=== PATIENT | male | born 1960 | race Caucasian/White ===

== ENCOUNTER 2025-06-26 11:08 | Inpatient (IN) | payer OTHER ==
--- OUTSIDE RECORDS SUMMARY | 2025-06-26 11:13 | XMS REPORT | Continuity of Care Document ---
Author Name Unknown Address [address] [facility]. [address] [place] [address] [facility] [address] [facility] [address] [place] [address] Care Team Providers Care Teacher'S Assistant Name Role Phone NO PHYSICIAN, . Primary Care Physician Unavailab STEVIE Butcher Attending Clinician Unavailable ART HALL Attending Clinician Unavailalireza QUEZADA Attending Clinician Unavailable ULISES STEWART Attending Clinician Unavailable TJ AZUL I. Attending Clinician UnavailLAZARA Chinchilla Attending Clinician Unavailable PILAR Admitting Clinician Unavailable Problems Condition Name Condition Details Condition Category Status Onset Date Resolution Date Last Treatment Date Treating Clinician Comments Source Dehydratio n Problem [facility] Dental abscess Problem [facility] Low back pain Problem [facility] Pneumonia Problem [facility] Vir[facility] infection Problem [facility] Cocaine abuse Problem [facility] Hypertensi on Problem [facility] Social History Social Habit Start Date Stop Date Quantity Comments Source History of tobacco use [facility] Smoking Status Start Date Stop Date Source Current some day smoker 2023-03-20 10:44:00 [facility] Medications Ordered Medication Name Filled Medication Name Start Date Stop Date Current Medication? Ordering Clinician Indication Dosage Frequency Signature (SIG) Comments Components Source Amlodipine Besylate (Norvasc *) 10 Mg TAB Amlodipine Besylate (Norvasc *) 10 Mg TAB 06-11 12:59: 00 Yes 1{tbl} [facility] Albuterol (Ventolin Hfa *) 90 Mcg/Act INH Albuterol (Ventolin Hfa *) 90 Mcg/Act INH 03-20 13:55: 00 Yes 2 [facility] Azithromyci n (Zithromax Z-Tan *) 250 Mg TAB Azithromyci n (Zithromax Z-Tan *) 250 Mg TAB 03-20 13:55: 00 Yes 1{tbl} [facility] Benzonatate (Tessalon *) 100 Mg CAP Benzonatate (Tessalon *) 100 Mg CAP 03-20 13:55: 00 Yes 1 [facility] Prednisone (Prednisone *) 20 Mg TAB Prednisone (Prednisone *) 20 Mg TAB 03-20 13:55: 00 Yes 2{tbl} [facility] Acetaminoph en W/ Codeine #3 * (Tylenol Codeine #3 300MG/30MG *) 1 Tab TAB Acetaminoph en W/ Codeine #3 * (Tylenol Codeine #3 300MG/30MG *) 1 Tab TAB 03-01 10:02: 30 Yes 1{tbl} [facility] Sertraline Hcl (Zoloft *) 50 Mg TAB Sertraline Hcl (Zoloft *) 50 Mg TAB 03-01 10:02: 30 Yes 50mg [facility] Trazodone Hcl (Desyrel 100 Mg*) 100 Mg TAB Trazodone Hcl (Desyrel 100 Mg*) 100 Mg TAB 03-01 10:02: 30 Yes 100mg [facility] Vital Signs Vital Name Observation Time Observation Value Comments S ource Height 2025-06-11 08:54:00 165.945193 cm [facility] Weight 2025-06-11 08:54:00 70.823016 kg [facility] BMI (Body Mass Index) 2025-06-11 08:54:00 25.8 kg/m2 [facility] Height 2025-06-10 19:00:00 167.096493 cm [facility] Weight 2025-06-10 19:00:00 70.329151 kg [facility] BMI (Body Mass Index) 2025-06-10 19:00:00 25.0 kg/m2 [facility] Encounters Start Date/Time End Date/Time Encounter Type Admission Type Attending [facility] Care Department Encounter ID Source 2025-06-11 08:43:00 2025-06-11 13:45:00 Emergency ER STEVIE GAMA [facility] [id number] [facility] 2025-06-11 08:43:00 2025-06-11 13:45:00 Departed Emergency Room [facility] [id number] [facility] 2025-06-10 19:01:00 2025-06-10 22:30:00 Emergency ER STEVIE GAMA [facility] [id number] [facility] 2025-06-10 19:01:00 2025-06-10 22:30:00 Departed Emergency Room [facility] [id number] [facility] 2023-03-20 10:34:00 2023-03-20 15:10:00 Emergency ER ART HALL [facility] [id number] [facility] 2019-08-02 15:47:00 2019-08-02 16:33:00 Emergency ER ULISES STEWART [facility] [id number] [facility] 2016-08-28 12:21:00 2016-08-28 12:21:00 Outpatient TJ CHUN [facility] [id number] [facility] 2016-07-31 12:06:00 2016-07-31 12:06:00 Outpatient TJ CHUN [facility] [id number] [facility] 2016-03-01 09:33:00 2016-03-01 09:33:00 Outpatient LAZARA GOVEA [facility] [id number] [facility] 2015-12-01 10:57:00 2015-12-01 10:57:00 Outpatient TJ CHUN [facility] [id number] [facility] Results Test Description Test Time Test Comments Results Result Co mments Source [facility] ZykLolmimtto9689-36-90 10:28:00* Test Item Value Reference Range Interpretation Comme nts Methadone Level (test code = VTX2070) NEGATIVE [facility] CtrBenzodiazepines screen [id number] 10:28:00* Test Item Value Reference Range Interpretation Comme [facility] Urine Benzodiazepines Screen (test code = 551881641) NEGATIVE [facility] CtrCannabinoids (6-tzlfgbz-IKN) juchcnxirdl6660-34-16 10:28:00* Test Item Value Reference Range Interpretation Comme [facility] Urine Cannabinoids (test cod e = 451650649) NEGATIVE [facility] CtrCocaine metabolite digtuu8332-00-34 10:28:00* Test Item Value Reference Range Interpretation Comme [facility] Urine Cocaine Metabolite (te st code = 626341613) POSITIVE [facility] CtrOpiates tufoj1423-03-68 10:28:00* Test Item Value Reference Range Interpretation Comme [facility] Urine Opiates Screen (test c ode = 643880312) NEGATIVE [facility] CtrUrine hydrocodone measurement (mass/volume) 2025-06-11 10:28:00* Test Item Value Reference Range Interpretation Comme nts Hydrocodone Level (test code = 3681-4) NEGATIVE [facility] CtrUrine fentanyl measurement (mass/volume)2025-06-11 10:28:00* Test Item Value Reference Range Interpretation Comme [facility] Urine Fentanyl Screen (test code = 3637-6) NEGATIVE [facility] CtrPhencyclidine (PCP) [id number] 10:28:00* Test Item Value Reference Range Interpretation Comme nts Urine Phencyclidine (PCP) Le fuad (test code = 872700856) NEGATIVE [facility] CtrPropoxyphene [Mass/volume] in Yxrrz1585-98-49 10:28:00* Test Item Value Reference Range Interpretation Comme nts Propoxyphene Level (test cod e = 3545-1) NEGATIVE [facility] CtroxyCODONE [Mass/volume] in Ckcwm1151-82-03 10:28:00* Test Item Value Reference Range Interpretation Comme nts Oxycodone Level (test code = 48936-0) NEGATIVE [facility] CtrSpecific gravity of Urine by Automated test strip 2025-06-11 10:26:00* Test Item Value Reference Range Interpretation Comme nts Urine Specific [place] (test code = 23758-3) 1.038 [facility] LqhZnohas7395-55-51 10:23:00* Test Item Value Reference Range Interpretation Comme nts Lipase (test code = 167126701) 22 [facility] CtrRBC count ur hciy0303-82-99 10:19:00* Test Item Value Reference Range Interpretation Comme nts Urine RBC (test code = 798-9) 21-50 [facility] CtrUrine examination for white blood cells (WBC) 2025-06-11 10:19:00* Test Item Value Reference Range Interpretation Comme nts Urine WBC (test code = 853832290) 3-5 [facility] CtrAutomated epithelial cells count in urine sediment (number/area)2025-06-11 10:19:00* Test Item Value Reference Range Interpretation Comme nts Urine Epithelial Cells (test code = 08413-2) 3-5 [facility] CtrBacteria detection in urine sediment by light kmhlmszddx0790-75-65 10:19:00* Test Item Value Reference Range Interpretation Comme nts Urine Bacteria (test code = 04918-8) None Seen [facility] CtrUrine casts detection by automated method 2025-06-11 10:19:00* Test Item Value Reference Range Interpretation Comme nts Urine Casts (test code = 53926-6) 11-20 [facility] CtrColor of Urine by Qntr2001-70-82 10:17:00* Test Item Value Reference Range Interpretation Comme nts Urine Color (test code = 75905-8) Yellow [facility] CtrAppearance of Lrxfw6967-27-20 10:17:00* Test Item Value Reference Range Interpretation Comme nts Urine Appearance (test code = 5767-9) Clear [facility] CtrUrine glucose wlndyspfu9822-91-90 10:17:00* Test Item Value Reference Range Interpretation Comme nts Urine Glucose (UA) (test code = 2349-9) Trace [facility] CtrBilirubin se7976-46-20 10:17:00* Test Item Value Reference Range Interpretation Comme nts Urine Bilirubin (test code = 792480299) Negative [facility] CtrKetones va4333-92-86 10:17:00* Test Item Value Reference Range Interpretation Comme [facility] Urine Ketones (test code = 57639579) Negative [facility] CtrUrine blood hpruancez9454-41-73 10:17:00* Test Item Value Reference Range Interpretation Comme nts Urine Blood (test code = 467488-3) 1+ (SMALL) [facility] CtrpH wu3123-55-43 10:17:00* Test Item Value Reference Range Interpretation Comme nts Urine pH (test code = 2756-5) 6.500 [facility] CtrProtein hr1183-98-18 10:17:00* Test Item Value Reference Range Interpretation Comme nts Urine Protein (test code = 96988570) 4+ [facility] CtrUrobilinogen, urine, mc3974-78-35 10:17:00* Test Item Value Reference Range Interpretation Comme [facility] Urine Urobilinogen (test cod e = 924933369) 0.2 [facility] nitrate rijrmxbhy6888-44-86 10:17:00* Test Item Value Reference Range Interpretation Comme nts Urine Nitrate (test code = 98771-1) Negative [facility] leukocyte esterase podnediwh4102-97-42 10:17:00* Test Item Value Reference Range Interpretation Comme nts Urine Leukocyte Esterase (te st code = 965115-9) Negative [facility] CtrAlcohol level, dohkk3004-62-39 09:58:00* Test Item Value Reference Range Interpretation Comme nts Ethyl Alcohol Level (test co de = 627497285) < 10.0 [facility] CtrBlood hemoglobin A1C measurement (mass/volume) 2025-06-11 09:52:00* Test Item Value Reference Range Interpretation Comme [facility] Hemoglobin A1c (test code = 10860-0) 5.7 [facility] CtrNT-proBNP ebusugsbxkp8640-84-06 09:45:00* Test Item Value Reference Range Interpretation Comme [facility] BN-Nru-S-Type Natriuretic Pe ptide (test code = 919695318) 325 [facility] CtrSerum or plasma cardiac troponin I panel by high sensitivity bfjcha2109-21-94 09:44:00* Test Item Value Reference Range Interpretation Comme [facility] Troponin T High Sensitivity (test code = 88268-7) 14.3 [facility] CtrBilirubin vbats6280-50-49 09:42:00* Test Item Value Reference Range Interpretation Comme [facility] Total Bilirubin (test code = ZBK9806) 0.2 [facility] CtrSerum or plasma urea nitrogen measurement (mass/volume)2025-06-11 09:42:00* Test Item Value Reference Range Interpretation Comme [facility] Blood Urea Nitrogen (test co de = 3094-0) 15 [facility] ZtnQBJ1618-58-86 09:42:00* Test Item Value Reference Range Interpretation Comme nts Aspartate Amino Transf (AST/ SGOT) (test code = IQP7982) 10 [facility] CtrCreatinine sgbel3950-40-52 09:42:00* Test Item Value Reference Range Interpretation Comme nts Creatinine (test code = 119803238) 0.80 [facility] CtrEstimated glomerular filtration rate (GFR) glqtdxnmeyzem0648-29-51 09:42:00* Test Item Value Reference Range Interpretation Comme [facility] Glomerular Filtration Rate C alc (test code = 349352255) > 60.00 [facility] CtrBUN/creatinine zzijx7637-37-65 09:42:00* Test Item Value Reference Range Interpretation Comme nts BUN/Creatinine Ratio (test c ode = 77550874) 18.8 [facility] CtrBody fluid potassium twrmnuhvglf7286-63-99 09:42:00* Test Item Value Reference Range Interpretation Comme nts Potassium Level (test code = 2821-7) 4.0 [facility] JvqWC37940-92-79 09:42:00* Test Item Value Reference Range Interpretation Comme nts Carbon Dioxide Level (test c ode = 65934477) 26 [facility] CtrAnion gap aiuhoqghtyo6549-62-88 09:42:00* Test Item Value Reference Range Interpretation Comme nts Anion Gap (test code = 27148457) 12.0 [facility] CtrCalcium qpnth1353-27-43 09:42:00* Test Item Value Reference Range Interpretation Comme nts Calcium Level (test code = 41769760) 8.2 [facility] MobGdgdbnxbg4384-79-55 09:42:00* Test Item Value Reference Range Interpretation Comme nts Magnesium Level (test code = 51750233) 2.1 [facility] CtrGlobulin hhc1635-45-72 09:42:00* Test Item Value Reference Range Interpretation Comme nts Globulin (test code = 189843616) 3.1 [facility] CtrALT (SGPT) ser/dafo9396-77-64 09:42:00* Test Item Value Reference Range Interpretation Comme nts Alanine Aminotransferase (AL T/SGPT) (test code = 1742-6) 6 [facility] CtrAmylase wfxdr9783-92-32 09:42:00* Test Item Value Reference Range Interpretation Comme nts Amylase Level (test code = 1798-8) 43 [facility] CtrALP ser/ovip7128-37-93 09:42:00* Test Item Value Reference Range Interpretation Comme nts Total Alkaline Phosphatase ( test code = 6768-6) 117 [facility] RxqUwnjszh0324-22-06 09:38:00* Test Item Value Reference Range Interpretation Comme nts Ammonia (test code = HRY3395) 16.1 [facility] CtrAbsolute eosinophil ehijo0857-06-41 09:21:00* Test Item Value Reference Range Interpretation Comme nts Eosinophils # (Auto) (test c ode = OTA9674) 0.21 [facility] CtrRBC qdnqn3804-24-58 09:21:00* Test Item Value Reference Range Interpretation Comme [facility] Red Blood Count (test code = 32101053) 4.64 [facility] NsyUyrkvwygiy1505-68-55 09:21:00* Test Item Value Reference Range Interpretation Comme [facility] Hematocrit (test code = 30342784) 44.6 [facility] CtrMCV (mean corpuscular volume) determination 2025-06-11 09:21:00* Test Item Value Reference Range Interpretation Comme [facility] Mean Corpuscular Volume (rowan t code = 46369-0) 96.1 [facility] CtrMean corpuscular hemoglobin (MCH) determination 2025-06-11 09:21:00* Test Item Value Reference Range Interpretation Comme [facility] Mean Corpuscular Hemoglobin (test code = 56913504) 31.0 [facility]Mean corpuscular hemoglobin concentration (MCHC) ukgwgzlcnbcyy3746-58-29 09:21:00* Test Item Value Reference Range Interpretation Comme [facility] Mean Corpuscular Hemoglobin Concent (test code = 95570504) 32.3 [facility] CtrRBC distribution width coefficient of variation 2025-06-11 09:21:00* Test Item Value Reference Range Interpretation Comme [facility] Red Cell Distribution Width (test code = 56575702) 11.9 [facility] CtrPlatelet kzyaa7424-31-09 09:21:00* Test Item Value Reference Range Interpretation Comme [facility] Platelet Count (test code = 25863306) 342 [facility] CtrMean platelet zjwfyo2776-32-83 09:21:00* Test Item Value Reference Range Interpretation Comme [facility] Mean Platelet Volume (test c ode = 68347108) 8.9 [facility] CtrNeutrophils seg % wft4188-82-11 09:21:00* Test Item Value Reference Range Interpretation Comme [facility] Neutrophils (%) (Auto) (test code = 91017-4) 61.2 [facility] CtrAbsolute immature granulocyte zxiil5397-77-89 09:21:00* Test Item Value Reference Range Interpretation Comme nts Absolute Immature Granulocyt e (auto (test code = 16210-1) 0.01 [facility] CtrBasophil % kcnhgt5093-15-52 09:21:00* Test Item Value Reference Range Interpretation Comme nts Basophils (%) (Auto) (test c ode = 31173-7) 0.5 [facility] CtrBlood band neutrophils count (number/volume) 2025-06-11 09:21:00* Test Item Value Reference Range Interpretation Comme nts Neutrophils # (Auto) (test c ode = 61715-1) 3.95 [facility] CtrAbsolute lymphocyte ttpju0104-56-05 09:21:00* Test Item Value Reference Range Interpretation Comme nts Lymphocytes # (Auto) (test c ode = 53201-8) 1.83 [facility] CtrAbsolute basophil tbtvh7956-90-09 09:21:00* Test Item Value Reference Range Interpretation Comme nts Basophils # (Auto) (test cod e = 66096323) 0.03 [facility] CtrAbsolute NRBC hener3476-04-72 09:21:00* Test Item Value Reference Range Interpretation Comme nts Nucleated Red Blood Cells # (test code = 410099103) 0 [facility] CtrAdenovirus Ab [Presence] in Pqndihwo3266-24-54 20:19:00* Test Item Value Reference Range Interpretation Comme [facility] Nasopharyngeal Adenovirus PC R (test code = 71706-5) Not detected [facility] coronavirus antigen detection by kfbmtidxkluxbcuxgw1050-66-88 20:19:00* Test Item Value Reference Range Interpretation Comme nts Nasopharyngeal Coronavirus 2 29E PCR (test code = 76027-8) Not detected [facility] CtrCoronavirus HKU1 RNA assay by [id number] 20:19:00* Test Item Value Reference Range Interpretation Comme nts Nasopharyngeal Coronavirus H KU1 PCR (test code = 76445-6) Not detected [facility] CtrCoronavirus NL63 RNA assay by YPU7595-44-57 20:19:00* Test Item Value Reference Range Interpretation Comme nts Nasopharyngeal Coronavirus N L63 PCR (test code = 52574-3) Not detected [facility] coronavirus OC43 antigen detection by jmcjkjouiiiuzwmsgh4872-17-10 20:19:00* Test Item Value Reference Range Interpretation Comme nts Nasopharyngeal Coronavirus O C43 PCR (test code = 27537-8) Not detected [facility] Resources[facility] coronavirus RNA [Presence] in Specimen by URIEL with probe bdutdsedo9318-28-06 20:19:00* Test Item Value Reference Range Interpretation Comme nts Nasopharyngeal SARS-CoV-2 PC R (test code = 94208-8) Not detected [facility] ResourcesHurange metapneumovirus detection by EYL2603-44-35 20:19:00* Test Item Value Reference Range Interpretation Comme nts Nasophryn Human Metapneumovi amelia PCR (test code = 43170-5) Not detected [facility] CtrRespiratory specimen human rhinovirus 1 and 2 RNA detection by probe and target amplification cgxcxb7071-08-48 20:19:00* Test Item Value Reference Range Interpretation Comme nts Nasopharyn Human Rhino/Enterovirus (test code = 179076-1) Not detected [facility] CtrInfluenza virus A Ag [Presence] in Specimen 2025-06-10 20:19:00* Test Item Value Reference Range Interpretation Comme [facility] Nasopharyngeal Influenza Typ e A PCR (test code = 45365-0) Not detected [facility] CtrInfluenza virus B Ab [Units/volume] in Specimen 2025-06-10 20:19:00* Test Item Value Reference Range Interpretation Comme [facility] Nasopharyngeal Influenza B ( PCR) (test code = 19115-5) Not detected [facility] CtrNasopharyngeal specimen parainfluenza virus type 1 RNA detection by probe and target amplification vnfnii3530-10-16 20:19:00* Test Item Value Reference Range Interpretation Comme nts Nasopharyngeal Parainfluenza 1 PCR (test code = 59070-5) Not detected [facility] CtrParainfluenza virus 2 RNA [Presence] in Specimen by URIEL with probe ppnfvwwug3037-02-79 20:19:00* Test Item Value Reference Range Interpretation Comme nts Nasopharyngeal Parainfluenza 2 PCR (test code = 90698-7) Not detected [facility] CtrParainfluenza virus 3 RNA [Presence] in Specimen by URIEL with probe uffilhgxl9363-38-26 20:19:00* Test Item Value Reference Range Interpretation Comme nts Nasopharyngeal Parainfluenza 3 PCR (test code = 59000-6) Not detected [facility] CtrParainfluenza voqso8984-08-20 20:19:00* Test Item Value Reference Range Interpretation Comme nts Nasopharyngeal Parainfluenza 4 PCR (test code = 10336-6) Not detected [facility] [facility] CtrRapid respiratory syncytial virus (RSV) antigen [id number] 20:19:00* Test Item Value Reference Range Interpretation Comme nts Nasophr Respiratory Syncytia l Virus (test code = 87891-5) Not detected [facility] CtrBordetella parapertussis [id number] 20:19:00* Test Item Value Reference Range Interpretation Comme nts Nasopharyn Bordetella parapertussis (test code = 20797-1) Not detected [facility] CtrBordetella pertussis Ab [Presence] in Specimen 2025-06-10 20:19:00* Test Item Value Reference Range Interpretation Comme nts Nasopharyngeal Bordetella pertussis (test code = 81012-2) Not detected [facility] CtrChlamydia pneumoniae [id number] 20:19:00* Test Item Value Reference Range Interpretation Comme nts Nasopharyngeal Chlamydia pneumoniae (test code = 99156-5) Not detected [facility] CtrSerum Mycoplasma pneumoniae antibody assay on first specimen (units/volume)2025-06-10 20:19:00* Test Item Value Reference Range Interpretation Comme nts Nasopharyngal Mycoplasma pneumoniae (test code = 47265-3) Not detected [facility] CtrAdenovirus Ab [Presence] in [id number] 20:19:00* Test Item Value Reference Range Interpretation Comme nts Nasopharyngeal Adenovirus PC R (test code = 06711-2) Not detected [facility] CtrHuman coronavirus antigen detection by [id number]-48 20:19:00* Test Item Value Reference Range Interpretation Comme nts Nasopharyngeal Coronavirus 2 29E PCR (test code = 49251-9) Not detected [facility] CtrCoronavirus HKU1 RNA assay by [id number] 20:19:00* Test Item Value Reference Range Interpretation Comme nts Nasopharyngeal Coronavirus H KU1 PCR (test code = 96514-0) Not detected [facility] NL63 RNA assay by [id number] 20:19:00* Test Item Value Reference Range Interpretation Comme nts Nasopharyngeal Coronavirus N L63 PCR (test code = 54224-7) Not detected [facility] coronavirus OC43 antigen detection by xrgsqmswcbwydvdjcg6987-22-13 20:19:00* Test Item Value Reference Range Interpretation Comme nts Nasopharyngeal Coronavirus O C43 PCR (test code = 46963-1) Not detected [facility] Resources[facility] coronavirus RNA [Presence] in Specimen by URIEL with probe [id number] 20:19:00* Test Item Value Reference Range Interpretation Comme nts Nasopharyngeal SARS-CoV-2 PC R (test code = 63618-7) Not detected [facility] Resources[facility] metapneumovirus detection by [id number] 20:19:00* Test Item Value Reference Range Interpretation Comme nts Nasophryn Human Metapneumovi amelia PCR (test code = 28676-6) Not detected [facility] CtrRespiratory specimen human rhinovirus 1 and 2 RNA detection by probe and target amplification [id number] 20:19:00* Test Item Value Reference Range Interpretation Comme nts Nasopharyn Human Rhino/Enterovirus (test code = 181936-1) Not detected [facility] CtrInfluenza virus A Ag [Presence] in Specimen 2025-06-10 20:19:00* Test Item Value Reference Range Interpretation Comme nts Nasopharyngeal Influenza Typ e A PCR (test code = 16785-9) Not detected [facility] CtrInfluenza virus B Ab [Units/volume] in Specimen 2025-06-10 20:19:00* Test Item Value Reference Range Interpretation Comme nts Nasopharyngeal Influenza B ( PCR) (test code = 48268-5) Not detected [facility] CtrNasopharyngeal specimen parainfluenza virus type 1 RNA detection by probe and target amplification [id number] 20:19:00* Test Item Value Reference Range Interpretation Comme nts Nasopharyngeal Parainfluenza 1 PCR (test code = 36205-1) Not detected [facility] CtrParainfluenza virus 2 RNA [Presence] in Specimen by URIEL with probe [id number] 20:19:00* Test Item Value Reference Range Interpretation Comme nts Nasopharyngeal Parainfluenza 2 PCR (test code = 17612-5) Not detected [facility] CtrParainfluenza virus 3 RNA [Presence] in Specimen by URIEL with probe [id number] 20:19:00* Test Item Value Reference Range Interpretation Comme nts Nasopharyngeal Parainfluenza 3 PCR (test code = 06639-5) Not detected [facility] CtrParainfluenza [id number] 20:19:00* Test Item Value Reference Range Interpretation Comme nts Nasopharyngeal Parainfluenza 4 PCR (test code = 32137-2) Not detected [facility] CtrRapid respiratory syncytial virus (RSV) antigen [id number] 20:19:00* Test Item Value Reference Range Interpretation Comme nts Nasophr Respiratory Syncytia l Virus (test code = 40847-4) Not detected [facility] CtrBordetella parapertussis [id number] 20:19:00* Test Item Value Reference Range Interpretation Comme nts Nasopharyn Bordetella parapertussis (test code = 74234-4) Not detected [facility] CtrBordetella pertussis Ab [Presence] in Specimen 2025-06-10 20:19:00* Test Item Value Reference Range Interpretation Comme nts Nasopharyngeal Bordetella pertussis (test code = 99584-3) Not detected [facility] CtrChlamydia pneumoniae [id number] 20:19:00* Test Item Value Reference Range Interpretation Comme nts Nasopharyngeal Chlamydia pneumoniae (test code = 92595-5) Not detected [facility] CtrSerum Mycoplasma pneumoniae antibody assay on first specimen (units/volume)2025-06-10 20:19:00* Test Item Value Reference Range Interpretation Comme nts Nasopharyngal Mycoplasma pneumoniae (test code = 80998-9) Not detected [facility] CtrNT-proBNP jxskebmqyce4399-31-35 19:52:00* Test Item Value Reference Range Interpretation Comme nts GD-Ptd-M-Type Natriuretic Pe ptide (test code = 671679312) 281 [facility] CtrSerum or plasma cardiac troponin I panel by high sensitivity fzcebv4383-68-25 19:51:00* Test Item Value Reference Range Interpretation Comme nts Troponin T High Sensitivity (test code = 53178-1) 16.4 [facility] VqbPhqtfcn8218-06-94 19:50:00* Test Item Value Reference Range Interpretation Comme nts Ammonia (test code = LNO8245) 39.2 [facility] CtrAlcohol level, [id number] 19:50:00* Test Item Value Reference Range Interpretation Comme nts Ethyl Alcohol Level (test co de = 297800937) < 10.0 [facility] CtrBilirubin iimjw6988-22-85 19:46:00* Test Item Value Reference Range Interpretation Comme nts Total Bilirubin (test code = HBO3085) < 0.2 [facility] CtrSerum or plasma urea nitrogen measurement (mass/volume)2025-06-10 19:46:00* Test Item Value Reference Range Interpretation Comme nts Blood Urea Nitrogen (test co de = 3094-0) 16 [facility] [id number] 19:46:00* Test Item Value Reference Range Interpretation Comme nts Aspartate Amino Transf (AST/ SGOT) (test code = VCR8430) 10 [facility] CtrCreatinine [id number] 19:46:00* Test Item Value Reference Range Interpretation Comme nts Creatinine (test code = 714553224) 0.93 [facility] CtrEstimated glomerular filtration rate (GFR) jzmarlxhqpuxo6382-72-55 19:46:00* Test Item Value Reference Range Interpretation Comme nts Glomerular Filtration Rate C alc (test code = 013339850) > 60.00 [facility] CtrBUN/creatinine lkqxv5501-52-28 19:46:00* Test Item Value Reference Range Interpretation Comme nts BUN/Creatinine Ratio (test c ode = 35248649) 17.2 [facility] CtrBody fluid potassium xujyihbslqi3586-11-89 19:46:00* Test Item Value Reference Range Interpretation Comme nts Potassium Level (test code = 2821-7) 3.6 [facility] IyfPP84477-85-13 19:46:00* Test Item Value Reference Range Interpretation Comme nts Carbon Dioxide Level (test c ode = 21974520) 25 [facility] CtrAnion gap jjdryweyirg9603-59-62 19:46:00* Test Item Value Reference Range Interpretation Comme nts Anion Gap (test code = 32768986) 13.6 [facility] CtrCalcium sqjyx0661-07-11 19:46:00* Test Item Value Reference Range Interpretation Comme nts Calcium Level (test code = 81212539) 8.1 [facility] LjvOvlxkhggu6532-69-19 19:46:00* Test Item Value Reference Range Interpretation Comme nts Magnesium Level (test code = 33625480) 2.0 [facility] CtrGlobulin drt4103-04-30 19:46:00* Test Item Value Reference Range Interpretation Comme nts Globulin (test code = 870180172) 2.8 [facility] CtrALT (SGPT) ser/kgcr3620-54-75 19:46:00* Test Item Value Reference Range Interpretation Comme nts Alanine Aminotransferase (AL T/SGPT) (test code = 1742-6) 7 [facility] CtrAmylase [id number] 19:46:00* Test Item Value Reference Range Interpretation Comme nts Amylase Level (test code = 1798-8) 46 [facility] XfdBzqrdu4633-26-93 19:46:00* Test Item Value Reference Range Interpretation Comme nts Lipase (test code = 492122887) 29 [facility] CtrALP ser/fdqd7924-30-95 19:46:00* Test Item Value Reference Range Interpretation Comme nts Total Alkaline Phosphatase ( test code = 6768-6) 115 [facility] ResourcesMean corpuscular hemoglobin concentration (MCHC) nrfcvhdxexqds7895-44-23 19:20:00* Test Item Value Reference Range Interpretation Comme [facility] Mean Corpuscular Hemoglobin Concent (test code = 89692352) 33.0 [facility] CtrRBC distribution width coefficient of variation 2025-06-10 19:20:00* Test Item Value Reference Range Interpretation Comme [facility] Red Cell Distribution Width (test code = 73548231) 12.0 [facility] CtrPlatelet [id number] 19:20:00* Test Item Value Reference Range Interpretation Comme [facility] Platelet Count (test code = 89095466) 366 [facility] CtrMean platelet [id number] 19:20:00* Test Item Value Reference Range Interpretation Comme nts Mean Platelet Volume (test c ode = 08374617) 8.9 [facility] CtrNeutrophils seg % [id number] 19:20:00* Test Item Value Reference Range Interpretation Comme nts Neutrophils (%) (Auto) (test code = 51841-4) 67.8 [facility] CtrAbsolute immature granulocyte [id number] 19:20:00* Test Item Value Reference Range Interpretation Comme nts Absolute Immature Granulocyt e (auto (test code = 50460-8) 0.01 [facility] CtrBasophil % [id number] 19:20:00* Test Item Value Reference Range Interpretation Comme nts Basophils (%) (Auto) (test c ode = 31013-5) 0.5 [facility] CtrBlood band neutrophils count (number/volume) 2025-06-10 19:20:00* Test Item Value Reference Range Interpretation Comme nts Neutrophils # (Auto) (test c ode = 15472-0) 4.01 [facility] CtrAbsolute lymphocyte [id number] 19:20:00* Test Item Value Reference Range Interpretation Comme nts Lymphocytes # (Auto) (test c ode = 33957-8) 1.28 [facility] CtrAbsolute basophil [id number] 19:20:00* Test Item Value Reference Range Interpretation Comme nts Basophils # (Auto) (test cod e = 29618011) 0.03 [facility] CtrAbsolute NRBC [id number] 19:20:00* Test Item Value Reference Range Interpretation Comme nts Nucleated Red Blood Cells # (test code = 711290837) 0 [facility] CtrAbsolute eosinophil [id number] 19:20:00* Test Item Value Reference Range Interpretation Comme nts Eosinophils # (Auto) (test c ode = JKE8553) 0.15 [facility] CtrRBC [id number] 19:20:00* Test Item Value Reference Range Interpretation Comme nts Red Blood Count (test code = 47821503) 4.30 [facility] OtyWuujveuopx4354-76-75 19:20:00* Test Item Value Reference Range Interpretation Comme nts Hematocrit (test code = 25703802) 40.3 [facility] CtrMCV (mean corpuscular volume) determination 2025-06-10 19:20:00* Test Item Value Reference Range Interpretation Comme nts Mean Corpuscular Volume (rowan t code = 45996-4) 93.7 [facility] CtrMean corpuscular hemoglobin (MCH) determination 2025-06-10 19:20:00* Test Item Value Reference Range Interpretation Comme nts Mean Corpuscular Hemoglobin (test code = 89999152) 30.9 [facility] Ctr Notes <thead> Date/Time Note Provider Source [facility] [id number] 13:48:24 Future Tests Future scheduled test information is unavailable Pending Tests <thead> Test Name Ordered Date Scheduled Date Urine Color June 10, 2025 7:04pm Urine Appearance June 10, 2025 7:04pm Urine Glucose (UA) June 10, 2025 7:04pm Urine Bilirubin June 10, 2025 7:04pm Urine Ketones June 10, 2025 7:04pm Urine Specific [place] June 10, 2025 7:04p m Urine Blood June 10, 2025 7:04pm Urine pH June 10, 2025 7:04pm Urine Protein June 10, 2025 7:04pm Urine Urobilinogen June 10, 2025 7:04pm Urine Nitrate June 10, 2025 7:04pm Urine Leukocyte Esterase June 10, 2025 7:0 4pm Urine RBC June 10, 2025 7:04pm Urine WBC June 10, 2025 7:04pm Urine Bacteria June 10, 2025 7:04pm Urine Culture Reflexed June 10, 2025 7:04p m Urine Amphetamines Screen June 10, 2025 7: 04pm Urine Barbiturates, Quantitative June 10, 2025 7:04pm Urine Benzodiazepines Screen June 10, 2025 7:04pm Urine Cannabinoids June 10, 2025 7:04pm Urine Cocaine Metabolite June 10, 2025 7:0 4pm Urine Opiates Screen June 10, 2025 7:04pm Hydrocodone Level June 10, 2025 7:04pm Urine Fentanyl Screen June 10, 2025 7:04pm Urine Phencyclidine (PCP) Level June 10, 7:04pm Methadone Level June 10, 2025 7:04pm Propoxyphene Level June 10, 2025 7:04pm Oxycodone Level June 10, 2025 7:04pm Urine Drug Screen Note June 10, 2025 7:04p m Future Visits Future appointment information is unavailable Referrals to Other Providers <thead> Reason for Referral Referral Start Date Provider Provider Contact Information Provider Address [place] Work Phone: [place] [phone] NO PHYSICIAN NO PHYSICIAN NO PHYSICIAN Future Procedures <thead> Procedure Name Ordered Date Scheduled Date URINALYSIS June 10, 2025 7:06pm Septe mber 2024 7:04pm URINE DRUG SCREEN June 10, 2025 7:06pm Sep tember 2024 7:04pm Insert Peripheral IV Access June 11, 2025 9:32am June 11, 2025 Cardiac, BP, Pulse Ox Monitor June 11 9:32am June 11, 2025 Future Medications Future medication information is unavailable Patient Instructions <tbody> Dental Abscess, Fccu-ou-Zlwu Community-Acquired Pneumonia , Adult, Pjnr-tf-Psik Dehydration, Adult, Easy-to- Read Viral Illness, Adult Cocaine Use Disorder Hypertension, Adult, Easy-to -Read [facility] [id number] 22:47:33 Patient Care Team <thead> Team Status: Active Member Role Status Dates . NO PHYSICIAN primary care physician Active STEVIE GAMA MD Emergency Provider Active JAILYN HILTON Next of Kin Active JAILYN CORNELIUSIAN Emergency Contact Active [facility] [id number] 22:47:33 Future Tests Future scheduled test information is unavailable Pending Tests <thead> Test Name Ordered Date Scheduled Date Urine Color June 10, 2025 7:04pm Urine Appearance June 10, 2025 7:04pm Urine Glucose (UA) June 10, 2025 7:04pm Urine Bilirubin June 10, 2025 7:04pm Urine Ketones June 10, 2025 7:04pm Urine Specific [place] June 10, 2025 7:04p m Urine Blood June 10, 2025 7:04pm Urine pH June 10, 2025 7:04pm Urine Protein June 10, 2025 7:04pm Urine Urobilinogen June 10, 2025 7:04pm Urine Nitrate June 10, 2025 7:04pm Urine Leukocyte Esterase June 10, 2025 7:0 4pm Urine RBC June 10, 2025 7:04pm Urine WBC June 10, 2025 7:04pm Urine Bacteria June 10, 2025 7:04pm Urine Culture Reflexed June 10, 2025 7:04p m Urine Amphetamines Screen June 10, 2025 7: 04pm Urine Barbiturates, Quantitative June 10, 2025 7:04pm Urine Benzodiazepines Screen June 10, 2025 7:04pm Urine Cannabinoids June 10, 2025 7:04pm Urine Cocaine Metabolite June 10, 2025 7:0 4pm Urine Opiates Screen June 10, 2025 7:04pm Hydrocodone Level June 10, 2025 7:04pm Urine Fentanyl Screen June 10, 2025 7:04pm Urine Phencyclidine (PCP) Level June 10, 025 7:04pm Methadone Level June 10, 2025 7:04pm Propoxyphene Level June 10, 2025 7:04pm Oxycodone Level June 10, 2025 7:04pm Urine Drug Screen Note June 10, 2025 7:04p m Future Visits Future appointment information is unavailable Referrals to Other Providers <thead> Reason for Referral Referral Start Date Provider Provider Contact Information Provider Address [place] Work Phone: [address] [phone] NO PHYSICIAN NO PHYSICIAN Future Procedures <thead> Procedure Name Ordered Date Scheduled Date URINALYSIS June 10, 2025 7:06pm Junie roque 2024 7:04pm URINE DRUG SCREEN June 10, 2025 7:06pm Sep tember 2024 7:04pm Future Medications Future medication information is unavailable Patient Instructions <tbody> Dental Abscess, Qqrz-oh-Tvia Community-Acquired Pneumonia , Adult, Itdw-ok-Flnx Dehydration, Adult, Easy-to- Read Viral Illness, Adult [facility]
[2025-06-26 12:41] LABS: Absolute Lymphocytes (CBC) 1.4 K/uL (0.7-4.9); Hematocrit 36.3 % (39.6-49.0); Hemoglobin 12.3 g/dL (13.6-17.9); MCH 31.0 pg (27.0-35.0); MCHC 34.0 g/dL (32.0-36.0); MCV 91.3 fL (80-100); MPV 6.9 fL (7.6-11.3); Nucleated RBC Absolute Count 0.0 (0-0); Nucleated Red Blood Cells % 0.0 % (0-0); RBC Red Blood Cell Count 3.98 M/uL (4.33-5.43); White Blood Count 6.50 thou/uL (4.3-10.9)
--- NOTE | 2025-06-26 13:04 | RAD REPORT ---
EXAMINATION: ONE VIEW CHEST XR CLINICAL INDICATION: SWELLING TECHNIQUE: Frontal chest projection is submitted. Examination is limited by patient positioning and t echnique. COMPARISON: 06/21/2025 FINDINGS: Moderate ill-defined opacities seen in the left base likely developing pneumonia. The heart is upper limit of normal in size. No displaced fractures identified. IMPRESSION: Moderate developing pneumonia left base.
[2025-06-26 13:21] LABS: Alkaline Phosphatase 96 U/L (45-117); Anion Gap 6.5 mEq/L (5.0-15.0); BUN Blood Urea Nitrogen 14 mg/dL (7-18); Glucose Level 96 mg/dL (74-106); NT PRO-BNP 800 pg/mL (<125); Thyroid Stimulating Hormone 3.730 uIU/mL (0.358-3.740); Troponin High Sensitivity 8.5 pg/mL (<58.9)
[2025-06-26 13:25] LABS: ALT/SGPT < 14 U/L (16-61); AST/SGOT 18 U/L (15-37); Albumin < 0.9 g/dL (3.4-5.0); Albumin/Globulin Ratio ND (1.1-1.8); Bilirubin Indirect, Calculated 0.0 mg/dL (0.2-0.8); Globulin 3.8 g/dL (2.3-3.5); Potassium 4.5 mEq/L (3.5-5.1)
--- NOTE | 2025-06-26 13:43 | EDPHYS ---
Physician Documentation [facility] Name: Yohanens Velazquez Age: 64 yrs Sex: Male : 1960 Arrival Date: 06/26/2025 Time: 11:08 Bed 6 Private MD: ED Physician Tristan Mohan HPI: 06/26 11:39 This 64 yrs old Male presents to ER via EMS with complaints of Edema. rn 11:39 Patient reports diffuse swelling, reports swelling in legs, arms, torso and face. Has rn been going on for a week or 2. Denies alcohol or drug use. No trauma. Seen here and discharged without clear etiology. Reports still urinating normally. No known liver problems or heart problems.. Historical: - Allergies: 11:15 No Known Allergies; iw - Home Meds: 11:15 None [Active]; iw - PSHx: 11:15 Appendectomy; Cholecystectomy; laminectomy; iw - Immunization history:: Adult Immunizations not up to date. - Infectious Disease History:: Denies. - Family history:: not pertinent. - Hospitalizations: : No recent hospitalization is reported. - Social history:: Smoking status: Patient reports the use of cigarette tobacco products, cigars. ROS: 11:39 Constitutional: Negative for fever, chills, and weight loss, Eyes: Negative for injury, rn pain, redness, and discharge, Neck: Negative for injury, pain, and swelling, Cardiovascular: Negative for chest pain, palpitations, positive for edema Respiratory: Negative for shortness of breath, cough, wheezing, and pleuritic chest pain, Abdomen/GI: Negative for abdominal pain, nausea, vomiting, diarrhea, and constipation, MS/Extremity: Negative for injury and deformity, Skin: Negative for injury, rash, and discoloration, Neuro: Negative for headache, weakness, numbness, tingling, and seizure, Exam: 11:39 Constitutional: This is a well developed, well nourished patient who is awake, alert, rn and in no acute distress. Head/Face: Edematous face ENT: No intraoral swelling. No stridor Cardiovascular: Regular rate and rhythm. No pulse deficits. Respiratory: No increased work of breathing, no retractions or nasal flaring. Abdomen/GI: Soft, non-tender MS/ Extremity: Pulses equal, no cyanosis. Neurovascular intact. Full, normal range of motion. Equal circumference. 3+ pitting edema lower extremities and upper extremities. Neuro: Awake and alert, GCS 15, oriented to person, place, time, and situation. Cranial nerves II-XII grossly intact. Motor strength 5/5 in all extremities. Sensory grossly intact. Cerebellar exam normal. Normal gait. 11:47 ECG was reviewed by the Attending Physician. rn Vital Signs: 11:13 BP 185 / 100; Pulse 68; Resp 20; Pulse Ox 97% on R/A; iw 12:50 BP 186 / 98; Pulse 64; Resp 19; Pulse Ox 98% on R/A; iw 13:49 BP 162 / 96; Pulse 69; Resp 19; Temp 97.8(O); Pulse Ox 98% on R/A; iw 15:25 BP 173 / 95; Pulse 68; Resp 19; Pulse Ox 98% on R/A; iw MDM: 11:11 Medical Screening Exam initiated rn 13:40 Differential Diagnosis Anasarca, CHF, pneumonia. Data reviewed: vital signs, nurses rn notes, lab test result(s), EKG, radiologic studies, plain films, and as a result, I will admit patient. Consideration of Admission/Observation Patient was admitted/placed on observation. Escalation of care including admission/observation considered. Independent interpretation of the following test(s) in the Emergency Department EKG: See my EKG interpretation above X-Ray: My interpretation is Chest x-ray images show possible pneumonia but negative for pneumothorax per my interpretation. 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 Care significantly affected by the following chronic conditions: Hypertension. Counseling: I had a detailed discussion with the patient and/or guardian regarding the historical points, exam findings, and any diagnostic results supporting the discharge/admit diagnosis, the presence of at least one elevated blood pressure reading (>120/80) during this emergency department visit, lab results, radiology results, the need for further work-up and treatment in the hospital. Response to treatment: There is no appreciated change of the patient's symptoms at this time. ED course: Patient with anasarca, worsening symptoms since last visit 5 days ago. Chest x-ray also shows possible pneumonia. Will admit to hospitalist service for further care and IV antibiotics.. 06/26 11:12 Order name: Basic Metabolic Panel; Complete Time: 13:34 rn 06/26 11:12 Order name: CBC with Diff; Complete Time: 12:55 rn 06/26 11:12 Order name: LFT's; Complete Time: 13:34 rn 06/26 11:12 Order name: NT PRO-BNP; Complete Time: 13:34 rn 06/26 11:12 Order name: Troponin HS; Complete Time: 13:34 rn 06/26 11:12 Order name: TSH; Complete Time: 13:34 rn 06/26 11:12 Order name: T4 Free; Complete Time: 13:34 rn 06/26 11:18 Order name: UA Rfx Lonny Cult if indicated rn 06/26 13:08 Order name: Blood Culture Adult (2) rn 06/26 13:08 Order name: Lactate w/ 2H reflex if indic.; Complete Time: 14:45 rn 06/26 14:30 Order name: CBC with Automated Diff [facility] 06/26 14:31 Order name: CBC with Automated Diff [facility] 06/26 14:31 Order name: Comprehensive Metabolic Panel [facility] 06/26 14:31 Order name: Comprehensive Metabolic Panel [facility] 06/26 14:31 Order name: Lactate w/ 2H reflex if indic. [facility] 06/26 14:31 Order name: Lactate w/ 2H reflex if indic. [facility] 06/26 14:31 Order name: Lipid Profile [facility] 06/26 14:31 Order name: Lipid Profile [facility] 06/26 14:31 Order name: NT PRO-BNP [facility] 06/26 14:31 Order name: NT PRO-BNP [facility] 06/26 14:31 Order name: Troponin High Sensitivity [facility] 06/26 14:31 Order name: Troponin High Sensitivity [facility] 06/26 11:12 Order name: XRAY Chest (1 view); Complete Time: 13:07 rn 06/26 11:12 Order name: Cardiac monitoring; Complete Time: 11:35 rn 06/26 11:12 Order name: EKG - Nurse/Tech; Complete Time: 11:52 rn 06/26 11:12 Order name: IV Saline Lock; Complete Time: 12:35 rn 06/26 11:12 Order name: Labs collected and sent; Complete Time: 11:52 rn 06/26 11:12 Order name: O2 Per Protocol; Complete Time: 11:35 rn 06/26 11:12 Order name: O2 Sat Monitoring; Complete Time: 11:36 rn 06/26 12:03 Order name: Misc. Order: light green and purple top for recollect; Complete Time: 12:35 sp EC:47 Rate is 66 beats/min. Rhythm is regular. QRS Topmost is Normal. OR interval is normal. QRS rn interval is normal. QT interval is normal. No Q waves. T waves are Normal. No ST changes noted. Clinical impression: NSR w/ Non-specific ST/T Changes. Interpreted by me. Reviewed by me. Administered Medications: 14:00 Drug: Rocephin IV 1 grams IV at calculated rate once; Given slow IV push per pharmacy iw instructions {Note: right shoulder.} Route: IV; Rate: calculated rate; Site: Other; 14:05 Follow up: IV Status: Completed infusion iw 14:06 Drug: Zithromax IVPB 500 mg IVPB once over 1 hrs; mix in 250 mL NS {Note: right iw shoulder.} Route: IVPB; Infused Over: 1 hrs; Site: Other; 15:06 Follow up: IV Status: Completed infusion iw Disposition Summary: 06/26/25 13:42 Hospitalization Ordered Notes: Hospitalization Status: Inpatient Admission rn Provider: Robel Meng rn [facility] rn Condition: Stable rn Problem: an ongoing problem rn Symptoms: are unchanged rn Bed/Room Type: Standard rn Room Assignment: 430(06/26/25 14:32) sp Diagnosis - Pneumonia, unspecified organism rn - Joao rn Forms: - Medication Reconciliation Form rn - SBAR form rn - Leadership Thank You Letter rn Signatures: Dispatcher [employer] EDMS Mita Eason Irene, RN RN iw Tristan Mohan MD MD 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 EDMS EDMS 11:13 11:13 CBC+H.LAB.BRZ ordered. EDMS EDMS 11:13 11:13 HEPATIC FUNCTION+C.LAB.BRZ ordered. EDMS EDMS 11:13 11:13 PROBNP+C.LAB.BRZ ordered. EDMS EDMS 11:13 11:13 Troponin High Sensitivity+C.LAB.BRZ ordered. EDMS EDMS 11: 11:13 THYROID STIMULAT HORMONE+C.LAB.BRZ ordered. EDMS EDMS : 11:13 T4 FREE+C.LAB.BRZ ordered. EDMS EDMS : 11:13 Chest Single View+RAD.RAD.BRZ ordered. EDMS EDMS 14:32 13:42 rn sp
--- NOTE | 2025-06-26 13:43 | ER ---
Nurse's Notes [facility] Name: Yohannes Velazquez Age: 64 yrs Sex: Male : 1960 Arrival Date: 06/26/2025 Time: 11:08 Bed 6 Private MD: Diagnosis: Pneumonia, unspecified organism;Anasarca Presentation: 06/26 11:13 Chief complaint: Patient states: was seen here earlier this week for swelling all over, iw it came back, swelling to all four extremities and face. Coronavirus screen: At this time, the client does not indicate any symptoms associated with coronavirus-19. Ebola Screen: No symptoms or risks identified at this time. Initial Sepsis Screen: Does the patient meet any 2 criteria? No. Patient's initial sepsis screen is negative. Does the patient have a suspected source of infection? No. Patient's initial sepsis screen is negative. Risk Assessment: Do you want to hurt yourself or someone else? Patient reports no desire to harm self or others. 11:13 Method Of Arrival: EMS: [facility] iw 11:13 Acuity: BREA 3 iw Triage Assessment: 11:15 General: Appears in no apparent distress. Behavior is calm, cooperative. Pain: Denies iw pain. Historical: - Allergies: 11:15 No Known Allergies; iw - Home Meds: 11:15 None [Active]; iw - PSHx: 11:15 Appendectomy; Cholecystectomy; laminectomy; iw - Immunization history:: Adult Immunizations not up to date. - Infectious Disease History:: Denies. - Family history:: not pertinent. - Hospitalizations: : No recent hospitalization is reported. - Social history:: Smoking status: Patient reports the use of cigarette tobacco products, cigars. Screenin:20 [facility] ED Fall Risk Assessment (Adult) History of falling in the last 3 months, iw including since admission No falls in past 3 months (0 pts) Confusion or Disorientation No (0 pts) Intoxicated or Sedated No (0 pts) Impaired Gait No (0 pts) Mobility Assist Device Used No (0 pt) Altered Elimination Yes (1 pt) Score/Fall Risk Level 0 - 2 = Low Risk Oriented to surroundings, Maintained a safe environment. Abuse screen: Denies threats or abuse. Nutritional screening: No deficits noted. Tuberculosis screening: No symptoms or risk factors identified. Assessment: 11:18 General: Appears in no apparent distress. Behavior is calm, appropriate for age. Pain: iw Denies pain. Neuro: Level of Consciousness is awake, alert, obeys commands, Oriented to person, place, time, situation, Moves all extremities. Cardiovascular: Denies chest pain, shortness of breath, Capillary refill < 3 seconds Edema is 4+ to right hand and left wrist pitting to right forearm, right wrist, right hand, left forearm, left wrist and left hand Rhythm is sinus rhythm. Cardiovascular: Edema to face. Respiratory: Respiratory effort is even, unlabored, Respiratory pattern is regular, symmetrical. GI: Abdomen is non-distended, Derm: Skin is intact. 11:29 Reassessment: pt refuses to allow another IV stick at this time. iw 12:50 Reassessment: Patient appears in no apparent distress at this time. Patient and/or iw family updated on plan of care and expected duration. Pain level reassessed. Patient is alert, oriented x 3, equal unlabored respirations, skin warm/dry/pink. pt sitting up eating a sandwich. Vital Signs: 11:13 BP 185 / 100; Pulse 68; Resp 20; Pulse Ox 97% on R/A; iw 12:50 BP 186 / 98; Pulse 64; Resp 19; Pulse Ox 98% on R/A; iw 13:49 BP 162 / 96; Pulse 69; Resp 19; Temp 97.8(O); Pulse Ox 98% on R/A; iw 15:25 BP 173 / 95; Pulse 68; Resp 19; Pulse Ox 98% on R/A; iw ED Course: 11:11 Patient arrived in ED. jl7 11:11 Tristan Mohan MD is Attending Physician. rn 11:13 Estella Ponce, RN is Primary Nurse. iw 11:15 Triage completed. iw 11:16 Arm band placed on. iw 11:20 No provider procedures requiring assistance completed. iw 11:29 Missed attempt(s): 20 gauge in right in left antecubital area. Bleeding controlled, nh2 band aid applied, catheter tip intact. 11:50 Initial lab(s) drawn, by me, sent to lab. aa5 11:50 Missed attempt(s): 22 gauge in left antecubital area. Bleeding controlled, band aid aa5 applied, catheter tip intact. 12:35 Lab(s) recollected, by laboratory inspector, sent to lab. Inserted saline lock: 22 gauge in right ts3 upper arm, using aseptic technique. Blood collected. Flushed with 10 mL NS. 13:02 XRAY Chest (1 view) In Process Unspecified. EDMS 13:42 Robel Meng MD is Hospitalizing Provider. rn 13:54 Patient has correct armband on for positive identification. Client placed on continuous iw cardiac and pulse oximetry monitoring. NIBP monitoring applied. case monitor on. 15:26 Patient admitted, IV remains in place. iw Administered Medications: 14:00 Drug: Rocephin IV 1 grams IV at calculated rate once; Given slow IV push per pharmacy iw instructions {Note: right shoulder.} Route: IV; Rate: calculated rate; Site: Other; 14:05 Follow up: IV Status: Completed infusion iw 14:06 Drug: Zithromax IVPB 500 mg IVPB once over 1 hrs; mix in 250 mL NS {Note: right iw shoulder.} Route: IVPB; Infused Over: 1 hrs; Site: Other; 15:06 Follow up: IV Status: Completed infusion iw Medication: 11:20 VIS not applicable for this client. iw Outcome: 13:42 Decision to Hospitalize by Provider. rn 15:26 Admitted to Med/surg via wheelchair, room 430, with chart, iw 15:26 Condition: good 15:26 Discharge instructions given to patient, Instructed on the need for admit, Demonstrated understanding of instructions, 15:27 Patient left the ED. iw Signatures: Dispatcher [employer] EDMS Estella Ponce RN RN Tristan Mohan MD MD rn Calderon, Audri RN RN aa5 Genaro Jaramillo RN RN jl7 Jhonathan Trinh Jr, RN RN nh2 Anastasiya Tran ts3 Corrections: (The following items were deleted from the chart) 12:36 12:35 Inserted saline lock: 22 gauge 24 gauge upper arm, using aseptic technique. Blood ts3 collected. Flushed with 10 mL NS ts3 12:36 12:35 Initial lab(s) drawn, by laboratory inspector, sent to lab. ts3 ts3 13:53 13:49 BP 162 / 96; Pulse 69bpm; Resp 19bpm; Pulse Ox 98% RA; iw iw
[2025-06-26] MEDS ORDERED: AZITHROMYCIN 500 MG INJ IVPB ONE (13:56)
[2025-06-26] MEDS ORDERED: CEFTRIAXONE 1000 MG/VIAL ONE (13:56)
[2025-06-26] MEDS ORDERED: NA CHLORIDE 0.9% 250 ML ONE (13:57)
[2025-06-26] MEDS ORDERED: ONDANSETRON 4 MG/2 ML VIAL IV PRN (14:25)
--- NOTE | 2025-06-26 14:30 | P.HP ---
Certification for Inpatient Patient admitted to: Observation With expected LOS: <2 Midnights Patient will require the following post-hospital care: None Practitioner: I am a practitioner with admitting privileges, knowledge of patient current condition, hospital course, and medical plan of care. Services: Services provided to patient in accordance with Admission requirements found in Title 42 Section 412.3 of the Code of Federal Regulations Patient History Date of Service: 06/26/25 Reason for admission: Shortness of breath History of Present Illness: patient is a 64-year-old gentleman here to the hospital with shortness of breath. Patient is homeless and has been not take care of himself properly. Patient has been coughing and congested and patient came into the emergency room for further evaluation. In the ER patient had a chest x-ray which showed a questionable pneumonia. Patient's white count was within normal limits and lactic acid were within normal limits. Patient's clinically looks to be weak and disheveled so will admitted to the hospital for further workup. Continue on IV fluids and IV antibiotics and monitor respiratory status closely. Allergies No Known Allergies Allergy (Unverified 06/26/25 15:42) Home Medications: NK [No Home Meds] 06/26/25 - Past Medical/Surgical History Past Medical History: Patient denies medical history Past Surgical History: Patient denies surgical history - Family History Father Family History: Reviewed- Non-Contributory - Social History Smoking Status: Former smoker Alcohol use: No CD- Drugs: No Review of Systems 10-point ROS is otherwise unremarkable Physical Examination - Vital Signs Temperature: 99.9 F Blood Pressure: 120/70 Pulse: 80 Respirations: 18 Pulse Ox (%): 95 - Physical Exam General: Alert, In no apparent distress, Oriented x3 HEENT: Atraumatic, PERRLA, Mucous membr. moist/pink, EOMI, Sclerae nonicteric Neck: Supple, 2+ carotid pulse no bruit, No LAD, Without JVD or thyroid abnormality Respiratory: Expiratory wheezes Cardiovascular: Regular rate/rhythm, Normal S1 S2, No murmurs Gastrointestinal: Normal bowel sounds, Soft and benign, Non-distended, No tenderness Musculoskeletal: No clubbing, No swelling, No tenderness Neurological: Normal gait, Normal speech, Normal strength at 5/5 x4 extr, Normal tone, Sensation intact, Cranial nerves 3-12 intact, Normal affect Lymphatics: No axilla or inguinal lymphadenopathy - Studies Laboratory Data (last 24 hrs) 06/26/25 06/26/25 12:33 12:33 WBC 6.50 Hgb 12.3 L Hct 36.3 L Plt Count 415 H Sodium 140 Potassium 4.5 BUN 14 Creatinine 0.72 Glucose 96 Total Bilirubin 0.2 AST 18 ALT < 14 L Alkaline Phosphatase 96 Assessment & Plan - Problems (Diagnosis) (1) Community acquired pneumonia Current Visit: Yes Status: Acute - Plan 1. Continue with IV antibiotics 2. Awaiting sputum and blood culture 3. Repeat chest x-ray 4. Will proceed with CT scan of the chest if pneumonia is not improved to evaluate for postobstructive pneumonia 5. Respiratory isolation is not needed 6. Continue with nebs as needed 7. O2 per protocol 8. Continue with gentle hydration 9. Repeat labs including CBC and renal function in a.m. 10. GI and DVT prophylaxis Discharge Plan: Home Plan to discharge in: 48 Hours - Advance Directives Does patient have a Living Will: No Does patient have a Durable POA for Healthcare: No - Code Status/Comfort Care Code Status Assessed: Yes Code Status: Full Code Critical Care: No Time Spent Managing PTS Care (In Minutes): 45
--- NOTE | 2025-06-26 14:31 | P.HP ---
Certification for Inpatient Patient admitted to: Inpatient With expected LOS: >2 Midnights Practitioner: I am a practitioner with admitting privileges, knowledge of patient current condition, hospital course, and medical plan of care. Services: Services provided to patient in accordance with Admission requirements found in Title 42 Section 412.3 of the Code of Federal Regulations Patient History Date of Service: 06/26/25 Reason for admission: Left-sided pneumonia History of Present Illness: Yohannes Velazquez is a 64-year-old male with no significant past medical history who presents to the ED with chief complaint of edema. Patient reports diffuse swelling in legs arms torso and face that has been going on for 2 weeks. - Past Medical/Surgical History Past Medical History: Patient denies medical history -: Appendectomy -: Cholecystectomy -: Laminectomy - Social History Smoking Status: Never smoker Alcohol use: No CD- Drugs: No Physical Examination - Studies Laboratory Data (last 24 hrs) 06/26/25 06/26/25 12:33 12:33 WBC 6.50 Hgb 12.3 L Hct 36.3 L Plt Count 415 H Sodium 140 Potassium 4.5 BUN 14 Creatinine 0.72 Glucose 96 Total Bilirubin 0.2 AST 18 ALT < 14 L Alkaline Phosphatase 96 Assessment and Plan - Advance Directives Does patient have a Living Will: No Does patient have a Durable POA for Healthcare: No
[2025-06-26] MEDS: METHYLPREDNISOLONE 40 MG INJ IV SCH (16:08)
[2025-06-26] MEDS: Levofloxacin 750mg IV 750 MG/150 ML BAG IV SCH (16:08)
[2025-06-26] MEDS: IPRATROPIUM BROM 0.5MG/2.5ML NEB PRN (16:25)
[2025-06-26] MEDS: ALBUTEROL 2.5 MG/3 ML NEB SOL NEB PRN (16:25)
[2025-06-26] MEDS: AMLODIPINE 5 MG TAB PO ONE (20:12)
[2025-06-27] MEDS: ENOXAPARIN 40 MG/0.4 ML SQ SCH (07:19)
--- NOTE | 2025-06-28 03:52 | P.PN ---
Date of Service: 06/27/25 Subjective Patient states his breathing is a little bit better. Clinical symptoms are improved. Vital signs are stable. Despite discharge in the morning. Physical Examination - Vital Signs Reviewed - Physical Exam General: Alert, In no apparent distress, Oriented x3 Respiratory: Expiratory wheezes Cardiovascular: Regular rate/rhythm, Normal S1 S2, No murmurs Gastrointestinal: Normal bowel sounds, Soft and benign, Non-distended, No tenderness Musculoskeletal: No clubbing, No swelling, No tenderness Neurological: No focal deficits Assessment & Plan - Problems (Diagnosis) (1) Community acquired pneumonia Current Visit: Yes Status: Acute - Plan 1. Continue with IV antibiotics 2. Awaiting sputum and blood culture 3. Repeat chest x-ray 4. Will proceed with CT scan of the chest if pneumonia is not improved to evaluate for postobstructive pneumonia 5. Respiratory isolation is not needed 6. Continue with nebs as needed 7. O2 per protocol 8. Continue with gentle hydration 9. Repeat labs including CBC and renal function in a.m. 10. GI and DVT prophylaxis Discharge Plan: Home Plan to discharge in: 48 Hours - Advance Directives Does patient have a Living Will: No Does patient have a Durable POA for Healthcare: No - Code Status/Comfort Care Code Status Assessed: Yes Code Status: Full Code Critical Care: No Time Spent Managing PTS Care (In Minutes): 30
[2025-06-28 05:13] LABS: Absolute Lymphocytes (CBC) 0.5 K/uL (0.7-4.9); Hematocrit 37.2 % (39.6-49.0); Hemoglobin 12.8 g/dL (13.6-17.9); MCH 31.4 pg (27.0-35.0); MCHC 34.4 g/dL (32.0-36.0); MCV 91.4 fL (80-100); MPV 7.6 fL (7.6-11.3); Nucleated RBC Absolute Count 0.0 (0-0); Nucleated Red Blood Cells % 0.0 % (0-0); RBC Red Blood Cell Count 4.08 M/uL (4.33-5.43); White Blood Count 15.10 thou/uL (4.3-10.9)
[2025-06-28 05:44] LABS: AST/SGOT 15 U/L (15-37); Albumin 0.9 g/dL (3.4-5.0); Albumin/Globulin Ratio ND (1.1-1.8); Alkaline Phosphatase 105 U/L (45-117); Anion Gap 8.6 mEq/L (5.0-15.0); BUN Blood Urea Nitrogen 32 mg/dL (7-18); Globulin 3.6 g/dL (2.3-3.5); Glucose Level 167 mg/dL (74-106); HDL Cholesterol 82 mg/dL (40-60); LDL Cholesterol, Calculated 202 mg/dL (<130); LDL Cholesterol,Calc NonReport 202; NT PRO-BNP 429 pg/mL (<125); Potassium 4.6 mEq/L (3.5-5.1); Troponin High Sensitivity 9.2 pg/mL (<58.9)
[2025-06-28 05:51] LABS: ALT/SGPT < 14 U/L (16-61)
[2025-06-28 08:49] LABS: Blood Morphology Comment NOT SEEN (NOT SEEN); Differential Total Cells Count 100; Segmented Neutrophils 95 % (40-80)
--- NOTE | 2025-06-28 12:14 | P.PN ---
Date of Service: 06/28/25 Subjective: States he does not feel continues to endorse difficulty breathing. Furthermore he states he is homeless. We discussed ambulating and taking in enough nutrition. He is voiding and having regular bowel movements. Physical Examination - Vital Signs Reviewed - Physical Exam General: Alert, In no apparent distress, Oriented x3 Respiratory: Expiratory wheezes Cardiovascular: Regular rate/rhythm, Normal S1 S2, No murmurs Gastrointestinal: Normal bowel sounds, Soft and benign, Non-distended, No tenderness Musculoskeletal: No clubbing, No swelling, No tenderness Neurological: No focal deficits Assessment & Plan - Problems (Diagnosis) (1) Community acquired pneumonia Current Visit: Yes Status: Acute - Plan 06/28 - Continue Levaquin -CT chest pending - Repeat labs in the a.m. - Trend lactic acid - Start Lipitor for elevated cholesterol 1. Continue with IV antibiotics 2. Awaiting sputum and blood culture 3. Repeat chest x-ray 4. Will proceed with CT scan of the chest if pneumonia is not improved to evaluate for postobstructive pneumonia 5. Respiratory isolation is not needed 6. Continue with nebs as needed 7. O2 per protocol 8. Continue with gentle hydration 9. Repeat labs including CBC and renal function in a.m. 10. GI and DVT prophylaxis Discharge Plan: Home Plan to discharge in: 48 Hours - Advance Directives Does patient have a Living Will: No Does patient have a Durable POA for Healthcare: No - Code Status/Comfort Care Code Status Assessed: Yes Code Status: Full Code Critical Care: No Total encounter time was 35 minutes of which more than 50% was spent in counseling and coordinating care. Time spent included chart review, [id number], evaluation and documentation
[2025-06-28] MEDS: NA CHLORIDE 0.9% 500 ML IV ONE (12:15)
--- NOTE | 2025-06-28 12:51 | RAD REPORT ---
Thorax W/ Con CLINICAL INDICATION: Male, 64 years old. rule out post obstructive pneumonia TECHNIQUE: Routine CT scan of the chest with intravenous contrast. One or more of the following dose reduction techniques were used: Automated exposure control, adjustment of the mA and/or kV according to patient size, and/or iterative reconstruction. Unless otherwise specified, incidental fi ndings do not require dedicated imaging follow-up. [id number]. COMPARISON: Chest radiograph 06/26/2025 FINDINGS: LOWER NECK: Visualized thyroid gland and soft tissues are normal. MEDIASTINUM AND LYMPH NODES: Prominent mediastinal and hilar lymph nodes which are likely reactive. M ild distal esophageal thickening. THORACIC AORTA: No thoracic aortic aneurysm. Dilated aortic root as well as the sinuses Valsalva saqib uring 4.1 cm. PULMONARY ARTERIES: Caliber is within normal limits. Unable to evaluate for pulmonary emboli due to e ither protocol or lack of contrast. HEART: Normal heart size. No coronary calcifications.No significant pericardial effusion. LUNGS AND AIRWAYS: Motion limited. No edema or consolidation. Small noncalcified pulmonary nodule in the right lower lobe measuring 10 x 4 mm has a benign morphology. Calcified right lower lobe nodule.. Motion artifact limits evaluation for pulmonary nodule detection. PLEURA: No pleural effusions. No pneumothorax. OSSEOUS STRUCTURES AND CHEST WALL: Chest wall subcutaneous edema. Skin thickening at the left chest w all. No fracture. UPPER ABDOMEN: Upper abdominal ascites. Cholecystectomy. IMPRESSION: Small left pleural effusion, upper abdominal ascites, and chest wall edema consistent with anasarca. There is likely some associated atelectasis as a result of the left pleural effusion but no evidence of overt pulmonary edema or pneumonia.
[2025-06-28] MEDS: HYDRALAZINE HCL 20 MG/ML VIAL IV PRN (12:55)
[2025-06-28 17:44] VITALS: BMI 31.4
[2025-06-29] MEDS: FUROSEMIDE 40 MG/4 ML VIAL IV ONE (10:03)
[2025-06-29 10:35] LABS: Absolute Lymphocytes (CBC) 0.6 K/uL (0.7-4.9); Hematocrit 39.1 % (39.6-49.0); Hemoglobin 13.1 g/dL (13.6-17.9); MCH 30.8 pg (27.0-35.0); MCHC 33.3 g/dL (32.0-36.0); MCV 92.4 fL (80-100); MPV 6.9 fL (7.6-11.3); Nucleated RBC Absolute Count 0.0 (0-0); Nucleated Red Blood Cells % 0.1 % (0-0); RBC Red Blood Cell Count 4.24 M/uL (4.33-5.43); White Blood Count 15.30 thou/uL (4.3-10.9)
[2025-06-29 10:56] LABS: ALT/SGPT 15 U/L (16-61); AST/SGOT 16 U/L (15-37); Albumin 1.0 g/dL (3.4-5.0); Albumin/Globulin Ratio 0.3 (1.1-1.8); Alkaline Phosphatase 90 U/L (45-117); Anion Gap 8.3 mEq/L (5.0-15.0); BUN Blood Urea Nitrogen 32 mg/dL (7-18); Globulin 3.7 g/dL (2.3-3.5); Glucose Level 174 mg/dL (74-106); Potassium 4.3 mEq/L (3.5-5.1)
--- NOTE | 2025-06-29 13:25 | P.PN ---
Date of Service: 06/29/25 Subjective: States he does not feel continues to endorse difficulty breathing. Furthermore he states he is homeless. We discussed ambulating and taking in enough nutrition. He is voiding and having regular bowel movements. Physical Examination - Vital Signs Reviewed - Physical Exam General: Alert, In no apparent distress, Oriented x3 Respiratory: Expiratory wheezes Cardiovascular: Regular rate/rhythm, Normal S1 S2, No murmurs Gastrointestinal: Normal bowel sounds, Soft and benign, Non-distended, No tenderness Musculoskeletal: No clubbing, No swelling, No tenderness Neurological: No focal deficits Assessment & Plan Community-acquired pneumonia 06/29 -CT with small left pleural effusion, upper abdominal ascites, chest wall edema - Start Lasix daily - Leukocytosis likely secondary to steroids - Home in the a.m. - Lactic acidosis resolved 06/28 - Continue Levaquin -CT chest pending - Repeat labs in the a.m. - Trend lactic acid - Start Lipitor for elevated cholesterol 1. Continue with IV antibiotics 2. Awaiting sputum and blood culture 3. Repeat chest x-ray 4. Will proceed with CT scan of the chest if pneumonia is not improved to evaluate for postobstructive pneumonia 5. Respiratory isolation is not needed 6. Continue with nebs as needed 7. O2 per protocol 8. Continue with gentle hydration 9. Repeat labs including CBC and renal function in a.m. DVT prophylaxis with Lovenox Discharge Plan: Home Plan to discharge in: Tomorrow morning - Advance Directives Does patient have a Living Will: No Does patient have a Durable POA for Healthcare: No - Code Status/Comfort Care Code Status Assessed: Yes Code Status: Full Code Critical Care: No Total encounter time was 45 minutes of which more than 50% was spent in counseling and coordinating care. Time spent included chart review, [id number], evaluation and documentation
[2025-06-30] MEDS: FUROSEMIDE 40 MG/4 ML VIAL IV SCH (08:30)
[2025-06-30 09:24] VITALS: O2SAT 95
[2025-06-30 10:27] LABS: Absolute Lymphocytes (CBC) 0.7 K/uL (0.7-4.9); Hematocrit 41.1 % (39.6-49.0); Hemoglobin 13.9 g/dL (13.6-17.9); MCH 31.1 pg (27.0-35.0); MCHC 33.8 g/dL (32.0-36.0); MCV 91.9 fL (80-100); MPV 7.0 fL (7.6-11.3); Nucleated RBC Absolute Count 0.0 (0-0); Nucleated Red Blood Cells % 0.0 % (0-0); RBC Red Blood Cell Count 4.47 M/uL (4.33-5.43); White Blood Count 15.10 thou/uL (4.3-10.9)
[2025-06-30 10:47] LABS: ALT/SGPT 24 U/L (16-61); AST/SGOT 32 U/L (15-37); Albumin 1.1 g/dL (3.4-5.0); Albumin/Globulin Ratio 0.3 (1.1-1.8); Alkaline Phosphatase 92 U/L (45-117); Anion Gap 8.2 mEq/L (5.0-15.0); BUN Blood Urea Nitrogen 32 mg/dL (7-18); Globulin 3.7 g/dL (2.3-3.5); Glucose Level 163 mg/dL (74-106); Potassium 4.2 mEq/L (3.5-5.1)
[2025-06-30] MEDS: ACETAMINOPHEN 500 MG TAB PO PRN (11:15)
[2025-06-30 12:13] VITALS: BP 155/89; TEMP 98
--- NOTE | 2025-06-30 14:56 | P.DS ---
Admission Date: 06/26/25 Discharge Date: 06/30/25 Disposition: ROUTINE DISCHARGE Discharge Condition: GOOD Reason for Admission: Shortness of breath Brief History of Present Illness: a 64-year-old gentleman here to the hospital with shortness of breath. Patient is homeless and has been not take care of himself properly. Patient has been coughing and congested and patient came into the emergency room for further evaluation. In the ER patient had a chest x-ray which showed a questionable pneumonia. Patient's white count was within normal limits and lactic acid were within normal limits. Patient's clinically looks to be weak and disheveled so will admitted to the hospital for further workup. Continue on IV fluids and IV antibiotics and monitor respiratory status closely. Upon admission he was started on IV antibiotics and steroids. Follow-up CT scan of the chest revealed global anasarca. Lasix was added on to his medication list. His clinical condition improved over the course of his stay. Remainder of his medical problems are chronic and stable. He is medically optimized for discharge. Hospital Course: Physical Examination - Vital Signs Reviewed - Physical Exam General: Alert, In no apparent distress, Oriented x3 Respiratory: Expiratory wheezes Cardiovascular: Regular rate/rhythm, Normal S1 S2, No murmurs Gastrointestinal: Normal bowel sounds, Soft and benign, Non-distended, No tenderness Musculoskeletal: No clubbing, No swelling, No tenderness Neurological: No focal deficits Assessment & Plan Community-acquired pneumonia 06/29 -CT with small left pleural effusion, upper abdominal ascites, chest wall edema - Start Lasix daily - Leukocytosis likely secondary to steroids - Home in the a.m. - Lactic acidosis resolved 06/28 - Continue Levaquin -CT chest pending - Repeat labs in the a.m. - Trend lactic acid - Start Lipitor for elevated cholesterol 1. Continue with IV antibiotics 2. Awaiting sputum and blood culture 3. Repeat chest x-ray 4. Will proceed with CT scan of the chest if pneumonia is not improved to evaluate for postobstructive pneumonia 5. Respiratory isolation is not needed 6. Continue with nebs as needed 7. O2 per protocol 8. Continue with gentle hydration 9. Repeat labs including CBC and renal function in a.m. DVT prophylaxis with Lovenox Discharge Plan: Home Plan to discharge in: Tomorrow morning - Advance Directives Does patient have a Living Will: No Does patient have a Durable POA for Healthcare: No - Code Status/Comfort Care Code Status Assessed: Yes Code Status: Full Code Critical Care: No Total encounter time was 45 minutes of which more than 50% was spent in counseling and coordinating care. Time spent included chart review, [id number], evaluation and documentation Vital Signs/Physical Exam: Temp Pulse Resp BP Pulse Ox 98.0 F 101 H 18 155/89 H 94 06/30/25 12:00 06/30/25 12:00 06/30/25 12:00 06/30/25 12:00 06/30/25 12:00 Laboratory Data at Discharge: WBC 15.10 thou/uL (4.3-10.9) H 06/30/25 10:08 Hgb 13.9 g/dL (13.6-17.9) 06/30/25 10:08 Hct 41.1 % (39.6-49.0) 06/30/25 10:08 Plt Count 660 thou/uL (152-406) H 06/30/25 10:08 Sodium 141 mEq/L (136-145) 06/30/25 10:08 Potassium 4.2 mEq/L (3.5-5.1) 06/30/25 10:08 BUN 32 mg/dL (7-18) H 06/30/25 10:08 Creatinine 1.09 mg/dL (0.70-1.30) 06/30/25 10:08 Glucose 163 mg/dL (74-106) H 06/30/25 10:08 Total Bilirubin < 0.2 mg/dL (0.2-1.0) L 06/30/25 10:08 AST 32 U/L (15-37) 06/30/25 10:08 ALT 24 U/L (16-61) 06/30/25 10:08 Alkaline Phosphatase 92 U/L (45-117) 06/30/25 10:08 Triglycerides 147 mg/dL (<150) 06/28/25 04:27 Cholesterol 313 mg/dL (<200) H 06/28/25 04:27 HDL Cholesterol 82 mg/dL (40-60) H 06/28/25 04:27 Cholesterol/HDL Ratio 3.82 06/28/25 04:27 Home Medications: Albuterol Inhaler [Ventolin Inhaler*] 2 puff IH Q6H PRN #1 inh 06/28/25 levoFLOXacin [Levaquin] 500 mg PO DAILY #7 tab 06/28/25 predniSONE [Deltasone] 20 mg PO BID #10 tab 06/28/25 New Medications: levoFLOXacin [Levaquin] 500 mg PO DAILY #7 tab predniSONE [Deltasone] 20 mg PO BID #10 tab Albuterol Inhaler [Ventolin Inhaler*] 2 puff IH Q6H PRN #1 inh PRN Reason: Shortness Of Breath Physician Discharge Instructions: OK TO DC IV AND DC HOME FOLLOW-UP WITH PRIMARY CARE PROVIDER IN 1-2 WEEKS FOLLOW-UP WITH Job Rec[employer]iter IN 1-2 WEEKS RETURN TO THE ER IF symptoms worsen CALL DR. FAGAN AT [phone] IF ANY QUESTIONS REGARDING HOSPITAL STAY. PLEASE CALL THE FLOOR AT [phone] IF ANY MEDICATION OR NURSING QUESTIONS. Diet: AHA Activity: Fall precautions Followup: Jonathan Napier MD [ACTIVE - CAN ADMIT] - NONE,NONE [Primary Care Provider] -
== END 2025-06-30 13:07 | disposition home or self-care (01) | DRG 871 ==
LOC: ER 11:08 → ERHOLD 14:25 → 4TH 14:51
PROVIDERS: ADMIT Hospitalist; ATTEND Family Medicine
DX: A41.9 Sepsis, unspecified organism (principal); J18.9 Pneumonia, unspecified organism; Z59.00 Homelessness unspecified; R18.8 Other ascites; F17.210 Nicotine dependence, cigarettes, uncomplicated; Z90.49 Acquired absence of other specified parts of digestive tract
CPT/HCPCS: 36415; 71045; 71260; 80048; 80053; 80061; 80076; 82947; 83605; 83880; 84145; 84439; 84443; 84484; 85025; 87040; 93005; 94010; 94640; 94668; 94760; 96365; 96375; 99285; G0238; J0360; J0456; J0696; J1650; J1938; J2919; J7040; J7050; J7613; J7644; Q9967

== ENCOUNTER 2025-07-02 08:40 | Emergency (ER) | payer OTHER ==
--- OUTSIDE RECORDS SUMMARY | 2025-07-02 08:46 | XMS REPORT | Continuity of Care Document ---
Author Name Unknown Address [address] [facility] [place] [address] [facility] Address [address] [facility] [address] [place] [address] Care Team Providers Care Integrated Marketing Intern Name Role Phone NO PHYSICIAN, . Primary [...] Treating Clinician Comments Source [facility] Dental [facility] Low back pain [facility]neumonia [facility] Viral infection [facility] Cocaine abuse [facility] Hypertensi on Problem [facility] Social History Social Habit Start Date Stop Date Quantity Comments Source History of tobacco use [facility] Smoking Status Start Date Stop Date Source Current some day smoker 2023-03-20 10:44:00 [facility] Medications Ordered Medication Name Filled Medication Name Start Date Stop Date Current Medication? Ordering Clinician Indication Dosage Frequency Signature (SIG) Comments Components Source Amlodipine Besylate (Norvasc *) 10 Mg TAB Amlodipine Besylate (Norvasc *) 10 Mg TAB 06-11 12:59: 00 Yes 1{tbl} [facility] Albuterol (Ventolin Hfa *) 90 Mcg/Act INH Albuterol (Ventolin Hfa *) 90 Mcg/Act INH 03-20 13:55: 00 Yes 2 [facility] Azithromyci n (Zithromax Z-Tan *) 250 Mg TAB Azithromyci n (Zithromax Z-Tan *) 250 Mg TAB 03-20 13:55: 00 Yes 1{tbl} [facility] Benzonatate (Tessalon *) 100 Mg CAP Benzonatate (Tessalon *) 100 Mg CAP 03-20 13:55: 00 Yes 1 [facility] Prednisone (Prednisone *) 20 Mg TAB Prednisone (Prednisone *) 20 Mg TAB 03-20 13:55: 00 Yes 2{tbl} [facility] Acetaminoph en W/ Codeine #3 * (Tylenol Codeine #3 300MG/30MG *) 1 Tab TAB Acetaminoph en W/ Codeine #3 * (Tylenol Codeine #3 300MG/30MG *) 1 Tab TAB 03-01 10:02: 30 Yes 1{tbl} [facility] Sertraline Hcl (Zoloft *) 50 Mg TAB Sertraline Hcl (Zoloft *) 50 Mg TAB 03-01 10:02: 30 Yes 50mg [facility] Trazodone Hcl (Desyrel 100 Mg*) 100 Mg TAB Trazodone Hcl (Desyrel 100 Mg*) 100 Mg TAB 03-01 10:02: 30 Yes 100mg [facility] Vital Signs Vital Name Observation Time Observation Value Comments S ource Height 2025-06-11 08:54:00 165.741736 cm [facility] Weight 2025-06-11 08:54:00 70.452576 kg [facility] BMI (Body Mass Index) 2025-06-11 08:54:00 25.8 kg/m2 [facility] Height 2025-06-10 19:00:00 167.726921 cm [facility] Weight 2025-06-10 19:00:00 70.995274 kg [facility] BMI (Body Mass Index) 2025-06-10 19:00:00 25.0 kg/m2 [facility] Encounters Start Date/Time End Date/Time Encounter Type Admission Type Attending [facility] Care Department Encounter ID Source 2025-06-11 08:43:00 2025-06-11 13:45:00 Emergency ER STEVIE GAMA [facility] [id number] [facility] 2025-06-11 08:43:00 2025-06-11 13:45:00 Departed Emergency Room [facility] [id number] [facility] 2025-06-10 19:01:00 2025-06-10 22:30:00 Emergency ER STEVIE GAMA [facility] [id number] [facility] 2025-06-10 19:01:00 2025-06-10 22:30:00 Departed Emergency Room [facility] [id number] [facility] 2023-03-20 10:34:00 2023-03-20 15:10:00 Emergency ER ART HALL [facility] [id number] [facility] 2019-08-02 15:47:00 2019-08-02 16:33:00 Emergency ER ULISES STEWART [facility] [id number] [facility] 2016-08-28 12:21:00 2016-08-28 12:21:00 Outpatient TJ CHUN [facility] [id number] [facility] 2016-07-31 12:06:00 2016-07-31 12:06:00 Outpatient TJ CHUN [facility] [id number] [facility] 2016-03-01 09:33:00 2016-03-01 09:33:00 Outpatient LAZARA GOVEA [facility] [id number] [facility] 2015-12-01 10:57:00 2015-12-01 10:57:00 Outpatient TJ CHUN [facility] [id number] [facility] Results Test Description Test Time Test Comments Results Result Co mments Source [facility] EdpIeccjwdwl2804-39-64 10:28:00* Test Item Value Reference Range Interpretation Comme nts Methadone Level (test code = KOY6953) NEGATIVE [facility] CtrBenzodiazepines screen uv0623-07-61 10:28:00* Test Item Value Reference Range Interpretation Comme [facility] Urine Benzodiazepines Screen (test code = 704500209) NEGATIVE [facility] CtrCannabinoids (8-vuhmltk-XFZ) yyqnzarrkrq0304-70-34 10:28:00* Test Item Value Reference Range Interpretation Comme [facility] Urine Cannabinoids (test cod e = 484458300) NEGATIVE [facility] CtrCocaine metabolite chlofv2926-75-83 10:28:00* Test Item Value Reference Range Interpretation Comme [facility] Urine Cocaine Metabolite (te st code = 884279607) POSITIVE [facility] CtrOpiates razlz3525-74-36 10:28:00* Test Item Value Reference Range Interpretation Comme [facility] Urine Opiates Screen (test c ode = 561074680) NEGATIVE [facility] CtrUrine hydrocodone measurement (mass/volume) 2025-06-11 10:28:00* Test Item Value Reference Range Interpretation Comme nts Hydrocodone Level (test code = 3681-4) NEGATIVE [facility] CtrUrine fentanyl measurement (mass/volume)2025-06-11 10:28:00* Test Item Value Reference Range Interpretation Comme [facility] Urine Fentanyl Screen (test code = 3637-6) NEGATIVE [facility] CtrPhencyclidine (PCP) xm8028-11-18 10:28:00* Test Item Value Reference Range Interpretation Comme nts Urine Phencyclidine (PCP) Le fuad (test code = 232969915) NEGATIVE [facility] CtrPropoxyphene [Mass/volume] in Fcyny9752-31-33 10:28:00* Test Item Value Reference Range Interpretation Comme nts Propoxyphene Level (test cod e = 3545-1) NEGATIVE [facility] CtroxyCODONE [Mass/volume] in Lyqhj4438-67-88 10:28:00* Test Item Value Reference Range Interpretation Comme nts Oxycodone Level (test code = 01504-7) NEGATIVE [facility] CtrSpecific gravity of Urine by Automated test strip 2025-06-11 10:26:00* Test Item Value Reference Range Interpretation Comme nts Urine Specific [place] (test code = 29386-9) 1.038 [facility] BhqEoyquv1173-69-64 10:23:00* Test Item Value Reference Range Interpretation Comme nts Lipase (test code = 879440944) 22 [facility] CtrRBC count ur fmzk1954-34-32 10:19:00* Test Item Value Reference Range Interpretation Comme nts Urine RBC (test code = 798-9) 21-50 [facility] CtrUrine examination for white blood cells (WBC) 2025-06-11 10:19:00* Test Item Value Reference Range Interpretation Comme nts Urine WBC (test code = 197407083) 3-5 [facility] CtrAutomated epithelial cells count in urine sediment (number/area)2025-06-11 10:19:00* Test Item Value Reference Range Interpretation Comme nts Urine Epithelial Cells (test code = 28816-0) 3-5 [facility] CtrBacteria detection in urine sediment by light gnelnsbaag5754-23-35 10:19:00* Test Item Value Reference Range Interpretation Comme nts Urine Bacteria (test code = 66347-9) None Seen [facility] CtrUrine casts detection by automated method 2025-06-11 10:19:00* Test Item Value Reference Range Interpretation Comme nts Urine Casts (test code = 23429-7) 11-20 [facility] CtrColor of Urine by Ioww7513-35-25 10:17:00* Test Item Value Reference Range Interpretation Comme nts Urine Color (test code = 87340-8) Yellow [facility] CtrAppearance of Ueiql6705-30-67 10:17:00* Test Item Value Reference Range Interpretation Comme nts Urine Appearance (test code = 5767-9) Clear [facility] CtrUrine glucose zhimcupdn8015-87-94 10:17:00* Test Item Value Reference Range Interpretation Comme nts Urine Glucose (UA) (test code = 2349-9) Trace [facility] CtrBilirubin qj3531-08-28 10:17:00* Test Item Value Reference Range Interpretation Comme nts Urine Bilirubin (test code = 038036825) Negative [facility] CtrKetones tp2002-30-05 10:17:00* Test Item Value Reference Range Interpretation Comme [facility] Urine Ketones (test code = 73497482) Negative [facility] CtrUrine blood irritzigy1701-80-04 10:17:00* Test Item Value Reference Range Interpretation Comme nts Urine Blood (test code = 999213-5) 1+ (SMALL) [facility] CtrpH px9259-16-69 10:17:00* Test Item Value Reference Range Interpretation Comme nts Urine pH (test code = 2756-5) 6.500 [facility] CtrProtein zj8523-54-66 10:17:00* Test Item Value Reference Range Interpretation Comme nts Urine Protein (test code = 48472701) 4+ [facility] CtrUrobilinogen, urine, er0841-23-24 10:17:00* Test Item Value Reference Range Interpretation Comme [facility] Urine Urobilinogen (test cod e = 403273009) 0.2 [facility] nitrate cdxxknvvs0045-36-77 10:17:00* Test Item Value Reference Range Interpretation Comme nts Urine Nitrate (test code = 91638-7) Negative [facility] Center[facility] leukocyte esterase tuyvuwczg3980-33-98 10:17:00* Test Item Value Reference Range Interpretation Comme nts Urine Leukocyte Esterase (te st code = 113580-2) Negative [facility] CtrAlcohol level, dkbsh1264-19-69 09:58:00* Test Item Value Reference Range Interpretation Comme nts Ethyl Alcohol Level (test co de = 452343439) < 10.0 [facility] CtrBlood hemoglobin A1C measurement (mass/volume) 2025-06-11 09:52:00* Test Item Value Reference Range Interpretation Comme [facility] Hemoglobin A1c (test code = 06582-7) 5.7 [facility] CtrNT-proBNP uufkdusoxoi3233-09-96 09:45:00* Test Item Value Reference Range Interpretation Comme [facility] XH-Shz-B-Type Natriuretic Pe ptide (test code = 533628101) 325 [facility] CtrSerum or plasma cardiac troponin I panel by high sensitivity gmkija1855-15-60 09:44:00* Test Item Value Reference Range Interpretation Comme [facility] Troponin T High Sensitivity (test code = 50867-6) 14.3 [facility] CtrBilirubin befqr5679-39-35 09:42:00* Test Item Value Reference Range Interpretation Comme [facility] Total Bilirubin (test code = ZMU3463) 0.2 [facility] CtrSerum or plasma urea nitrogen measurement (mass/volume)2025-06-11 09:42:00* Test Item Value Reference Range Interpretation Comme [facility] Blood Urea Nitrogen (test co de = 3094-0) 15 [facility] UsgIEA3090-64-71 09:42:00* Test Item Value Reference Range Interpretation Comme nts Aspartate Amino Transf (AST/ SGOT) (test code = DBF1360) 10 [facility] CtrCreatinine vsuoo0462-10-63 09:42:00* Test Item Value Reference Range Interpretation Comme nts Creatinine (test code = 849444588) 0.80 [facility] CtrEstimated glomerular filtration rate (GFR) vyebbgvdduylj1690-42-39 09:42:00* Test Item Value Reference Range Interpretation Comme [facility] Glomerular Filtration Rate C alc (test code = 220528268) > 60.00 [facility] CtrBUN/creatinine qgsyw6069-99-16 09:42:00* Test Item Value Reference Range Interpretation Comme nts BUN/Creatinine Ratio (test c ode = 90490604) 18.8 [facility] CtrBody fluid potassium vhtbfmzhsoa8687-47-91 09:42:00* Test Item Value Reference Range Interpretation Comme nts Potassium Level (test code = 2821-7) 4.0 [facility] CihFC96275-64-31 09:42:00* Test Item Value Reference Range Interpretation Comme nts Carbon Dioxide Level (test c ode = 35562845) 26 [facility] CtrAnion gap hfmgaehfifr3108-03-63 09:42:00* Test Item Value Reference Range Interpretation Comme nts Anion Gap (test code = 84350189) 12.0 [facility] CtrCalcium ofqtq8106-47-09 09:42:00* Test Item Value Reference Range Interpretation Comme nts Calcium Level (test code = 41736533) 8.2 [facility] RiaJfsfrgfzr4462-30-21 09:42:00* Test Item Value Reference Range Interpretation Comme nts Magnesium Level (test code = 80923176) 2.1 [facility] CtrGlobulin tzq9080-65-23 09:42:00* Test Item Value Reference Range Interpretation Comme nts Globulin (test code = 597424925) 3.1 [facility] CtrALT (SGPT) ser/gjfs2894-73-47 09:42:00* Test Item Value Reference Range Interpretation Comme nts Alanine Aminotransferase (AL T/SGPT) (test code = 1742-6) 6 [facility] CtrAmylase pfvto8346-39-71 09:42:00* Test Item Value Reference Range Interpretation Comme nts Amylase Level (test code = 1798-8) 43 [facility] CtrALP ser/qzyz7456-15-29 09:42:00* Test Item Value Reference Range Interpretation Comme nts Total Alkaline Phosphatase ( test code = 6768-6) 117 [facility] BdbRopnwnj5135-99-11 09:38:00* Test Item Value Reference Range Interpretation Comme nts Ammonia (test code = SVP4668) 16.1 [facility] CtrAbsolute eosinophil qrllq1234-93-61 09:21:00* Test Item Value Reference Range Interpretation Comme nts Eosinophils # (Auto) (test c ode = SML5505) 0.21 [facility] CtrRBC dtiwe6318-50-53 09:21:00* Test Item Value Reference Range Interpretation Comme [facility] Red Blood Count (test code = 29424014) 4.64 [facility] QepHxzokrjcue9164-88-15 09:21:00* Test Item Value Reference Range Interpretation Comme [facility] Hematocrit (test code = 25182072) 44.6 [facility] CtrMCV (mean corpuscular volume) determination 2025-06-11 09:21:00* Test Item Value Reference Range Interpretation Comme [facility] Mean Corpuscular Volume (rowan t code = 14953-9) 96.1 [facility] CtrMean corpuscular hemoglobin (MCH) determination 2025-06-11 09:21:00* Test Item Value Reference Range Interpretation Comme [facility] Mean Corpuscular Hemoglobin (test code = 78132554) 31.0 [facility] CenterMean corpuscular hemoglobin concentration (MCHC) xilmojxhdvcku8626-67-56 09:21:00* Test Item Value Reference Range Interpretation Comme [facility] Mean Corpuscular Hemoglobin Concent (test code = 42232356) 32.3 [facility] CtrRBC distribution width coefficient of variation 2025-06-11 09:21:00* Test Item Value Reference Range Interpretation Comme [facility] Red Cell Distribution Width (test code = 09033652) 11.9 [facility] CtrPlatelet oqmah3828-57-78 09:21:00* Test Item Value Reference Range Interpretation Comme [facility] Platelet Count (test code = 33421580) 342 [facility] CtrMean platelet qlfavy2604-42-07 09:21:00* Test Item Value Reference Range Interpretation Comme [facility] Mean Platelet Volume (test c ode = 08303133) 8.9 [facility] CtrNeutrophils seg % ypg9702-50-75 09:21:00* Test Item Value Reference Range Interpretation Comme [facility] Neutrophils (%) (Auto) (test code = 01746-5) 61.2 [facility] CtrAbsolute immature granulocyte gwxev4858-32-84 09:21:00* Test Item Value Reference Range Interpretation Comme nts Absolute Immature Granulocyt e (auto (test code = 38591-1) 0.01 [facility] CtrBasophil % lfosdt8257-21-18 09:21:00* Test Item Value Reference Range Interpretation Comme nts Basophils (%) (Auto) (test c ode = 94194-6) 0.5 [facility] CtrBlood band neutrophils count (number/volume) 2025-06-11 09:21:00* Test Item Value Reference Range Interpretation Comme nts Neutrophils # (Auto) (test c ode = 05990-6) 3.95 [facility] CtrAbsolute lymphocyte cyzfs7183-22-50 09:21:00* Test Item Value Reference Range Interpretation Comme nts Lymphocytes # (Auto) (test c ode = 57468-4) 1.83 [facility] CtrAbsolute basophil dvrjt3269-93-01 09:21:00* Test Item Value Reference Range Interpretation Comme nts Basophils # (Auto) (test cod e = 47148276) 0.03 [facility] CtrAbsolute NRBC fxryg8111-43-03 09:21:00* Test Item Value Reference Range Interpretation Comme nts Nucleated Red Blood Cells # (test code = 530870465) 0 [facility] CtrAdenovirus Ab [Presence] in Uusjsdtu4941-25-09 20:19:00* Test Item Value Reference Range Interpretation Comme [facility] Nasopharyngeal Adenovirus PC R (test code = 02861-7) Not detected [facility] Center[facility] coronavirus antigen detection by pqwwhiibmufvkdparw8014-71-30 20:19:00* Test Item Value Reference Range Interpretation Comme nts Nasopharyngeal Coronavirus 2 29E PCR (test code = 26904-6) Not detected [facility] CtrCoronavirus HKU1 RNA assay by EIR2558-75-15 20:19:00* Test Item Value Reference Range Interpretation Comme nts Nasopharyngeal Coronavirus H KU1 PCR (test code = 22302-8) Not detected [facility] CtrCoronavirus NL63 RNA assay by RJM4119-58-66 20:19:00* Test Item Value Reference Range Interpretation Comme nts Nasopharyngeal Coronavirus N L63 PCR (test code = 69043-9) Not detected [facility] coronavirus OC43 antigen detection by wfwiefbouhkmxbcstz2571-52-06 20:19:00* Test Item Value Reference Range Interpretation Comme nts Nasopharyngeal Coronavirus O C43 PCR (test code = 16592-1) Not detected [facility] CenterSARS coronavirus RNA [Presence] in Specimen by URIEL with probe qxuuiafxb0376-76-44 20:19:00* Test Item Value Reference Range Interpretation Comme nts Nasopharyngeal SARS-CoV-2 PC R (test code = 78079-2) Not detected [facility] CenterHuhouston metapneumovirus detection by OXD4184-11-63 20:19:00* Test Item Value Reference Range Interpretation Comme nts Nasophryn Human Metapneumovi amelia PCR (test code = 19939-7) Not detected [facility] CtrRespiratory specimen human rhinovirus 1 and 2 RNA detection by probe and target amplification llrtaf8489-57-45 20:19:00* Test Item Value Reference Range Interpretation Comme nts Nasopharyn Human Rhino/Enterovirus (test code = 787871-8) Not detected [facility] CtrInfluenza virus A Ag [Presence] in Specimen 2025-06-10 20:19:00* Test Item Value Reference Range Interpretation Comme [facility] Nasopharyngeal Influenza Typ e A PCR (test code = 33028-3) Not detected [facility] CtrInfluenza virus B Ab [Units/volume] in Specimen 2025-06-10 20:19:00* Test Item Value Reference Range Interpretation Comme [facility] Nasopharyngeal Influenza B ( PCR) (test code = 92498-4) Not detected [facility] CtrNasopharyngeal specimen parainfluenza virus type 1 RNA detection by probe and target amplification izjoas6294-18-82 20:19:00* Test Item Value Reference Range Interpretation Comme nts Nasopharyngeal Parainfluenza 1 PCR (test code = 64899-9) Not detected [facility] CtrParainfluenza virus 2 RNA [Presence] in Specimen by URIEL with probe yjoulnxhe7283-25-80 20:19:00* Test Item Value Reference Range Interpretation Comme nts Nasopharyngeal Parainfluenza 2 PCR (test code = 19188-4) Not detected [facility] CtrParainfluenza virus 3 RNA [Presence] in Specimen by URIEL with probe cetgamxbi8228-20-05 20:19:00* Test Item Value Reference Range Interpretation Comme nts Nasopharyngeal Parainfluenza 3 PCR (test code = 99723-6) Not detected [facility] CtrParainfluenza nruhj6072-25-04 20:19:00* Test Item Value Reference Range Interpretation Comme nts Nasopharyngeal Parainfluenza 4 PCR (test code = 33096-3) Not detected [facility] CtrRapid respiratory syncytial virus (RSV) antigen frznkhxnc2954-59-73 20:19:00* Test Item Value Reference Range Interpretation Comme nts Nasophr Respiratory Syncytia l Virus (test code = 62204-9) Not detected [facility] CtrBordetella parapertussis wr9690-26-89 20:19:00* Test Item Value Reference Range Interpretation Comme nts Nasopharyn Bordetella parapertussis (test code = 39307-8) Not detected [facility] CtrBordetella pertussis Ab [Presence] in Specimen 2025-06-10 20:19:00* Test Item Value Reference Range Interpretation Comme nts Nasopharyngeal Bordetella pertussis (test code = 65261-2) Not detected [facility] CtrChlamydia pneumoniae sratxly3460-55-26 20:19:00* Test Item Value Reference Range Interpretation Comme nts Nasopharyngeal Chlamydia pneumoniae (test code = 48899-2) Not detected [facility] CtrSerum Mycoplasma pneumoniae antibody assay on first specimen (units/volume)2025-06-10 20:19:00* Test Item Value Reference Range Interpretation Comme nts Nasopharyngal Mycoplasma pneumoniae (test code = 84381-8) Not detected [facility] CtrAdenovirus Ab [Presence] in Cmrnxfve6120-65-64 20:19:00* Test Item Value Reference Range Interpretation Comme nts Nasopharyngeal Adenovirus PC R (test code = 50795-4) Not detected [facility] CtrHuman coronavirus antigen detection by icufrmsyqsezovqpkv3857-31-66 20:19:00* Test Item Value Reference Range Interpretation Comme nts Nasopharyngeal Coronavirus 2 29E PCR (test code = 40008-1) Not detected [facility] CtrCoronavirus HKU1 RNA assay by VTO6722-46-97 20:19:00* Test Item Value Reference Range Interpretation Comme nts Nasopharyngeal Coronavirus H KU1 PCR (test code = 31220-7) Not detected [facility] CenterCoronavirus NL63 RNA assay by NNF7447-79-83 20:19:00* Test Item Value Reference Range Interpretation Comme nts Nasopharyngeal Coronavirus N L63 PCR (test code = 20534-2) Not detected [facility] coronavirus OC43 antigen detection by tqpzrhlxotnsnoxzap2628-65-52 20:19:00* Test Item Value Reference Range Interpretation Comme nts Nasopharyngeal Coronavirus O C43 PCR (test code = 26753-5) Not detected [facility] CenterSARS coronavirus RNA [Presence] in Specimen by URIEL with probe ufappgrhi6431-43-93 20:19:00* Test Item Value Reference Range Interpretation Comme nts Nasopharyngeal SARS-CoV-2 PC R (test code = 94487-3) Not detected [facility] CenterHuman metapneumovirus detection by SZO1908-27-23 20:19:00* Test Item Value Reference Range Interpretation Comme nts Nasophryn Human Metapneumovi amelia PCR (test code = 19389-0) Not detected [facility] CtrRespiratory specimen human rhinovirus 1 and 2 RNA detection by probe and target amplification wifvdl4376-12-75 20:19:00* Test Item Value Reference Range Interpretation Comme nts Nasopharyn Human Rhino/Enterovirus (test code = 774660-7) Not detected [facility] CtrInfluenza virus A Ag [Presence] in Specimen 2025-06-10 20:19:00* Test Item Value Reference Range Interpretation Comme nts Nasopharyngeal Influenza Typ e A PCR (test code = 06076-6) Not detected [facility] CtrInfluenza virus B Ab [Units/volume] in Specimen 2025-06-10 20:19:00* Test Item Value Reference Range Interpretation Comme nts Nasopharyngeal Influenza B ( PCR) (test code = 89905-9) Not detected [facility] CtrNasopharyngeal specimen parainfluenza virus type 1 RNA detection by probe and target amplification [id number] 20:19:00* Test Item Value Reference Range Interpretation Comme nts Nasopharyngeal Parainfluenza 1 PCR (test code = 54045-9) Not detected [facility] CtrParainfluenza virus 2 RNA [Presence] in Specimen by URIEL with probe [id number] 20:19:00* Test Item Value Reference Range Interpretation Comme nts Nasopharyngeal Parainfluenza 2 PCR (test code = 52662-7) Not detected [facility] CtrParainfluenza virus 3 RNA [Presence] in Specimen by URIEL with probe [id number] 20:19:00* Test Item Value Reference Range Interpretation Comme nts Nasopharyngeal Parainfluenza 3 PCR (test code = 06566-8) Not detected [facility] CtrParainfluenza [id number] 20:19:00* Test Item Value Reference Range Interpretation Comme nts Nasopharyngeal Parainfluenza 4 PCR (test code = 33295-5) Not detected [facility] CtrRapid respiratory syncytial virus (RSV) antigen [id number] 20:19:00* Test Item Value Reference Range Interpretation Comme nts Nasophr Respiratory Syncytia l Virus (test code = 32490-0) Not detected [facility] CtrBordetella parapertussis [id number] 20:19:00* Test Item Value Reference Range Interpretation Comme nts Nasopharyn Bordetella parapertussis (test code = 81588-7) Not detected [facility] CtrBordetella pertussis Ab [Presence] in Specimen 2025-06-10 20:19:00* Test Item Value Reference Range Interpretation Comme nts Nasopharyngeal Bordetella pertussis (test code = 96352-2) Not detected [facility] CtrChlamydia pneumoniae [id number] 20:19:00* Test Item Value Reference Range Interpretation Comme nts Nasopharyngeal Chlamydia pneumoniae (test code = 69989-3) Not detected [facility] CtrSerum Mycoplasma pneumoniae antibody assay on first specimen (units/volume)2025-06-10 20:19:00* Test Item Value Reference Range Interpretation Comme nts Nasopharyngal Mycoplasma pneumoniae (test code = 19834-2) Not detected [facility] CtrNT-proBNP nznbtjvwmdv2794-72-36 19:52:00* Test Item Value Reference Range Interpretation Comme nts PH-Hpb-Y-Type Natriuretic Pe ptide (test code = 785599301) 281 [facility] CtrSerum or plasma cardiac troponin I panel by high sensitivity vyvcjz7300-64-27 19:51:00* Test Item Value Reference Range Interpretation Comme nts Troponin T High Sensitivity (test code = 01199-2) 16.4 [facility] VuoKxblzhc1817-69-14 19:50:00* Test Item Value Reference Range Interpretation Comme nts Ammonia (test code = QIZ5580) 39.2 [facility] CtrAlcohol level, othsn9148-95-08 19:50:00* Test Item Value Reference Range Interpretation Comme nts Ethyl Alcohol Level (test co de = 331409160) < 10.0 [facility] CtrBilirubin [id number] 19:46:00* Test Item Value Reference Range Interpretation Comme nts Total Bilirubin (test code = SFP8847) < 0.2 [facility] CtrSerum or plasma urea nitrogen measurement (mass/volume)2025-06-10 19:46:00* Test Item Value Reference Range Interpretation Comme nts Blood Urea Nitrogen (test co de = 3094-0) 16 [facility] [id number] 19:46:00* Test Item Value Reference Range Interpretation Comme nts Aspartate Amino Transf (AST/ SGOT) (test code = PUL5684) 10 [facility] CtrCreatinine [id number] 19:46:00* Test Item Value Reference Range Interpretation Comme nts Creatinine (test code = 355386828) 0.93 [facility] CtrEstimated glomerular filtration rate (GFR) naytqjadgifpl1984-52-47 19:46:00* Test Item Value Reference Range Interpretation Comme nts Glomerular Filtration Rate C alc (test code = 632038670) > 60.00 [facility] CtrBUN/creatinine tblkq1143-71-07 19:46:00* Test Item Value Reference Range Interpretation Comme nts BUN/Creatinine Ratio (test c ode = 92970449) 17.2 [facility] CtrBody fluid potassium qbifxbpzbxf3749-37-97 19:46:00* Test Item Value Reference Range Interpretation Comme nts Potassium Level (test code = 2821-7) 3.6 [facility] SvsKR59324-91-39 19:46:00* Test Item Value Reference Range Interpretation Comme nts Carbon Dioxide Level (test c ode = 48059466) 25 [facility] CtrAnion gap vihwsqxlcbb1654-51-52 19:46:00* Test Item Value Reference Range Interpretation Comme nts Anion Gap (test code = 46648647) 13.6 [facility] CtrCalcium vtdiw2644-50-43 19:46:00* Test Item Value Reference Range Interpretation Comme nts Calcium Level (test code = 11225452) 8.1 [facility] IwsTcgvdchxu0182-84-22 19:46:00* Test Item Value Reference Range Interpretation Comme nts Magnesium Level (test code = 81574225) 2.0 [facility] CtrGlobulin dyf3888-59-11 19:46:00* Test Item Value Reference Range Interpretation Comme nts Globulin (test code = 414416577) 2.8 [facility] CtrALT (SGPT) ser/gswo1056-16-47 19:46:00* Test Item Value Reference Range Interpretation Comme nts Alanine Aminotransferase (AL T/SGPT) (test code = 1742-6) 7 [facility] CtrAmylase daqok4380-14-40 19:46:00* Test Item Value Reference Range Interpretation Comme nts Amylase Level (test code = 1798-8) 46 [facility] NpxIwpogt3770-71-52 19:46:00* Test Item Value Reference Range Interpretation Comme nts Lipase (test code = 389520228) 29 [facility] CtrALP ser/wsbf4177-14-91 19:46:00* Test Item Value Reference Range Interpretation Comme nts Total Alkaline Phosphatase ( test code = 6768-6) 115 [facility] Center[facility] corpus[facility] hemoglobin concentration (MCHC) cbghzoqxztdbr0449-98-23 19:20:00* Test Item Value Reference Range Interpretation Comme [facility] Mean Corpuscular Hemoglobin Concent (test code = 57479356) 33.0 [facility] CtrRBC distribution width coefficient of variation 2025-06-10 19:20:00* Test Item Value Reference Range Interpretation Comme [facility] Red Cell Distribution Width (test code = 38242124) 12.0 [facility] CtrPlatelet ibuip9956-23-93 19:20:00* Test Item Value Reference Range Interpretation Comme [facility] Platelet Count (test code = 22950831) 366 [facility] CtrMean platelet csmuxz9539-41-89 19:20:00* Test Item Value Reference Range Interpretation Comme nts Mean Platelet Volume (test c ode = 94666868) 8.9 [facility] CtrNeutrophils seg % rin3396-06-03 19:20:00* Test Item Value Reference Range Interpretation Comme nts Neutrophils (%) (Auto) (test code = 11733-6) 67.8 [facility] CtrAbsolute immature granulocyte rscwh1147-85-16 19:20:00* Test Item Value Reference Range Interpretation Comme nts Absolute Immature Granulocyt e (auto (test code = 01401-8) 0.01 [facility] CtrBasophil % tkadin0249-42-18 19:20:00* Test Item Value Reference Range Interpretation Comme nts Basophils (%) (Auto) (test c ode = 86249-2) 0.5 [facility] CtrBlood band neutrophils count (number/volume) 2025-06-10 19:20:00* Test Item Value Reference Range Interpretation Comme nts Neutrophils # (Auto) (test c ode = 15564-4) 4.01 [facility] CtrAbsolute lymphocyte epyia9948-50-82 19:20:00* Test Item Value Reference Range Interpretation Comme nts Lymphocytes # (Auto) (test c ode = 15845-1) 1.28 [facility] CtrAbsolute basophil sopge7188-66-81 19:20:00* Test Item Value Reference Range Interpretation Comme nts Basophils # (Auto) (test cod e = 92006851) 0.03 [facility] CtrAbsolute NRBC [id number] 19:20:00* Test Item Value Reference Range Interpretation Comme nts Nucleated Red Blood Cells # (test code = 296610401) 0 [facility] CtrAbsolute eosinophil pwozi8881-65-71 19:20:00* Test Item Value Reference Range Interpretation Comme nts Eosinophils # (Auto) (test c ode = QCH6999) 0.15 [facility] CtrRBC mdtha0902-28-63 19:20:00* Test Item Value Reference Range Interpretation Comme nts Red Blood Count (test code = 35887855) 4.30 [facility] PelEdmgvrikdv9621-75-76 19:20:00* Test Item Value Reference Range Interpretation Comme nts Hematocrit (test code = 17937246) 40.3 [facility] CtrMCV (mean corpuscular volume) determination 2025-06-10 19:20:00* Test Item Value Reference Range Interpretation Comme nts Mean Corpuscular Volume (rowan t code = 76888-9) 93.7 [facility] CtrMean corpuscular hemoglobin (MCH) determination 2025-06-10 19:20:00* Test Item Value Reference Range Interpretation Comme nts Mean Corpuscular Hemoglobin (test code = 10876151) 30.9 [facility] Ctr Notes <thead> Date/Time Note Provider Source [facility] Yev2793-78-45 13:48:24 Future Tests Future scheduled test information is unavailable Pending Tests <thead> Test Name Ordered Date Scheduled Date Urine Color June 10, 2025 7:04pm Urine Appearance June 10, 2025 7:04pm Urine Glucose (UA) June 10, 2025 7:04pm Urine Bilirubin June 10, 2025 7:04pm Urine Ketones June 10, 2025 7:04pm Urine Specific [place] June 10, 2025 7:04p m Urine Blood [...] Information Provider Address [place] Work Phone: [place] [phone] NO PHYSICIAN NO PHYSICIAN NO PHYSICIAN Future [...] is unavailable Patient Instructions <tbody> Dental Abscess, Nlsj-nb-Esom Community-Acquired Pneumonia , Adult, Hbtw-xw-Omeu Dehydration, Adult, Easy-to- Read Viral Illness, Adult Cocaine Use Disorder Hypertension, Adult, Easy-to -Read [facility] [id number] 22:47:33 Patient Care Team <thead> Team Status: Active Member Role Status Dates . NO PHYSICIAN primary care physician Active STEVIE GAMA MD Emergency Provider Active JAILYN HILTON Next of Kin Active JAILYN CORNELIUSIAN Emergency Contact Active [facility] [id number] 22:47:33 Future Tests Future scheduled test information is unavailable Pending Tests <thead> Test Name Ordered Date Scheduled Date Urine Color June 10, 2025 7:04pm Urine Appearance June 10, 2025 7:04pm Urine Glucose (UA) June 10, 2025 7:04pm Urine Bilirubin June 10, 2025 7:04pm Urine Ketones June 10, 2025 7:04pm Urine Specific [place] June 10, 2025 7:04p m Urine Blood [...] Information Provider Address [place] Work Phone: [address] [phone] NO PHYSICIAN NO PHYSICIAN Future Procedures <thead> Procedure Name Ordered Date Scheduled Date URINALYSIS June 10, 2025 7:06pm Junie roque 2024 7:04pm URINE DRUG SCREEN June 10, 2025 7:06pm Sep tember 2024 7:04pm Future Medications Future medication information is unavailable Patient Instructions <tbody> Dental Abscess, Anfg-jp-Darp Community-Acquired Pneumonia , Adult, Cmys-sm-Thqp Dehydration, Adult, Easy-to- Read Viral Illness, Adult [facility]
[2025-07-02 09:11] LABS: Absolute Lymphocytes (CBC) 1.5 K/uL (0.7-4.9); Hematocrit 41.1 % (39.6-49.0); Hemoglobin 13.8 g/dL (13.6-17.9); MCH 31.1 pg (27.0-35.0); MCHC 33.5 g/dL (32.0-36.0); MCV 93.0 fL (80-100); MPV 6.9 fL (7.6-11.3); Nucleated RBC Absolute Count 0.0 (0-0); Nucleated Red Blood Cells % 0.0 % (0-0); RBC Red Blood Cell Count 4.42 M/uL (4.33-5.43); White Blood Count 10.90 thou/uL (4.3-10.9)
[2025-07-02 09:17] LABS: PT Prothrombin Time 10.9 SECONDS (10-13.0); Protime INR 0.96
[2025-07-02 09:37] LABS: ALT/SGPT 31 U/L (16-61); AST/SGOT 20 U/L (15-37); Albumin 1.1 g/dL (3.4-5.0); Albumin/Globulin Ratio 0.4 (1.1-1.8); Alkaline Phosphatase 92 U/L (45-117); Anion Gap 7.5 mEq/L (5.0-15.0); BUN Blood Urea Nitrogen 33 mg/dL (7-18); Globulin 3.1 g/dL (2.3-3.5); Glucose Level 145 mg/dL (74-106); Magnesium 2.2 mg/dL (1.6-2.4); NT PRO-BNP 589 pg/mL (<125); Potassium 3.5 mEq/L (3.5-5.1); Troponin High Sensitivity 11.1 pg/mL (<58.9)
[2025-07-02 09:42] LABS: Bilirubin Indirect, Calculated 0.0 mg/dL (0.2-0.8)
--- NOTE | 2025-07-02 09:45 | RAD REPORT ---
EXAMINATION: US BILATERAL LOWER EXTREMITY VENOUS DOPPLER CLINICAL INDICATION: Pain;Swelling TECHNIQUE: Complete bilateral duplex sonography of the BILATERAL lower extremity veins was performed. The examination included compression for vein patency, color Doppler imaging and flow augmentation in response to distal compression of the distal external iliac, common femoral, femoral, popliteal, t ibial, and great and small saphenous veins. COMPARISON: No prior exam. FINDINGS: Duplex sonography testing of the veins of the BILATERAL lower extremity was performed. Color flow jorge ging shows all veins to be compressible with qlbw-ib-nrvb color filling. Pulsatile and phasic flow is present within all lower extremity deep and superficial veins examined. IMPRESSION: There is no deep vein or superficial vein thrombosis.
--- NOTE | 2025-07-02 09:45 | RAD REPORT ---
EXAMINATION: US BILATERAL UPPER EXTREMITY VENOUS DOPPLER CLINICAL INDICATION: PAIN TECHNIQUE: Complete bilateral duplex sonography of the BILATERAL upper extremity veins was performed. The examination included compression for vein patency, color Doppler imaging and flow augmentation in response to distal compression of the internal jugular, brachiocephalic, subclavian, axillary, bra chial, radial, ulnar, cephalic and basilic veins. COMPARISON: No prior exam. FINDINGS: Duplex sonography testing of the veins of the BILATERAL upper extremity was performed. Color flow jorge ging shows all veins to be compressible with sddz-ym-gron color filling. Pulsatile and phasic flow is present within all upper extremity deep and superficial veins examined. IMPRESSION: There is no deep vein or superficial vein thrombosis.
--- NOTE | 2025-07-02 09:57 | RAD REPORT ---
EXAM: CT CHEST, ABDOMEN AND PELVIS WITHOUT CONTRAST CLINICAL INDICATION: PAIN TECHNIQUE: CT chest, abdomen and pelvis was performed without contrast, as per department protocol. A xial, sagittal and coronal reconstructions were obtained. One or more of the following dose reduction techniques were used: Automated exposure control, adjustment of the mA and/or kV according to patient size, and/or iterative reconstruction. Unless otherwise specified, incidental findings do not require dedicated imaging follow-up. Examination is limited by the lack of intravenous contrast material. COMPARISON: 06/28/2025 FINDINGS: LUNGS: Mild opacity in the left base noted probably atelectasis, early infiltrate not excluded. The l ungs are otherwise clear. PLEURA: Small left pleural effusion. MEDIASTINUM AND LYMPH NODES: No mediastinal mass or fluid collection. Normal size mediastinal, hilar, and axillary lymph nodes. OSSEOUS STRUCTURES AND CHEST WALL: Intact. Moderate subcutaneous edema seen along the anterior chest as well as the left axilla and flank. LIVER: Normal in size and contour. No focal lesion or biliary dilatation. Cholecystectomy clips. PANCREAS: No mass, ductal dilation, or memo-pancreatic fluid. SPLEEN: Normal size. No focal lesion. ADRENALS: Normal; no mass. KIDNEYS: Normal size and contour. No hydronephrosis. URINARY BLADDER: Normal contour. GASTROINTESTINAL TRACT: Mild ascites. No bowel obstruction or free air. Moderate stool retained throu ghout the colon. APPENDIX: Appendix not visualized, but no inflammatory changes in region of appendix. LYMPH NODES: No lymphadenopathy. MUSCULOSKELETAL: Chronic bilateral spondylolysis with mild anterolisthesis L5 on S1. Mild lumbar spon dylosis. OTHER: Small fat-containing hernias bilaterally. IMPRESSION: There is a mild fluid retention pattern present as described with a small left pleural effusion, mild ascites and anasarca. Small left basilar opacity may represent mild infiltrate or atelectasis.
--- NOTE | 2025-07-02 10:10 | RAD REPORT ---
EXAMINATION: ONE VIEW CHEST XR CLINICAL INDICATION: COUGH TECHNIQUE: Frontal chest projection is submitted. Examination is limited by patient positioning and t echnique. COMPARISON: 07/02/2025 FINDINGS: Mild linear opacity left base with small left pleural effusion. This may represent atelectasis or mil d infiltrate. The heart is upper limit of normal in size. No displaced fractures identified.
--- NOTE | 2025-07-02 10:31 | ER ---
Nurse's Notes [facility] Name: Yohannes Velazquez Age: 64 yrs Sex: Male : 1960 Arrival Date: 07/02/2025 Time: 08:40 Bed 5 Private MD: Diagnosis: Edema, unspecified;Pleural effusion in other conditions classified elsewhere;Other ascites-mild;Shortness of breath Presentation: 07/02 08:35 Chief complaint: EMS states: BILATERAL HAND SWELLING WITH SOB. DENIES MEDICAL PROBLEMS. db COMING FROM [facility] [place]. Coronavirus screen: Client denies travel out of the [place] in the last 14 days. At this time, the client does not indicate any symptoms associated with coronavirus-19. Ebola Screen: Patient negative for fever greater than or equal to 101.5 degrees Fahrenheit, and additional compatible Ebola Virus Disease symptoms Patient denies exposure to infectious person. Patient denies travel to an Ebola-affected area in the 21 days before illness onset. No symptoms or risks identified at this time. Initial Sepsis Screen: Does the patient meet any 2 criteria? No. Patient's initial sepsis screen is negative. Does the patient have a suspected source of infection? No. Patient's initial sepsis screen is negative. Risk Assessment: Do you want to hurt yourself or someone else? Patient reports no desire to harm self or others. Onset of symptoms was July 02, 2025. 08:35 Method Of Arrival: EMS: [facility] db 08:35 Acuity: BREA 2 db Triage Assessment: 08:52 General: Appears in no apparent distress. comfortable, Behavior is calm, cooperative. db Pain: Complains of pain in right hand and left hand. Neuro: Level of Consciousness is awake, alert, obeys commands, Oriented to person, place, time, situation. Cardiovascular: Capillary refill < 3 seconds Patient's skin is warm and dry. Respiratory: Reports shortness of breath Onset: The symptoms/episode began/occurred gradually, the patient has mild shortness of breath. Historical: - Allergies: 08:52 No Known Allergies; db - PMHx: 08:52 Pneumonia; db - PSHx: 08:52 Appendectomy; Cholecystectomy; laminectomy; db - Immunization history:: Adult Immunizations unknown. - Infectious Disease History:: Denies. - Social history:: Smoking status: Patient reports the use of cigarette tobacco products, smokes one-half pack cigarettes per day. Screenin:56 [facility] ED Fall Risk Assessment (Adult) History of falling in the last 3 months, db including since admission No falls in past 3 months (0 pts) Confusion or Disorientation No (0 pts) Intoxicated or Sedated No (0 pts) Impaired Gait No (0 pts) Mobility Assist Device Used No (0 pt) Altered Elimination No (0 pt) Score/Fall Risk Level 0 - 2 = Low Risk Oriented to surroundings, Maintained a safe environment. Abuse screen: Denies threats or abuse. Denies injuries from another. Nutritional screening: No deficits noted. Tuberculosis screening: No symptoms or risk factors identified. Assessment: 08:55 Reassessment: SEE TRIAGE FOR INITIAL ASSESSMENT. Respiratory: Airway is patent db Respiratory effort is even, unlabored, Respiratory pattern is regular, symmetrical. 10:00 Cardiovascular: Rhythm is regular. Respiratory: Breath sounds are clear bilaterally. mn1 Vital Signs: 08:35 BP 145 / 85; Pulse 92; Resp 16; Temp 98.1(O); Pulse Ox 98% ; Weight 76.66 kg; Height 5 db ft. 5 in. ; 09:30 BP 150 / 85; Pulse 72; Resp 16; Pulse Ox 98% ; me1 10:30 BP 159 / 88; Pulse 69; Resp 15; Pulse Ox 100% ; me1 11:19 BP 156 / 79; Pulse 65; Resp 15; Temp 98.2; Pulse Ox 99% ; me1 08:35 Body Mass Index 28.12 (76.66 kg, 165.1 cm) ED Course: 08:48 Initial lab(s) drawn, by mn, sent to lab. EKG done. Inserted saline lock: 20 gauge in db right antecubital area, using aseptic technique. Blood collected. Flushed with 10 mL NS. 08:49 Patient arrived in ED. db 08:52 Triage completed. db 08:52 Arm band placed on Patient placed in an exam room. db 08:53 Mart Rodriguez MD is Attending Physician. alina 08:56 Patient has correct armband on for positive identification. Bed in low position. Call db light in reach. Side rails up X 1. Client placed on continuous cardiac and pulse oximetry monitoring. NIBP monitoring applied. gold leaf laborer on. Pulse ox on. NIBP on. Pillow given. 08:58 Croft, Eve, RN is Primary Nurse. db 09:37 UPPER EXTREMITY VENOUS BILAT In Process Unspecified. EDMS 09:37 US Extremity Venous W Compression Jose Maria: lower In Process Unspecified. EDMS 09:47 CT Chest Abdomen Pelvis W/O Contrast In Process Unspecified. EDMS 10:05 XRAY Chest (1 view) In Process Unspecified. EDMS 10:30 Can Arevalo MD is Referral Physician. alina 10:37 Basic Metabolic Panel Sent. me1 10:37 CBC with Diff Sent. me1 10:37 Troponin HS Sent. me1 11:19 No provider procedures requiring assistance completed. me1 11:20 Provided Education on: POC. Verbalized understanding.. me1 11:30 IV discontinued, intact, bleeding controlled, No redness/swelling at site. Pressure me1 dressing applied. Administered Medications: 11:06 Drug: Furosemide IVP 20 mg IVP once; give over 2 minutes Route: IVP; Site: right me1 antecubital; 11:19 Follow up: Response: No adverse reaction me1 11:06 Drug: Aspirin PO Chewable Tablet 81 mg PO once Route: PO; me1 11:19 Follow up: Response: No adverse reaction me1 11:06 Drug: Famotidine IVP 20 mg IVP once; dilute with 10 mL 0.9% NaCl; give over 2 minutes me1 Route: IVP; Site: right antecubital; 11:19 Follow up: Response: No adverse reaction me1 Medication: 08:56 VIS not applicable for this client. db Outcome: 10:31 Discharge ordered by . [facility] 11:30 Discharged to home ambulatory, me1 11:30 Condition: stable 11:30 Discharge instructions given to patient, Instructed on discharge instructions, follow up and referral plans. medication usage, Demonstrated understanding of instructions, follow-up care, medications, Prescriptions given X 3, 11:31 Patient left the ED. me1 Signatures: Dispatcher [employer] Mart Bella MD MD cha Benton, Danielle, RN RN Bessy Barton, RAFAL RN me1 Corrections: (The following items were deleted from the chart) 08:53 08:52 PMHx: None; db db
--- NOTE | 2025-07-02 10:31 | EDPHYS ---
Physician Documentation [facility] Name: Yohannes Velazquez Age: 64 yrs Sex: Male : 1960 Arrival Date: 07/02/2025 Time: 08:40 Bed 5 Private MD: ED Physician Mart Rodriguez HPI: 07/02 10:16 This 64 yrs old Male presents to ER via EMS with complaints of Swelling of alina Lower Extremity, Hand Swelling, Shortness Of Breath. 10:16 The patient presents with swelling. The complaints affect the right arm, left arm, alina right leg and left leg. Context: The problem was sustained at an unknown site. Modifying factors: The symptoms are alleviated by nothing. the symptoms are aggravated by nothing. Associated signs and symptoms: The patient has no apparent associated signs or symptoms. Treatment prior to arrival includes: no previous treatment. Severity of symptoms: At their worst the symptoms were mild, moderate, in the emergency department the symptoms are unchanged. The patient has experienced similar episodes in the past, several times. Historical: - Allergies: 08:52 No Known Allergies; db - PMHx: 08:52 Pneumonia; db - PSHx: 08:52 Appendectomy; Cholecystectomy; laminectomy; db - Immunization history:: Adult Immunizations unknown. - Infectious Disease History:: Denies. - Social history:: Smoking status: Patient reports the use of cigarette tobacco products, smokes one-half pack cigarettes per day. ROS: 10:17 Constitutional: Negative for fever, chills, and weight loss, Eyes: Negative for injury, alina pain, redness, and discharge, ENT: Negative for injury, pain, and discharge, Neck: Negative for injury, pain, and swelling, Cardiovascular: Negative for chest pain, palpitations, and edema, Abdomen/GI: Negative for abdominal pain, nausea, vomiting, diarrhea, and constipation, Back: Negative for injury and pain, : Negative for injury, bleeding, discharge, and swelling, Skin: Negative for injury, rash, and discoloration, Neuro: Negative for headache, weakness, numbness, tingling, and seizure, Psych: Negative for depression, anxiety, suicide ideation, homicidal ideation, and hallucinations, Allergy/Immunology: Negative for hives, rash, and allergies, Endocrine: Negative for neck swelling, polydipsia, polyuria, polyphagia, and marked weight changes, Hematologic/Lymphatic: Negative for swollen nodes, abnormal bleeding, and unusual bruising, 10:17 Cardiovascular: Positive for edema, 10:17 MS/extremity: Positive for swelling, tenderness, of the right arm, left arm, right leg and left leg, Exam: 10:19 Constitutional: This is a well developed, well nourished patient who is awake, alert, alina and in no acute distress. Head/Face: Normocephalic, atraumatic. Eyes: Pupils equal round and reactive to light, extra-ocular motions intact. Lids and lashes normal. Conjunctiva and sclera are non-icteric and not injected. Cornea within normal limits. Periorbital areas with no swelling, redness, or edema. ENT: Nares patent. No nasal discharge, no septal abnormalities noted. Tympanic membranes are normal and external auditory canals are clear. Oropharynx with no redness, swelling, or masses, exudates, or evidence of obstruction, uvula midline. Mucous membranes moist. Neck: Trachea midline, no thyromegaly or masses palpated, and no cervical lymphadenopathy. Supple, full range of motion without nuchal rigidity, or vertebral point tenderness. No Meningismus. Chest/axilla: Normal chest wall appearance and motion. Nontender with no deformity. No lesions are appreciated. Cardiovascular: Regular rate and rhythm with a normal S1 and S2. No gallops, murmurs, or rubs. Normal PMI, no JVD. No pulse deficits. Respiratory: Lungs have equal breath sounds bilaterally, clear to auscultation and percussion. No rales, rhonchi or wheezes noted. No increased work of breathing, no retractions or nasal flaring. Abdomen/GI: Soft, non-tender, with normal bowel sounds. No distension or tympany. No guarding or rebound. No evidence of tenderness throughout. Back: No spinal tenderness. No costovertebral tenderness. Full range of motion. Male : Normal genitalia with no discharge or lesions. Skin: Warm, dry with normal turgor. Normal color with no rashes, no lesions, and no evidence of cellulitis. Neuro: Awake and alert, GCS 15, oriented to person, place, time, and situation. Cranial nerves II-XII grossly intact. Motor strength 5/5 in all extremities. Sensory grossly intact. Cerebellar exam normal. Normal gait. Psych: Awake, alert, with orientation to person, place and time. Behavior, mood, and affect are within normal limits. 10:19 ECG was reviewed by the Attending Physician. 10:19 Musculoskeletal/extremity: ROM: intact in all extremities, full active range of motion, full passive range of motion, Circulation is intact in all extremities. Sensation intact. Compartment Syndrome exam of affected extremity: is normal. Weight bearing: able to fully bear weight, DVT Exam: no pain, no tenderness, negative Homans' sign noted on exam, no appreciated bluish discoloration, no erythema, no increased warmth, swelling, Vital Signs: 08:35 BP 145 / 85; Pulse 92; Resp 16; Temp 98.1(O); Pulse Ox 98% ; Weight 76.66 kg; Height 5 db ft. 5 in. ; 09:30 BP 150 / 85; Pulse 72; Resp 16; Pulse Ox 98% ; me1 10:30 BP 159 / 88; Pulse 69; Resp 15; Pulse Ox 100% ; me1 11:19 BP 156 / 79; Pulse 65; Resp 15; Temp 98.2; Pulse Ox 99% ; me1 08:35 Body Mass Index 28.12 (76.66 kg, 165.1 cm) db MDM: 08:53 Medical Screening Exam initiated alina 10:33 Differential diagnosis: contusion, tendonitis. Antibiotic administration: Not alina indicated. Differential Diagnosis altered mental status, sepsis, flu. Immunization status: Influenza vaccine: within last 5 years. Data reviewed: vital signs, nurses notes, lab test result(s), EKG, radiologic studies, doppler, plain films. Consideration of Admission/Observation Escalation of care including admission/observation considered. I considered the following discharge prescriptions or medication management in the emergency department Medications were administered in the Emergency Department. See MAR. Independent interpretation of the following test(s) in the Emergency Department EKG: See my EKG interpretation above. Test considered but Not performed: Ultrasound no 2 d echo. Care significantly affected by the following chronic conditions: pna, edema. Counseling: I had a detailed discussion with the patient and/or guardian regarding the historical points, exam findings, and any diagnostic results supporting the discharge/admit diagnosis, the presence of at least one elevated blood pressure reading (>120/80) during this emergency department visit, lab results, radiology results, the need for outpatient follow up, for definitive care, a marine consultant, a family practitioner. 07/02 08:58 Order name: Basic Metabolic Panel; Complete Time: 10:11 [facility] 07/02 08:58 Order name: CBC with Diff; Complete Time: 10:11 alina 07/02 08:58 Order name: LFT's; Complete Time: 10:11 07/02 08:58 Order name: Magnesium; Complete Time: 10:11 [facility] 07/02 08:58 Order name: NT PRO-BNP; Complete Time: 10:11 [facility] 07/02 08:58 Order name: PT-INR; Complete Time: 10:11 alina 07/02 08:58 Order name: Troponin HS; Complete Time: 10:11 [facility] 07/02 08:58 Order name: Basic Metabolic Panel db 07/02 08:58 Order name: CBC with Diff db 07/02 08:58 Order name: Troponin HS db 07/02 08:58 Order name: XRAY Chest (1 view); Complete Time: 10:12 [facility] 07/02 09:00 Order name: US Extremity Venous W Compression Jose Maria: lower; Complete Time: 10:11 [facility] 07/02 09:00 Order name: CT Chest Abdomen Pelvis W/O Contrast; Complete Time: 10:11 [facility] 07/02 09:02 Order name: UPPER EXTREMITY VENOUS BILAT; Complete Time: 10:11 [facility] 07/02 08:54 Order name: EKG - Nurse/Tech; Complete Time: 08:54 db 07/02 08:58 Order name: Cardiac monitoring; Complete Time: 08:59 alina 07/02 08:58 Order name: EKG - Nurse/Tech; Complete Time: 08:59 alina 07/02 08:58 Order name: IV Saline Lock; Complete Time: 08:59 alina 07/02 08:58 Order name: Labs collected and sent; Complete Time: 08:59 alina 07/02 08:58 Order name: O2 Per Protocol; Complete Time: 08:59 alina 07/02 08:58 Order name: O2 Sat Monitoring; Complete Time: 08:59 07/02 08:58 Order name: Cardiac monitoring; Complete Time: 08:58 db 07/02 08:58 Order name: IV Saline Lock; Complete Time: 08:58 db 07/02 08:58 Order name: Labs collected and sent; Complete Time: 08:58 db 07/02 08:58 Order name: O2 Per Protocol; Complete Time: 08:58 db 07/02 08:58 Order name: O2 Sat Monitoring; Complete Time: 08:58 db EC:19 Rate is 81 beats/min. Rhythm is regular. QRS Prentiss is Normal. CT interval is normal. QRS alina interval is normal. QT interval is normal. No Q waves. T waves are Normal. No ST changes noted. Clinical impression: NSR w/ Non-specific ST/T Changes and No evidence of ischemia. Interpreted by me. Reviewed by me. Administered Medications: 11:06 Drug: Furosemide IVP 20 mg IVP once; give over 2 minutes Route: IVP; Site: right me1 antecubital; 11:19 Follow up: Response: No adverse reaction me1 11:06 Drug: Aspirin PO Chewable Tablet 81 mg PO once Route: PO; me1 11:19 Follow up: Response: No adverse reaction me1 11:06 Drug: Famotidine IVP 20 mg IVP once; dilute with 10 mL 0.9% NaCl; give over 2 minutes me1 Route: IVP; Site: right antecubital; 11:19 Follow up: Response: No adverse reaction me1 Disposition Summary: 07/02/25 10:31 Discharge Ordered Notes: Location: Home alina Problem: new alina Symptoms: have improved alina Condition: Stable alina Diagnosis - Edema, unspecified alina - Pleural effusion in other conditions classified elsewhere alina - Other ascites - mild alina - Shortness of breath alina Followup: alina - With: Private Physician - When: 2 - 3 days - Reason: Recheck today's complaints, Continuance of care, Re-evaluation by your physician Followup: alina - With: Can Arevalo MD - When: 2 - 3 days - Reason: Recheck today's complaints, Continuance of care, Re-evaluation by your physician Discharge Instructions: - Discharge Summary Sheet alina - Ascites alina - Edema alina - Pleural Effusion alina - Shortness of Breath, Adult alina - Shortness of Breath, Adult, [id number] alina - Aspirin and Your Heart alina - Peripheral Edema alina Forms: - Medication Reconciliation Form alina - Antibiotic Education alina - Prescription Opioid Use alina - Patient Portal Instructions alina - Leadership Thank You Letter alina Prescriptions: - Pepcid 20 mg Oral tablet - take 1 tablet ORAL route every 12 hours for 21 days; 42 tablet; Refills: 0, alina Product Selection Permitted - Lasix 20 mg Oral Tablet - take 1 tablet ORAL route once daily; 20 tablet; Refills: 0, Product Selection alina Permitted - Potassium Chloride 20 meq Oral Packet - take 1 packet ORAL route once daily 1 packet in 6 (six) ounces of water or alina juice; Take after meal; 20 packet; Refills: 0, Product Selection Permitted Signatures: Dispatcher [employer] Mart Bella MD MD cha Benton, Danielle, RN RN Bessy Barton RN RN me1 Corrections: (The following items were deleted from the chart) 08:53 08:52 PMHx: None; db db 08:59 08:59 Chest Single View+RAD.RAD.BRZ ordered. EDMS EDMS 08:59 08:59 Extrem Venous W Compression Jose Maria+US.RAD.BRZ ordered. EDMS EDMS 09:01 09:00 Extrem Venous W Compression Jose Maria+US.RAD.BRZ ordered. EDMS EDMS 09:01 09:01 Chest Abdomen Pelvis Wo Con+CT.RAD.BRZ ordered. EDMS EDMS 09:02 09:00 Chest Single View+RAD.RAD.BRZ ordered. EDMS EDMS
[2025-07-02] MEDS ORDERED: ASPIRIN 81 MG CHEWABLE TABLET ONE (11:02)
[2025-07-02] MEDS ORDERED: FAMOTIDINE 20 MG/2 ML VIAL IV ONE (11:02)
[2025-07-02] MEDS ORDERED: FUROSEMIDE 20 MG/ 2ML VIAL ONE (11:02)
[2025-07-02 11:57] VITALS: BP 156/79; TEMP 98.2; O2SAT 99
== END 2025-07-02 11:31 | disposition home or self-care (01) ==
LOC: ER 08:40
DX: R06.02 Shortness of breath (principal); J91.8 Pleural effusion in other conditions classified elsewhere; R18.8 Other ascites; F17.210 Nicotine dependence, cigarettes, uncomplicated
CPT/HCPCS: 93005; 85025; 80048; 36415; 83735; 85610; 80076; 84484; 83880; 71250; 74176; 71045; 93970 ×2; 96375; 96374; 99285; J1938

== ENCOUNTER 2025-07-04 12:55 | Inpatient (IN) | payer OTHER ==
--- OUTSIDE RECORDS SUMMARY | 2025-07-04 13:00 | XMS REPORT | Continuity of Care Document ---
Author Name Unknown Address [address] [facility] [place] [address] [facility] Address [address] [facility] [address] [place] [address] Care Team Providers Care Investigations Chief Name Role Phone NO PHYSICIAN, . Primary [...] Treating Clinician Comments Source Dehydratio n [facility] Dental abscess [facility] Low back pain Problem [facility] Pneumonia Problem [facility] Viral infection Problem [facility] Cocaine abuse Problem [facility] Hypertensi on Problem [facility] Social History Social Habit Start Date Stop Date Quantity Comments Source History of tobacco use [facility] Smoking Status Start Date Stop Date Source Current some day smoker 2023-03-20 10:44:00 [facility] Medications Ordered Medication Name Filled Medication Name Start Date Stop Date Current Medication? Ordering Clinician Indication Dosage Frequency Signature (SIG) Comments Components Source Amlodipine Besylate (Norvasc *) 10 Mg TAB Amlodipine Besylate (Norvasc *) 10 Mg TAB 06-11 12:59: 00 Yes 1{tbl} [facility] Albuterol (Ventolin Hfa *) 90 Mcg/Act INH Albuterol (Ventolin Hfa *) 90 Mcg/Act INH 03-20 13:55: 00 Yes 2 [facility] Azithromyci n (Zithromax Z-Tan *) 250 Mg TAB Azithromyci n (Zithromax Z-Tan *) 250 Mg TAB 03-20 13:55: 00 Yes 1{tbl} [facility] Benzonatate (Tessalon *) 100 Mg CAP Benzonatate (Tessalon *) 100 Mg CAP 03-20 13:55: 00 Yes 1 [facility] Prednisone (Prednisone *) 20 Mg TAB Prednisone (Prednisone *) 20 Mg TAB 03-20 13:55: 00 Yes 2{tbl} [facility] Acetaminoph en W/ Codeine #3 * (Tylenol Codeine #3 300MG/30MG *) 1 Tab TAB Acetaminoph en W/ Codeine #3 * (Tylenol Codeine #3 300MG/30MG *) 1 Tab TAB 03-01 10:02: 30 Yes 1{tbl} [facility] Sertraline Hcl (Zoloft *) 50 Mg TAB Sertraline Hcl (Zoloft *) 50 Mg TAB 03-01 10:02: 30 Yes 50mg [facility] Trazodone Hcl (Desyrel 100 Mg*) 100 Mg TAB Trazodone Hcl (Desyrel 100 Mg*) 100 Mg TAB 03-01 10:02: 30 Yes 100mg [facility] Vital Signs Vital Name Observation Time Observation Value Comments S ource Height 2025-06-11 08:54:00 165.675413 cm [facility] Weight 2025-06-11 08:54:00 70.927441 kg [facility] BMI (Body Mass Index) 2025-06-11 08:54:00 25.8 kg/m2 [facility] Height 2025-06-10 19:00:00 167.513966 cm [facility] Weight 2025-06-10 19:00:00 70.401279 kg [facility] BMI (Body Mass Index) 2025-06-10 19:00:00 25.0 kg/m2 [facility] Encounters Start Date/Time End Date/Time Encounter Type Admission Type Attending [facility] Facility Care Department Encounter ID Source 2025-06-11 08:43:00 2025-06-11 13:45:00 Emergency ER STEVIE GAMA [facility] [id number] [facility] 2025-06-11 08:43:00 2025-06-11 13:45:00 Departed Emergency Room [facility] [id number] [facility] 2025-06-10 19:01:00 2025-06-10 22:30:00 Emergency ER STEVIE GAMA [facility] [id number] [facility] 2025-06-10 19:01:00 2025-06-10 22:30:00 Departed Emergency Room [facility] [id number] [facility] 2023-03-20 10:34:00 2023-03-20 15:10:00 Emergency ER ART HALL [facility] [id number] [facility] 2019-08-02 15:47:00 2019-08-02 16:33:00 Emergency ER ULISES STEWART [facility] [id number] [facility] 2016-08-28 12:21:00 2016-08-28 12:21:00 Outpatient TJ CHUN [facility] [id number] [facility] 2016-07-31 12:06:00 2016-07-31 12:06:00 Outpatient TJ CHUN [facility] [id number] [facility] 2016-03-01 09:33:00 2016-03-01 09:33:00 Outpatient LAZARA GOVEA [facility] [id number] [facility] 2015-12-01 10:57:00 2015-12-01 10:57:00 Outpatient TJ CHUN [facility] [id number] [facility] Results Test Description Test Time Test Comments Results Result Co mments Source [facility] PrgQhleddxcu6461-56-92 10:28:00* Test Item Value Reference Range Interpretation Comme nts Methadone Level (test code = LMD2045) NEGATIVE [facility] CtrBenzodiazepines screen [id number] 10:28:00* Test Item Value Reference Range Interpretation Comme [facility] Urine Benzodiazepines Screen (test code = 237174567) NEGATIVE [facility] CtrCannabinoids (3-njdhfxf-KER) wykwbkesrut9907-14-17 10:28:00* Test Item Value Reference Range Interpretation Comme [facility] Urine Cannabinoids (test cod e = 044535025) NEGATIVE [facility] CtrCocaine metabolite gfhypw6334-21-39 10:28:00* Test Item Value Reference Range Interpretation Comme [facility] Urine Cocaine Metabolite (te st code = 936033899) POSITIVE [facility] CtrOpiates pkgar9282-61-74 10:28:00* Test Item Value Reference Range Interpretation Comme [facility] Urine Opiates Screen (test c ode = 082990678) NEGATIVE [facility] CtrUrine hydrocodone measurement (mass/volume) 2025-06-11 10:28:00* Test Item Value Reference Range Interpretation Comme nts Hydrocodone Level (test code = 3681-4) NEGATIVE [facility] CtrUrine fentanyl measurement (mass/volume)2025-06-11 10:28:00* Test Item Value Reference Range Interpretation Comme [facility] Urine Fentanyl Screen (test code = 3637-6) NEGATIVE [facility] CtrPhencyclidine (PCP) fu9622-26-18 10:28:00* Test Item Value Reference Range Interpretation Comme nts Urine Phencyclidine (PCP) Le fuad (test code = 294478275) NEGATIVE [facility] CtrPropoxyphene [Mass/volume] in Iwqcp7844-29-75 10:28:00* Test Item Value Reference Range Interpretation Comme nts Propoxyphene Level (test cod e = 3545-1) NEGATIVE [facility] CtroxyCODONE [Mass/volume] in Gnkbk2215-31-62 10:28:00* Test Item Value Reference Range Interpretation Comme nts Oxycodone Level (test code = 54258-5) NEGATIVE [facility] CtrSpecific gravity of Urine by Automated test strip 2025-06-11 10:26:00* Test Item Value Reference Range Interpretation Comme nts Urine Specific [place] (test code = 84454-9) 1.038 [facility] ZmvWdnpgi2844-50-20 10:23:00* Test Item Value Reference Range Interpretation Comme nts Lipase (test code = 673770623) 22 [facility] CtrRBC count ur iopc8795-62-59 10:19:00* Test Item Value Reference Range Interpretation Comme nts Urine RBC (test code = 798-9) 21-50 [facility] CtrUrine examination for white blood cells (WBC) 2025-06-11 10:19:00* Test Item Value Reference Range Interpretation Comme nts Urine WBC (test code = 086262568) 3-5 [facility] CtrAutomated epithelial cells count in urine sediment (number/area)2025-06-11 10:19:00* Test Item Value Reference Range Interpretation Comme nts Urine Epithelial Cells (test code = 15163-1) 3-5 [facility] CtrBacteria detection in urine sediment by light yepkkjuzjb0692-96-50 10:19:00* Test Item Value Reference Range Interpretation Comme nts Urine Bacteria (test code = 35101-8) None Seen [facility] CtrUrine casts detection by automated method 2025-06-11 10:19:00* Test Item Value Reference Range Interpretation Comme nts Urine Casts (test code = 59627-9) 11-20 [facility] CtrColor of Urine by Lkjc1462-24-72 10:17:00* Test Item Value Reference Range Interpretation Comme nts Urine Color (test code = 81459-8) Yellow [facility] CtrAppearance of Oenrx2394-80-92 10:17:00* Test Item Value Reference Range Interpretation Comme nts Urine Appearance (test code = 5767-9) Clear [facility] CtrUrine glucose xozierury9663-85-19 10:17:00* Test Item Value Reference Range Interpretation Comme nts Urine Glucose (UA) (test code = 2349-9) Trace [facility] CtrBilirubin vi9668-49-59 10:17:00* Test Item Value Reference Range Interpretation Comme nts Urine Bilirubin (test code = 888273197) Negative [facility] CtrKetones fv2604-57-92 10:17:00* Test Item Value Reference Range Interpretation Comme [facility] Urine Ketones (test code = 57525973) Negative [facility] CtrUrine blood qztetjnlv0111-25-62 10:17:00* Test Item Value Reference Range Interpretation Comme nts Urine Blood (test code = 120016-2) 1+ (SMALL) [facility] CtrpH tj1923-23-47 10:17:00* Test Item Value Reference Range Interpretation Comme nts Urine pH (test code = 2756-5) 6.500 [facility] CtrProtein hi5559-81-57 10:17:00* Test Item Value Reference Range Interpretation Comme nts Urine Protein (test code = 24456014) 4+ [facility] CtrUrobilinogen, urine, bd9360-47-40 10:17:00* Test Item Value Reference Range Interpretation Comme [facility] Urine Urobilinogen (test cod e = 063801675) 0.2 [facility] hxgupwkbo5576-06-56 10:17:00* Test Item Value Reference Range Interpretation Comme nts Urine Nitrate (test code = 28047-2) Negative [facility] esterase intuhbwvl9581-90-53 10:17:00* Test Item Value Reference Range Interpretation Comme nts Urine Leukocyte Esterase (te st code = 234560-2) Negative [facility] CtrAlcohol level, efjqt1850-44-93 09:58:00* Test Item Value Reference Range Interpretation Comme nts Ethyl Alcohol Level (test co de = 561140241) < 10.0 [facility] CtrBlood hemoglobin A1C measurement (mass/volume) 2025-06-11 09:52:00* Test Item Value Reference Range Interpretation Comme [facility] Hemoglobin A1c (test code = 19796-5) 5.7 [facility] CtrNT-proBNP hvolnhxhwnn9206-91-81 09:45:00* Test Item Value Reference Range Interpretation Comme [facility] SP-Yur-N-Type Natriuretic Pe ptide (test code = 472329788) 325 [facility] CtrSerum or plasma cardiac troponin I panel by high sensitivity krhaid6806-86-49 09:44:00* Test Item Value Reference Range Interpretation Comme [facility] Troponin T High Sensitivity (test code = 05083-6) 14.3 [facility] CtrBilirubin jshwi5920-61-01 09:42:00* Test Item Value Reference Range Interpretation Comme [facility] Total Bilirubin (test code = MLY2073) 0.2 [facility] CtrSerum or plasma urea nitrogen measurement (mass/volume)2025-06-11 09:42:00* Test Item Value Reference Range Interpretation Comme [facility] Blood Urea Nitrogen (test co de = 3094-0) 15 [facility] LjkTMB0585-96-59 09:42:00* Test Item Value Reference Range Interpretation Comme nts Aspartate Amino Transf (AST/ SGOT) (test code = SVQ2806) 10 [facility] CtrCreatinine qiait0541-81-55 09:42:00* Test Item Value Reference Range Interpretation Comme nts Creatinine (test code = 102209456) 0.80 [facility] CtrEstimated glomerular filtration rate (GFR) ugkzimaxajxoa8404-18-97 09:42:00* Test Item Value Reference Range Interpretation Comme [facility] Glomerular Filtration Rate C alc (test code = 045816765) > 60.00 [facility] CtrBUN/creatinine yuzev5836-97-70 09:42:00* Test Item Value Reference Range Interpretation Comme nts BUN/Creatinine Ratio (test c ode = 82643510) 18.8 [facility] CtrBody fluid potassium fwuqjuatvdd2150-85-87 09:42:00* Test Item Value Reference Range Interpretation Comme nts Potassium Level (test code = 2821-7) 4.0 [facility] NlfHI07053-54-06 09:42:00* Test Item Value Reference Range Interpretation Comme nts Carbon Dioxide Level (test c ode = 45343073) 26 [facility] CtrAnion gap vaunlbduidt7595-87-42 09:42:00* Test Item Value Reference Range Interpretation Comme nts Anion Gap (test code = 68075992) 12.0 [facility] CtrCalcium vzzzz5026-39-02 09:42:00* Test Item Value Reference Range Interpretation Comme nts Calcium Level (test code = 40826346) 8.2 [facility] BmfVxxdtxece1786-81-84 09:42:00* Test Item Value Reference Range Interpretation Comme nts Magnesium Level (test code = 32101613) 2.1 [facility] CtrGlobulin xhr3112-15-74 09:42:00* Test Item Value Reference Range Interpretation Comme nts Globulin (test code = 764494426) 3.1 [facility] CtrALT (SGPT) ser/lywc0847-42-33 09:42:00* Test Item Value Reference Range Interpretation Comme nts Alanine Aminotransferase (AL T/SGPT) (test code = 1742-6) 6 [facility] CtrAmylase hrqvi9972-61-31 09:42:00* Test Item Value Reference Range Interpretation Comme nts Amylase Level (test code = 1798-8) 43 [facility] CtrALP ser/buht0622-91-51 09:42:00* Test Item Value Reference Range Interpretation Comme nts Total Alkaline Phosphatase ( test code = 6768-6) 117 [facility] JuiUvyfsro0351-22-24 09:38:00* Test Item Value Reference Range Interpretation Comme nts Ammonia (test code = PUD1742) 16.1 [facility] CtrAbsolute eosinophil isuyz1924-02-39 09:21:00* Test Item Value Reference Range Interpretation Comme nts Eosinophils # (Auto) (test c ode = XAJ1791) 0.21 [facility] CtrRBC sqmby9908-89-69 09:21:00* Test Item Value Reference Range Interpretation Comme [facility] Red Blood Count (test code = 46464486) 4.64 [facility] YjjYkzwarqzsb9279-37-23 09:21:00* Test Item Value Reference Range Interpretation Comme [facility] Hematocrit (test code = 59448571) 44.6 [facility] CtrMCV (mean corpuscular volume) determination 2025-06-11 09:21:00* Test Item Value Reference Range Interpretation Comme [facility] Mean Corpuscular Volume (rowan t code = 55320-5) 96.1 [facility] CtrMean corpuscular hemoglobin (MCH) determination 2025-06-11 09:21:00* Test Item Value Reference Range Interpretation Comme [facility] Mean Corpuscular Hemoglobin (test code = 03343086) 31.0 [facility] hemoglobin concentration (MCHC) iipdggzsfzjvg6895-90-80 09:21:00* Test Item Value Reference Range Interpretation Comme [facility] Mean Corpuscular Hemoglobin Concent (test code = 78805338) 32.3 [facility] CtrRBC distribution width coefficient of variation 2025-06-11 09:21:00* Test Item Value Reference Range Interpretation Comme [facility] Red Cell Distribution Width (test code = 68276233) 11.9 [facility] CtrPlatelet zrhet0168-10-40 09:21:00* Test Item Value Reference Range Interpretation Comme [facility] Platelet Count (test code = 53741929) 342 [facility] CtrMean platelet wflgou4187-85-27 09:21:00* Test Item Value Reference Range Interpretation Comme [facility] Mean Platelet Volume (test c ode = 96741774) 8.9 [facility] CtrNeutrophils seg % fyx9835-68-20 09:21:00* Test Item Value Reference Range Interpretation Comme [facility] Neutrophils (%) (Auto) (test code = 03011-2) 61.2 [facility] CtrAbsolute immature granulocyte qgcaj7033-65-63 09:21:00* Test Item Value Reference Range Interpretation Comme nts Absolute Immature Granulocyt e (auto (test code = 65148-9) 0.01 [facility] CtrBasophil % funamo1155-83-06 09:21:00* Test Item Value Reference Range Interpretation Comme nts Basophils (%) (Auto) (test c ode = 19984-8) 0.5 [facility] CtrBlood band neutrophils count (number/volume) 2025-06-11 09:21:00* Test Item Value Reference Range Interpretation Comme nts Neutrophils # (Auto) (test c ode = 11885-3) 3.95 [facility] CtrAbsolute lymphocyte omfcg1339-06-12 09:21:00* Test Item Value Reference Range Interpretation Comme nts Lymphocytes # (Auto) (test c ode = 15191-8) 1.83 [facility] CtrAbsolute basophil wrhto7414-14-80 09:21:00* Test Item Value Reference Range Interpretation Comme nts Basophils # (Auto) (test cod e = 21809964) 0.03 [facility] CtrAbsolute NRBC gwnay3565-28-37 09:21:00* Test Item Value Reference Range Interpretation Comme nts Nucleated Red Blood Cells # (test code = 970521488) 0 [facility] CtrAdenovirus Ab [Presence] in Lmoakpvn0338-14-59 20:19:00* Test Item Value Reference Range Interpretation Comme [facility] Nasopharyngeal Adenovirus PC R (test code = 05778-6) Not detected [facility] antigen detection by bsfazlprfhhkqacngb1871-06-73 20:19:00* Test Item Value Reference Range Interpretation Comme nts Nasopharyngeal Coronavirus 2 29E PCR (test code = 47510-0) Not detected [facility] CtrCoronavirus HKU1 RNA assay by GRC5159-24-75 20:19:00* Test Item Value Reference Range Interpretation Comme nts Nasopharyngeal Coronavirus H KU1 PCR (test code = 30963-8) Not detected [facility] CtrCoronavirus NL63 RNA assay by BFB7401-89-68 20:19:00* Test Item Value Reference Range Interpretation Comme nts Nasopharyngeal Coronavirus N L63 PCR (test code = 81793-4) Not detected [facility] coronavirus OC43 antigen detection by hqdktamqbfbpsqgwft0818-84-90 20:19:00* Test Item Value Reference Range Interpretation Comme nts Nasopharyngeal Coronavirus O C43 PCR (test code = 51588-1) Not detected [facility] coronavirus RNA [Presence] in Specimen by URIEL with probe bpivngkwr6123-92-57 20:19:00* Test Item Value Reference Range Interpretation Comme nts Nasopharyngeal SARS-CoV-2 PC R (test code = 73573-2) Not detected [facility] Hospital[facility] metapneumovirus detection by NMH9614-23-66 20:19:00* Test Item Value Reference Range Interpretation Comme nts Nasophryn Human Metapneumovi amelia PCR (test code = 16108-3) Not detected [facility] CtrRespiratory specimen human rhinovirus 1 and 2 RNA detection by probe and target amplification nzggyn8757-07-34 20:19:00* Test Item Value Reference Range Interpretation Comme nts Nasopharyn Human Rhino/Enterovirus (test code = 605388-9) Not detected [facility] CtrInfluenza virus A Ag [Presence] in Specimen 2025-06-10 20:19:00* Test Item Value Reference Range Interpretation Comme [facility] Nasopharyngeal Influenza Typ e A PCR (test code = 33297-4) Not detected [facility] CtrInfluenza virus B Ab [Units/volume] in Specimen 2025-06-10 20:19:00* Test Item Value Reference Range Interpretation Comme [facility] Nasopharyngeal Influenza B ( PCR) (test code = 43592-5) Not detected [facility] CtrNasopharyngeal specimen parainfluenza virus type 1 RNA detection by probe and target amplification glzbed2377-77-30 20:19:00* Test Item Value Reference Range Interpretation Comme nts Nasopharyngeal Parainfluenza 1 PCR (test code = 33081-4) Not detected [facility] CtrParainfluenza virus 2 RNA [Presence] in Specimen by URIEL with probe nfnrdkkcs1126-11-60 20:19:00* Test Item Value Reference Range Interpretation Comme nts Nasopharyngeal Parainfluenza 2 PCR (test code = 87377-0) Not detected [facility] CtrParainfluenza virus 3 RNA [Presence] in Specimen by URIEL with probe ltbyfizba7070-86-71 20:19:00* Test Item Value Reference Range Interpretation Comme nts Nasopharyngeal Parainfluenza 3 PCR (test code = 15884-8) Not detected [facility] CtrParainfluenza uqqxh6495-81-87 20:19:00* Test Item Value Reference Range Interpretation Comme nts Nasopharyngeal Parainfluenza 4 PCR (test code = 92789-9) Not detected [facility] CtrRapid respiratory syncytial virus (RSV) antigen kyttthbfy1730-39-43 20:19:00* Test Item Value Reference Range Interpretation Comme nts Nasophr Respiratory Syncytia l Virus (test code = 95277-4) Not detected [facility] CtrBordetella parapertussis le7736-16-08 20:19:00* Test Item Value Reference Range Interpretation Comme nts Nasopharyn Bordetella parapertussis (test code = 90238-6) Not detected [facility] CtrBordetella pertussis Ab [Presence] in Specimen 2025-06-10 20:19:00* Test Item Value Reference Range Interpretation Comme nts Nasopharyngeal Bordetella pertussis (test code = 46850-0) Not detected [facility] CtrChlamydia pneumoniae ymzbchs0910-54-13 20:19:00* Test Item Value Reference Range Interpretation Comme nts Nasopharyngeal Chlamydia pneumoniae (test code = 06307-4) Not detected [facility] CtrSerum Mycoplasma pneumoniae antibody assay on first specimen (units/volume)2025-06-10 20:19:00* Test Item Value Reference Range Interpretation Comme nts Nasopharyngal Mycoplasma pneumoniae (test code = 92159-3) Not detected [facility] CtrAdenovirus Ab [Presence] in Rvuzrubr9761-16-76 20:19:00* Test Item Value Reference Range Interpretation Comme nts Nasopharyngeal Adenovirus PC R (test code = 30592-2) Not detected [facility] CtrHuman coronavirus antigen detection by okgsnbqjqcbjtplmrh0359-34-85 20:19:00* Test Item Value Reference Range Interpretation Comme nts Nasopharyngeal Coronavirus 2 29E PCR (test code = 99128-3) Not detected [facility] CtrCoronavirus HKU1 RNA assay by AFL9124-52-76 20:19:00* Test Item Value Reference Range Interpretation Comme nts Nasopharyngeal Coronavirus H KU1 PCR (test code = 19878-2) Not detected [facility] NL63 RNA assay by RBS2172-78-07 20:19:00* Test Item Value Reference Range Interpretation Comme nts Nasopharyngeal Coronavirus N L63 PCR (test code = 57873-4) Not detected [facility] coronavirus OC43 antigen detection by segcwsipvbcpostinp0086-30-82 20:19:00* Test Item Value Reference Range Interpretation Comme nts Nasopharyngeal Coronavirus O C43 PCR (test code = 81597-6) Not detected [facility] coronavirus RNA [Presence] in Specimen by URIEL with probe ajazucbgy4121-57-77 20:19:00* Test Item Value Reference Range Interpretation Comme nts Nasopharyngeal SARS-CoV-2 PC R (test code = 41187-0) Not detected [facility] metapneumovirus detection by VHD9516-11-46 20:19:00* Test Item Value Reference Range Interpretation Comme nts Nasophryn Human Metapneumovi amelia PCR (test code = 21244-1) Not detected [facility] CtrRespiratory specimen human rhinovirus 1 and 2 RNA detection by probe and target amplification uzppzd2114-01-31 20:19:00* Test Item Value Reference Range Interpretation Comme nts Nasopharyn Human Rhino/Enterovirus (test code = 331738-4) Not detected [facility] CtrInfluenza virus A Ag [Presence] in Specimen 2025-06-10 20:19:00* Test Item Value Reference Range Interpretation Comme nts Nasopharyngeal Influenza Typ e A PCR (test code = 44236-4) Not detected [facility] CtrInfluenza virus B Ab [Units/volume] in Specimen 2025-06-10 20:19:00* Test Item Value Reference Range Interpretation Comme nts Nasopharyngeal Influenza B ( PCR) (test code = 28240-6) Not detected [facility] CtrNasopharyngeal specimen parainfluenza virus type 1 RNA detection by probe and target amplification xpiwfh5968-11-37 20:19:00* Test Item Value Reference Range Interpretation Comme nts Nasopharyngeal Parainfluenza 1 PCR (test code = 51355-2) Not detected [facility] CtrParainfluenza virus 2 RNA [Presence] in Specimen by URIEL with probe [id number] 20:19:00* Test Item Value Reference Range Interpretation Comme nts Nasopharyngeal Parainfluenza 2 PCR (test code = 07773-0) Not detected [facility] CtrParainfluenza virus 3 RNA [Presence] in Specimen by URIEL with probe [id number] 20:19:00* Test Item Value Reference Range Interpretation Comme nts Nasopharyngeal Parainfluenza 3 PCR (test code = 87971-8) Not detected [facility] CtrParainfluenza [id number] 20:19:00* Test Item Value Reference Range Interpretation Comme nts Nasopharyngeal Parainfluenza 4 PCR (test code = 98644-3) Not detected [facility] CtrRapid respiratory syncytial virus (RSV) antigen rkrastlhq9823-79-98 20:19:00* Test Item Value Reference Range Interpretation Comme nts Nasophr Respiratory Syncytia l Virus (test code = 75334-5) Not detected [facility] CtrBordetella parapertussis [id number] 20:19:00* Test Item Value Reference Range Interpretation Comme nts Nasopharyn Bordetella parapertussis (test code = 46950-5) Not detected [facility] CtrBordetella pertussis Ab [Presence] in Specimen 2025-06-10 20:19:00* Test Item Value Reference Range Interpretation Comme nts Nasopharyngeal Bordetella pertussis (test code = 06254-6) Not detected [facility] CtrChlamydia pneumoniae [id number] 20:19:00* Test Item Value Reference Range Interpretation Comme nts Nasopharyngeal Chlamydia pneumoniae (test code = 26031-3) Not detected [facility] CtrSerum Mycoplasma pneumoniae antibody assay on first specimen (units/volume)2025-06-10 20:19:00* Test Item Value Reference Range Interpretation Comme nts Nasopharyngal Mycoplasma pneumoniae (test code = 72235-3) Not detected [facility] CtrNT-proBNP juiiunsxudm3533-37-28 19:52:00* Test Item Value Reference Range Interpretation Comme nts YM-Rgf-Y-Type Natriuretic Pe ptide (test code = 572970028) 281 [facility] CtrSerum or plasma cardiac troponin I panel by high sensitivity [id number] 19:51:00* Test Item Value Reference Range Interpretation Comme nts Troponin T High Sensitivity (test code = 59798-6) 16.4 [facility] GyqAabceqw5086-99-03 19:50:00* Test Item Value Reference Range Interpretation Comme nts Ammonia (test code = LBV3154) 39.2 [facility] CtrAlcohol level, pkxlw1308-47-59 19:50:00* Test Item Value Reference Range Interpretation Comme nts Ethyl Alcohol Level (test co de = 543588623) < 10.0 [facility] CtrBilirubin [id number] 19:46:00* Test Item Value Reference Range Interpretation Comme nts Total Bilirubin (test code = SEE7511) < 0.2 [facility] CtrSerum or plasma urea nitrogen measurement (mass/volume)2025-06-10 19:46:00* Test Item Value Reference Range Interpretation Comme nts Blood Urea Nitrogen (test co de = 3094-0) 16 [facility] VyfFMV4268-57-38 19:46:00* Test Item Value Reference Range Interpretation Comme nts Aspartate Amino Transf (AST/ SGOT) (test code = UUW5917) 10 [facility] CtrCreatinine jxrvs4974-78-24 19:46:00* Test Item Value Reference Range Interpretation Comme nts Creatinine (test code = 998737233) 0.93 [facility] CtrEstimated glomerular filtration rate (GFR) pnesdgsnrchtq6347-30-31 19:46:00* Test Item Value Reference Range Interpretation Comme nts Glomerular Filtration Rate C alc (test code = 451316776) > 60.00 [facility] CtrBUN/creatinine dhydl1198-66-25 19:46:00* Test Item Value Reference Range Interpretation Comme nts BUN/Creatinine Ratio (test c ode = 89763196) 17.2 [facility] CtrBody fluid potassium ozsgmpppdtz4618-81-85 19:46:00* Test Item Value Reference Range Interpretation Comme nts Potassium Level (test code = 2821-7) 3.6 [facility] QblNO09393-86-54 19:46:00* Test Item Value Reference Range Interpretation Comme nts Carbon Dioxide Level (test c ode = 74977104) 25 [facility] CtrAnion gap jrmjerfwipx3805-29-86 19:46:00* Test Item Value Reference Range Interpretation Comme nts Anion Gap (test code = 43047716) 13.6 [facility] CtrCalcium zkerq5583-86-89 19:46:00* Test Item Value Reference Range Interpretation Comme nts Calcium Level (test code = 89674147) 8.1 [facility] GrhMdbzjryzi6644-75-34 19:46:00* Test Item Value Reference Range Interpretation Comme nts Magnesium Level (test code = 75301080) 2.0 [facility] CtrGlobulin ytf5268-56-32 19:46:00* Test Item Value Reference Range Interpretation Comme nts Globulin (test code = 304604583) 2.8 [facility] CtrALT (SGPT) ser/kxki3724-01-46 19:46:00* Test Item Value Reference Range Interpretation Comme nts Alanine Aminotransferase (AL T/SGPT) (test code = 1742-6) 7 [facility] CtrAmylase ngbit5664-53-14 19:46:00* Test Item Value Reference Range Interpretation Comme nts Amylase Level (test code = 1798-8) 46 [facility] UxxRhtomb0244-14-67 19:46:00* Test Item Value Reference Range Interpretation Comme nts Lipase (test code = 897221999) 29 [facility] CtrALP ser/fyds2953-52-66 19:46:00* Test Item Value Reference Range Interpretation Comme nts Total Alkaline Phosphatase ( test code = 6768-6) 115 [facility] (MCHC) rejtjxwnmhesx6263-90-49 19:20:00* Test Item Value Reference Range Interpretation Comme [facility] Mean Corpuscular Hemoglobin Concent (test code = 61644344) 33.0 [facility] CtrRBC distribution width coefficient of variation 2025-06-10 19:20:00* Test Item Value Reference Range Interpretation Comme [facility] Red Cell Distribution Width (test code = 97014244) 12.0 [facility] CtrPlatelet rhevu7468-15-19 19:20:00* Test Item Value Reference Range Interpretation Comme [facility] Platelet Count (test code = 91664932) 366 [facility] CtrMean platelet tkutdz9793-73-34 19:20:00* Test Item Value Reference Range Interpretation Comme nts Mean Platelet Volume (test c ode = 05997072) 8.9 [facility] CtrNeutrophils seg % bkl8441-82-22 19:20:00* Test Item Value Reference Range Interpretation Comme nts Neutrophils (%) (Auto) (test code = 08080-5) 67.8 [facility] CtrAbsolute immature granulocyte fbzaf9422-85-45 19:20:00* Test Item Value Reference Range Interpretation Comme nts Absolute Immature Granulocyt e (auto (test code = 10862-1) 0.01 [facility] CtrBasophil % [id number] 19:20:00* Test Item Value Reference Range Interpretation Comme nts Basophils (%) (Auto) (test c ode = 94031-8) 0.5 [facility] CtrBlood band neutrophils count (number/volume) 2025-06-10 19:20:00* Test Item Value Reference Range Interpretation Comme nts Neutrophils # (Auto) (test c ode = 06181-8) 4.01 [facility] CtrAbsolute lymphocyte glkzn5983-21-06 19:20:00* Test Item Value Reference Range Interpretation Comme nts Lymphocytes # (Auto) (test c ode = 51821-2) 1.28 [facility] CtrAbsolute basophil kvkuj3627-90-12 19:20:00* Test Item Value Reference Range Interpretation Comme nts Basophils # (Auto) (test cod e = 14445231) 0.03 [facility] CtrAbsolute NRBC uwprf2894-95-94 19:20:00* Test Item Value Reference Range Interpretation Comme nts Nucleated Red Blood Cells # (test code = 162437103) 0 [facility] CtrAbsolute eosinophil [id number] 19:20:00* Test Item Value Reference Range Interpretation Comme nts Eosinophils # (Auto) (test c ode = ALK1126) 0.15 [facility] CtrRBC azfnz9061-36-97 19:20:00* Test Item Value Reference Range Interpretation Comme nts Red Blood Count (test code = 42681969) 4.30 [facility] MueYryilxjlss3629-51-62 19:20:00* Test Item Value Reference Range Interpretation Comme nts Hematocrit (test code = 26058914) 40.3 [facility] CtrMCV (mean corpuscular volume) determination 2025-06-10 19:20:00* Test Item Value Reference Range Interpretation Comme nts Mean Corpuscular Volume (rowan t code = 92478-7) 93.7 [facility] CtrMean corpuscular hemoglobin (MCH) determination 2025-06-10 19:20:00* Test Item Value Reference Range Interpretation Comme nts Mean Corpuscular Hemoglobin (test code = 14933775) 30.9 [facility] Ctr Notes <thead> Date/Time Note Provider Source [facility] [id number] 13:48:24 Future Tests Future scheduled test information is unavailable Pending Tests <thead> Test Name Ordered Date Scheduled Date Urine Color June 10, 2025 7:04pm Urine Appearance June 10, 2025 7:04pm Urine Glucose (UA) June 10, 2025 7:04pm Urine Bilirubin June 10, 2025 7:04pm Urine Ketones June 10, 2025 7:04pm Urine Specific [place] June 10, 2025 7:04p m Urine Blood [...] Information Provider Address [place] Work Phone: [place] [phone] NO PHYSICIAN NO PHYSICIAN NO PHYSICIAN Future [...] is unavailable Patient Instructions <tbody> Dental Abscess, Nqat-rb-Awbr Community-Acquired Pneumonia , Adult, Nfms-zd-Qbtl Dehydration, Adult, Easy-to- Read Viral Illness, Adult Cocaine Use Disorder Hypertension, Adult, Easy-to -Read [facility] Vae1426-74-13 22:47:33 Patient Care Team <thead> Team Status: Active Member Role Status Dates . NO PHYSICIAN primary care physician Active STEVIE GAMA MD Emergency Provider Active JAILYN HILTON Next of Kin Active JAILYN CORNELIUSIAN Emergency Contact Active [facility] Qne1847-41-32 22:47:33 Future Tests Future scheduled test information is unavailable Pending Tests <thead> Test Name Ordered Date Scheduled Date Urine Color June 10, 2025 7:04pm Urine Appearance June 10, 2025 7:04pm Urine Glucose (UA) June 10, 2025 7:04pm Urine Bilirubin June 10, 2025 7:04pm Urine Ketones June 10, 2025 7:04pm Urine Specific [place] June 10, 2025 7:04p m Urine Blood [...] Information Provider Address [place] Work Phone: [address] [phone] NO PHYSICIAN NO PHYSICIAN Future Procedures <thead> Procedure Name Ordered Date Scheduled Date URINALYSIS June 10, 2025 7:06pm Junie roque 2024 7:04pm URINE DRUG SCREEN June 10, 2025 7:06pm Sep tember 2024 7:04pm Future Medications Future medication information is unavailable Patient Instructions <tbody> Dental Abscess, Hfbw-bu-Vwti Community-Acquired Pneumonia , Adult, Uvoi-rj-Nghq Dehydration, Adult, Easy-to- Read Viral Illness, Adult [facility]
[2025-07-04 14:14] LABS: Absolute Lymphocytes (CBC) 1.4 K/uL (0.7-4.9); Hematocrit 37.5 % (39.6-49.0); Hemoglobin 12.8 g/dL (13.6-17.9); MCH 31.4 pg (27.0-35.0); MCHC 34.2 g/dL (32.0-36.0); MCV 91.8 fL (80-100); MPV 6.7 fL (7.6-11.3); Nucleated RBC Absolute Count 0.0 (0-0); Nucleated Red Blood Cells % 0.0 % (0-0); RBC Red Blood Cell Count 4.09 M/uL (4.33-5.43); White Blood Count 11.20 thou/uL (4.3-10.9)
[2025-07-04] MEDS ORDERED: FUROSEMIDE 40 MG/4 ML VIAL ONE (14:15)
[2025-07-04 14:20] LABS: PT Prothrombin Time 11.5 SECONDS (10-13.0); Protime INR 1.02
--- NOTE | 2025-07-04 14:25 | RAD REPORT ---
EXAMINATION: ONE VIEW CHEST XR CLINICAL INDICATION: Male, 64 years old.,DYSPNEA TECHNIQUE: Frontal chest projection is submitted. Examination is limited by patient positioning and t echnique. COMPARISON: 07/02/2025. FINDINGS: The lungs are grossly clear although suboptimal inspiratory effort somewhat limits evaluation. No pn eumothorax or sizable effusion. The heart is normal in size. Mediastinal contours are unremarkable. IMPRESSION: No acute intrathoracic abnormalities.
[2025-07-04 14:38] LABS: ALT/SGPT 22 U/L (16-61); AST/SGOT < 10 U/L (15-37); Alkaline Phosphatase 101 U/L (45-117); Anion Gap 8.8 mEq/L (5.0-15.0); BUN Blood Urea Nitrogen 26 mg/dL (7-18); Bilirubin Indirect, Calculated 0.0 mg/dL (0.2-0.8); Glucose Level 136 mg/dL (74-106); Magnesium 2.2 mg/dL (1.6-2.4); NT PRO-BNP 268 pg/mL (<125); Potassium 3.8 mEq/L (3.5-5.1); Troponin High Sensitivity 8.2 pg/mL (<58.9)
[2025-07-04 14:39] LABS: Albumin < 0.9 g/dL (3.4-5.0); Albumin/Globulin Ratio ND (1.1-1.8); Globulin 3.1 g/dL (2.3-3.5)
--- NOTE | 2025-07-04 14:47 | ER ---
Nurse's Notes [facility] Name: Yohannes Velazquez Age: 64 yrs Sex: Male : 1960 Arrival Date: 07/04/2025 Time: 12:55 Bed 19 Private MD: Diagnosis: Peripheral edema, hypoalbuminemia, hypocalcemia Presentation: 07/04 12:59 Chief complaint: Patient states: Pt BIB EMS from [facility] due to fluid retention jp5 and SOB for 1 week. Pt was just seen here 2 days ago for same issue. Pt does not have PCP. Coronavirus screen: Client denies travel out of the [place] in the last 14 days. At this time, the client does not indicate any symptoms associated with coronavirus-19. Ebola Screen: No symptoms or risks identified at this time. Initial Sepsis Screen: Does the patient meet any 2 criteria? No. Patient's initial sepsis screen is negative. Does the patient have a suspected source of infection? No. Patient's initial sepsis screen is negative. Risk Assessment: Do you want to hurt yourself or someone else? Patient reports no desire to harm self or others. 12:59 Method Of Arrival: EMS: [facility] 5 12:59 Acuity: BREA 3 jp5 17:00 Onset of symptoms was June 27, 2025. ll1 Triage Assessment: 13:02 General: Appears uncomfortable, unkempt, Behavior is calm, cooperative, appropriate for jp5 age. Pain: Denies pain. Neuro: No deficits noted. Level of Consciousness is awake, alert, obeys commands, Oriented to person, place, time, situation, Appropriate for age. Respiratory: Reports shortness of breath at rest on exertion Onset: The symptoms/episode began/occurred 1 WEEK, the patient has mild shortness of breath. Historical: - Allergies: 14:56 No Known Allergies; jp5 - PMHx: 13:02 Pneumonia; jp5 - PSHx: 13:02 Appendectomy; Cholecystectomy; laminectomy; jp5 - Immunization history:: Adult Immunizations not up to date. - Infectious Disease History:: Denies. - Social history:: Smoking status: Patient reports the use of cigarette tobacco products, smokes one-half pack cigarettes per day. Screenin:04 [facility] ED Fall Risk Assessment (Adult) History of falling in the last 3 months, jp5 including since admission No falls in past 3 months (0 pts) Confusion or Disorientation No (0 pts) Intoxicated or Sedated No (0 pts) Impaired Gait No (0 pts) Mobility Assist Device Used No (0 pt) Altered Elimination No (0 pt) Score/Fall Risk Level 0 - 2 = Low Risk Oriented to surroundings, Maintained a safe environment, Educated pt \T\ family on fall prevention, incl call for assistance when getting out of bed, Assessed \T\ reinforced patient's understanding of fall precautions, Provided non-skid footwear, Hourly rounding (assess needs \T\ fall precautionary measures) done, Used ambulatory aids as needed (educated on \T\ assisted with), Used gait belt as appropriate. Abuse screen: Denies threats or abuse. Denies injuries from another. Nutritional screening: No deficits noted. Tuberculosis screening: No symptoms or risk factors identified. Assessment: 13:05 Cardiovascular: No deficits noted. Rhythm is regular. Respiratory: Airway is patent jp5 Respiratory effort is labored, Breath sounds are diminished bilaterally. 13:05 Cardiovascular: Edema pitting to right upper arm, right elbow, right forearm, right jp5 wrist, right hand, right fingers, left midcalf, left ankle, left foot, left upper arm, left elbow, left forearm, left wrist, left hand, left fingers, right midcalf, right ankle and right foot. 14:05 Reassessment: Patient appears in no apparent distress at this time. Patient and/or 5 family updated on plan of care and expected duration. Pain level reassessed. Patient is alert, oriented x 3, equal unlabored respirations, skin warm/dry/pink. Patient states feeling better. 15:05 Reassessment: Patient appears in no apparent distress at this time. No changes from 5 previously documented assessment. Patient and/or family updated on plan of care and expected duration. Pain level reassessed. Patient is alert, oriented x 3, equal unlabored respirations, skin warm/dry/pink. 16:05 Reassessment: Patient appears in no apparent distress at this time. No changes from jp5 previously documented assessment. Patient and/or family updated on plan of care and expected duration. Pain level reassessed. Patient is alert, oriented x 3, equal unlabored respirations, skin warm/dry/pink. 17:05 Reassessment: Patient appears in no apparent distress at this time. No changes from jp5 previously documented assessment. Patient and/or family updated on plan of care and expected duration. Pain level reassessed. Patient is alert, oriented x 3, equal unlabored respirations, skin warm/dry/pink. Patient denies pain at this time. 17:06 Reassessment: Patient and/or family updated on plan of care and expected duration. Pain ll1 level reassessed. Vital Signs: 12:59 BP 168 / 82; Pulse 97; Resp 22; Temp 98(O); Pulse Ox 98% on R/A; jp5 14:00 BP 133 / 88; Pulse 82; Resp 22; Pulse Ox 96% on R/A; jp5 15:00 BP 118 / 91; Pulse 80; Resp 20; Pulse Ox 100% on R/A; jp5 16:00 BP 116 / 94; Pulse 78; Resp 22; Pulse Ox 98% on R/A; Pain 0/10; jp5 17:00 BP 130 / 70; Pulse 79; Resp 20; Temp 98(O); Pulse Ox 97% on R/A; jp5 16:00 Pain Scale: Adult 5 ED Course: 12:58 Patient arrived in ED. jp5 12:59 Jr Prado MD is Attending Physician. sp3 13:01 Triage completed. jp5 13:02 Arm band placed on right wrist. jp5 13:04 Patient has correct armband on for positive identification. Bed in low position. Call jp5 light in reach. Side rails up X 1. Provided Education on: CALL LIGHT USE. 13:04 No provider procedures requiring assistance completed. jp5 13:05 direct of real estate on. Pulse ox on. NIBP on. Warm blanket given. jp5 13:14 Missed attempt(s): 22 gauge in right antecubital area. Bleeding controlled, band aid pm7 applied, catheter tip intact. 13:15 Ivonne Fajardo, RN is Primary Nurse. jp5 13:16 Basic Metabolic Panel Sent. jp5 13:16 CBC with Diff Sent. jp5 13:16 Magnesium Sent. jp5 13:16 PT-INR Sent. jp5 13:16 Troponin HS Sent. jp5 13:16 NT PRO-BNP Sent. jp5 13:16 LFT's Sent. jp5 13:43 XRAY Chest (1 view) In Process Unspecified. EDMS 14:00 Inserted saline lock: 20 gauge in left forearm, using aseptic technique. ,using aseptic jp5 technique. STARTED WITH US AFTER 3 FAILED ATTEMPTS. Blood collected. Flushed with 10 mL NS Accessed. 14:04 Basic Metabolic Panel Sent. jp5 14:04 CBC with Diff Sent. jp5 14:04 LFT's Sent. jp5 14:04 NT PRO-BNP Sent. jp5 14:04 PT-INR Sent. jp5 14:04 Troponin HS Sent. jp5 14:46 Kye Germain MD is Hospitalizing Provider. sp3 14:48 EKG done, by ED staff, reviewed by Jr Prado MD. jp5 15:15 consent for albumin obtained and placed in chart. jp5 17:00 Patient admitted, IV remains in place. ll1 Administered Medications: 14:15 Drug: Furosemide IVP 40 mg IVP once; give over 2 minutes Route: IVP; Site: left femoral;jp5 15:12 Drug: Albumin IVPB 25 grams 100 ml IVPB once; (Note: Albumin 25% concentration) Volume: jp5 100 ml; Route: IVPB; Site: left forearm; 15:58 Follow up: IV Status: Completed infusion; IV Intake: 100ml jp5 16:01 Drug: Calcium Gluconate IVPB 1 grams IVPB once over 60 mins; (mix in NS 100 mL) Route: jp5 IVPB; Infused Over: 60 mins; Site: left forearm; 17:01 Follow up: IV Status: Completed infusion; IV Intake: 50ml jp5 Medication: 13:04 VIS not applicable for this client. jp5 Intake: 15:58 IV: 100ml; Total: 100ml. jp5 17:01 IV: 50ml; Total: 150ml. jp5 Outcome: 14:46 Decision to Hospitalize by Provider. sp3 16:59 Admitted to Med/surg accompanied by tech, via wheelchair, room 218, with chart, Report ll1 called to tubed to 2nd floor 16:59 Condition: stable 16:59 Instructed on the need for admit, 17:31 Patient left the ED. jp5 Signatures: Dispatcher [employer] EDWV Dale De Jesus RN RN ll1 Jr Prado MD MD sp3 Ivonne Fajardo RN RN jp5 Aquino, Laura pm7
--- NOTE | 2025-07-04 14:47 | EDPHYS ---
Physician Documentation [facility] Name: Yohannes Velazquez Age: 64 yrs Sex: Male : 1960 Arrival Date: 07/04/2025 Time: 12:55 Bed 19 Private MD: ED Physician Jr Prado HPI: 07/04 13:11 This 64 yrs old Male presents to ER via EMS with complaints of Shortness Of Breath. sp3 13:15 64-year-old male with history of pneumonia and multiple recent visits for peripheral sp3 edema now presents to the ED for recurrent shortness of breath, and peripheral edema in all 4 extremities. No documented history of CHF, coronary artery disease or other abnormality. He denies any ongoing chest pain, back pain, anginal equivalents abdominal pain, vomiting, diarrhea, fever, or any other signs or symptoms on ROS at this time.. Historical: - Allergies: 14:56 No Known Allergies; jp5 - PMHx: 13:02 Pneumonia; jp5 - PSHx: 13:02 Appendectomy; Cholecystectomy; laminectomy; jp5 - Immunization history:: Adult Immunizations not up to date. - Infectious Disease History:: Denies. - Social history:: Smoking status: Patient reports the use of cigarette tobacco products, smokes one-half pack cigarettes per day. ROS: 13:17 Constitutional: Negative for fever, chills, and weight loss, Eyes: Negative for injury, sp3 pain, redness, and discharge, ENT: Negative for injury, pain, and discharge, Neck: Negative for injury, pain, and swelling, Abdomen/GI: Negative for abdominal pain, nausea, vomiting, diarrhea, and constipation, Back: Negative for injury and pain, Skin: Negative for injury, rash, and discoloration, Neuro: Negative for headache, weakness, numbness, tingling, and seizure, Psych: Negative for depression, anxiety, suicide ideation, homicidal ideation, and hallucinations, Allergy/Immunology: Negative for hives, rash, and allergies, Endocrine: Negative for neck swelling, polydipsia, polyuria, polyphagia, and marked weight changes, 13:17 All other systems are negative, Exam: 13:17 Constitutional: This is a well developed, well nourished patient who is awake, alert, sp3 and in no acute distress. Head/Face: Normocephalic, atraumatic. Eyes: Pupils equal round and reactive to light, extra-ocular motions intact. Lids and lashes normal. Conjunctiva and sclera are non-icteric and not injected. Cornea within normal limits. Periorbital areas with no swelling, redness, or edema. ENT: Nares patent. No nasal discharge, no septal abnormalities noted. External auditory canals are clear. Oropharynx with no redness, swelling, or masses, exudates, or evidence of obstruction, uvula midline. Mucous membranes moist. Neck: Trachea midline, no thyromegaly or masses palpated, and no cervical lymphadenopathy. Supple, full range of motion without nuchal rigidity, or vertebral point tenderness. No Meningismus. Chest/axilla: Normal chest wall appearance and motion. Nontender with no deformity. No lesions are appreciated. Cardiovascular: Regular rate and rhythm with a normal S1 and S2. No gallops, murmurs, or rubs. Normal PMI, no JVD. No pulse deficits. Respiratory: Lungs have equal breath sounds bilaterally, clear to auscultation and percussion. No rales, rhonchi or wheezes noted. No increased work of breathing, no retractions or nasal flaring. Abdomen/GI: Soft, non-tender, with normal bowel sounds. No distension or tympany. No guarding or rebound. No evidence of tenderness throughout. Back: No spinal tenderness. No costovertebral tenderness. Full range of motion. Neuro: Awake and alert, GCS 15, oriented to person, place, time, and situation. Cranial nerves II-XII grossly intact. Motor strength 5/5 in all extremities. Sensory grossly intact. Cerebellar exam normal. Normal gait. 13:17 Musculoskeletal/extremity: 3+ edema noted mildly pitting all 4 extremities. 14:51 ECG was reviewed by the Attending Physician. EKG demonstrates normal sinus rhythm at 81 sp3 bpm with normal intervals, normal QRS, leftward axis and nonspecific diffuse ST/T changes without evidence of acute ischemia. Vital Signs: 12:59 BP 168 / 82; Pulse 97; Resp 22; Temp 98(O); Pulse Ox 98% on R/A; jp5 14:00 BP 133 / 88; Pulse 82; Resp 22; Pulse Ox 96% on R/A; jp5 15:00 BP 118 / 91; Pulse 80; Resp 20; Pulse Ox 100% on R/A; jp5 16:00 BP 116 / 94; Pulse 78; Resp 22; Pulse Ox 98% on R/A; Pain 0/10; jp5 17:00 BP 130 / 70; Pulse 79; Resp 20; Temp 98(O); Pulse Ox 97% on R/A; jp5 16:00 Pain Scale: Adult jp5 MDM: 13:00 Medical Screening Exam initiated sp3 13:18 Data reviewed: vital signs, nurses notes, old medical records, lab test result(s), EKG, sp3 radiologic studies. ED course: 64-year-old male with peripheral edema and shortness of breath. Differential diagnosis includes pneumonia, electrolyte abnormality, kidney disease, new onset CHF, pulmonary edema, among others. Workup will include chest x-ray, EKG, standard labs and Lasix 40 mg IV. Disposition pending workup and patient course.. 14:46 ED course: Calcium and albumin noted to be low. We are replacing the albumin and sp3 patient will be placed in observation for diuresis.. 07/04 13:00 Order name: Basic Metabolic Panel; Complete Time: 14:44 3 07/04 13:00 Order name: CBC with Diff; Complete Time: 14:28 3 07/04 13:00 Order name: LFT's; Complete Time: 14:44 3 07/04 13:00 Order name: Magnesium; Complete Time: 14:44 3 07/04 13:00 Order name: NT PRO-BNP; Complete Time: 14:44 3 07/04 13:00 Order name: PT-INR; Complete Time: 14:28 3 07/04 13:00 Order name: Troponin HS; Complete Time: 14:44 3 07/04 14:41 Order name: Albumin 3 07/04 14:51 Order name: PT-INR [facility] 07/04 15:01 Order name: Ur Protein EDMS 07/04 15:01 Order name: Urine Dipstick Only EDMS 07/04 15:39 Order name: CBC with Automated Diff EDMS 07/04 15:39 Order name: CBC with Automated Diff EDMS 07/04 15:39 Order name: CBC with Automated Diff EDMS 07/04 15:39 Order name: CBC with Automated Diff EDMS 07/04 15:39 Order name: CBC with Automated Diff EDMS 07/04 15:39 Order name: Comprehensive Metabolic Panel EDMS 07/04 15:39 Order name: Comprehensive Metabolic Panel EDMS 07/04 15:39 Order name: Comprehensive Metabolic Panel EDMS 07/04 15:39 Order name: Comprehensive Metabolic Panel EDMS 07/04 15:39 Order name: Comprehensive Metabolic Panel EDMS 07/04 15:39 Order name: Magnesium EDMS 07/04 15:39 Order name: Magnesium EDMS 07/04 15:39 Order name: Magnesium EDMS 07/04 15:39 Order name: Magnesium EDMS 07/04 15:39 Order name: Magnesium EDMS 07/04 15:39 Order name: Phosphorus EDMS 07/04 15:39 Order name: Phosphorus EDMS 07/04 15:39 Order name: Phosphorus EDMS 07/04 15:39 Order name: Phosphorus EDMS 07/04 15:39 Order name: Phosphorus EDMS 07/04 15:39 Order name: Protime (+INR) EDMS 07/04 15:39 Order name: Protime (+INR) EDMS 07/04 15:39 Order name: Protime (+INR) EDMS 07/04 15:39 Order name: Protime (+INR) EDMS 07/04 15:39 Order name: Protime (+INR) EDMS 07/04 15:39 Order name: T4 Free EDMS 07/04 15:39 Order name: T4 Free EDMS 07/04 15:39 Order name: Thyroid Stimulating Hormone EDMS 07/04 15:39 Order name: Thyroid Stimulating Hormone EDMS 07/04 15:40 Order name: Lipid Profile EDMS 07/04 15:40 Order name: Lipid Profile EDMS 07/04 13:00 Order name: XRAY Chest (1 view); Complete Time: 14:28 3 07/04 13:00 Order name: Cardiac monitoring; Complete Time: 13:15 07/04 13:00 Order name: EKG - Nurse/Tech; Complete Time: 14:48 07/04 13:00 Order name: IV Saline Lock; Complete Time: 14:03 07/04 13:00 Order name: Labs collected and sent; Complete Time: 13:16 07/04 13:00 Order name: O2 Per Protocol; Complete Time: 13:16 07/04 13:00 Order name: O2 Sat Monitoring; Complete Time: 13:16 sp3 07/04 13:31 Order name: Labs - recollect needed: all 3 tubes; Complete Time: 14:03 ll1 Administered Medications: 14:15 Drug: Furosemide IVP 40 mg IVP once; give over 2 minutes Route: IVP; Site: left femoral;jp5 15:12 Drug: Albumin IVPB 25 grams 100 ml IVPB once; (Note: Albumin 25% concentration) Volume: jp5 100 ml; Route: IVPB; Site: left forearm; 15:58 Follow up: IV Status: Completed infusion; IV Intake: 100ml jp5 16:01 Drug: Calcium Gluconate IVPB 1 grams IVPB once over 60 mins; (mix in NS 100 mL) Route: jp5 IVPB; Infused Over: 60 mins; Site: left forearm; 17:01 Follow up: IV Status: Completed infusion; IV Intake: 50ml jp5 Disposition: 14:48 Critical Care:. sp3 Disposition Summary: 07/04/25 14:46 Hospitalization Ordered Notes: Hospitalization Status: Observation sp3 Provider: Kye Germain sp3 Location: Telemetry/[facility] (observation) sp3 Condition: Stable sp3 Problem: an acute exacerbation sp3 Symptoms: have worsened sp3 Bed/Room Type: Standard sp3 Room Assignment: 218(07/04/25 16:03) ll1 Diagnosis - Peripheral edema, hypoalbuminemia, hypocalcemia sp3 Forms: - Medication Reconciliation Form sp3 - SBAR form sp3 - Leadership Thank You Letter sp3 Critical care time excluding procedures: 14:48 Critical care time: Bedside Care: 15 minutes, Consultation: 10 minutes, Family sp3 Intervention: 5 minutes. Total time: 30 minutes Signatures: Dispatcher [employer] Dale Hansen RN RN ll1 Jr Prado MD MD sp3 Ivonne Fajardo RN RN jp5 Corrections: (The following items were deleted from the chart) 13:00 13:00 BASIC METABOLIC PANEL+C.LAB.BRZ ordered. EDMS EDMS 13:00 13:00 CBC+H.LAB.BRZ ordered. EDMS EDMS 13:00 13:00 HEPATIC FUNCTION+C.LAB.BRZ ordered. EDMS EDMS 13:00 13:00 MAGNESIUM+C.LAB.BRZ ordered. EDMS EDMS 13:00 13:00 PROBNP+C.LAB.BRZ ordered. EDMS EDMS 13:00 13:00 PROTIME (+INR)+COAG.LAB.BRZ ordered. EDMS EDMS 13:00 13:00 Troponin High Sensitivity+C.LAB.BRZ ordered. EDMS EDMS 13:00 13:00 Chest Single View+RAD.RAD.BRZ ordered. EDMS EDMS 14:42 14:41 Albumin+C.LAB.BRZ ordered. EDMS EDMS 16:03 14:46 sp3 ll1
[2025-07-04] MEDS ORDERED: ALBUMIN HUMAN 25% 100 ML IV ONE (14:52)
[2025-07-04] MEDS ORDERED: CALCIUM GLUCONATE 1 GM IVPB 1 GM/50 ML BAG IV ONE (15:02)
--- NOTE | 2025-07-04 15:48 | P.HP ---
Certification for Inpatient Patient admitted to: Inpatient With expected LOS: >2 Midnights Patient will require the following post-hospital care: None Practitioner: I am a practitioner with admitting privileges, knowledge of patient current condition, hospital course, and medical plan of care. Services: Services provided to patient in accordance with Admission requirements found in Title 42 Section 412.3 of the Code of Federal Regulations <Roberto Carrillo Filomena Moore - Last Filed: 07/04/25 15:43> Patient History Date of Service: 07/04/25 Reason for admission: Anasarca, hypoalbuminemia History of Present Illness: 64-year-old male with history of tobacco use presented to the emergency department with chief complaint of swelling to the face, arms, legs, abdomen and shortness of breath. This is his fourth trip to the hospital in the past 2 weeks. He was admitted for 4 days and treated for suspected pneumonia 06/29 06/30 and subsequently discharged. He has been staying at the [facility] for the last couple of weeks but before then lifted his own although was able to afford food and his bills etc. Patient's blood work today is significant for an albumin of less than 0.9 calcium of 6.9 white blood cell count 11.2 hemoglobin 12.8 hematocrit 37.5 INR 1.02 normal LFTs, renal function. UA is pending. Patient noted to have hypoalbuminemia during each of his visits but this time it is lower. Patient denies GI losses/diarrhea, was getting adequate oral intake/diet until around 2 weeks ago and now has been getting typically 1 meal per day at [facility]. Patient was admitted to the hospital for further evaluation of his anasarca and hypoalbuminemia. He also denies being a heavy drinker. - Past Medical/Surgical History Diabetic: No -: Cataract Sx L eye -: Appy -: Najma -: Laminectomy Psychosocial/ Personal History: Currently staying at the [facility] - Social History Smoking Status: Current every day smoker Alcohol use: No CD- Drugs: No Caffeine use: Yes Place of Residence: Home <AceRoberto harvey - Last Filed: 07/04/25 15:43> Date of Service: 07/04/25 <Kye Germain - Last Filed: 07/04/25 16:04> Allergies No Known Allergies Allergy (Unverified 06/26/25 15:42) Home Medications: Albuterol Inhaler [Ventolin Inhaler*] 2 puff IH Q6H PRN #1 inh 06/28/25 levoFLOXacin [Levaquin] 500 mg PO DAILY #7 tab 06/28/25 predniSONE [Deltasone] 20 mg PO BID #10 tab 06/28/25 Review of Systems 10-point ROS is otherwise unremarkable Respiratory: Shortness of Breath Cardiovascular: Edema <Roberto Carrillo - Last Filed: 07/04/25 15:43> Physical Examination - Physical Exam General: Alert, In no apparent distress, Oriented x3 HEENT: Atraumatic, PERRLA, Mucous membr. moist/pink, EOMI, Sclerae nonicteric Neck: Supple, 2+ carotid pulse no bruit, No LAD, Without JVD or thyroid abnormality Respiratory: Clear to auscultation bilaterally, Normal air movement Cardiovascular: Regular rate/rhythm, Normal S1 S2, Edema (Pitting edema to lower extremities to the level of the thigh, pitting of the abdominal wall, swelling of the upper extremities, facial swelling) Gastrointestinal: Normal bowel sounds Musculoskeletal: No tenderness Integumentary: No rashes Neurological: Normal gait, Normal speech, Normal strength at 5/5 x4 extr, Normal affect - Studies Laboratory Data (last 24 hrs) 07/04/25 07/04/25 07/04/25 14:00 14:00 14:00 WBC 11.20 H Hgb 12.8 L Hct 37.5 L Plt Count 358 PT 11.5 INR 1.02 Sodium 143 Potassium 3.8 BUN 26 H Creatinine 1.01 Glucose 136 H Magnesium 2.2 Total Bilirubin 0.2 AST < 10 L ALT 22 Alkaline Phosphatase 101 <Roberto Carrillo - Last Filed: 07/04/25 15:43> - Studies Laboratory Data (last 24 hrs) 07/04/25 07/04/25 07/04/25 14:00 14:00 14:00 WBC 11.20 H Hgb 12.8 L Hct 37.5 L Plt Count 358 PT 11.5 INR 1.02 Sodium 143 Potassium 3.8 BUN 26 H Creatinine 1.01 Glucose 136 H Magnesium 2.2 Total Bilirubin 0.2 AST < 10 L ALT 22 Alkaline Phosphatase 101 <Marcellus,Kye - Last Filed: 07/04/25 16:04> Assessment and Plan - Plan Assessment: Anasarca Hypoalbuminemia Hypocalcemia Tobacco use disorder Plan: Anasarca Hypoalbuminemia Hypocalcemia Albumin less than 0.9, confirmed on recheck Denies GI losses Prior to the last 2 weeks was eating adequate diet but more recently eating around 1 meal a day at the [facility] Doubt severity and rapid progression of symptoms caused by malnutrition Total protein also low, will obtain urine studies to evaluate/rule out possible proteinuria/nephrotic syndrome Not a heavy drinker, AST/ALT and INR normal Diurese with IV Lasix, given albumin in ED Repeat chemistries, LFTs, albumin in the morning Tobacco use disorder Smokes a pack per day NicoDerm patch ordered DVT PPX: Lovenox Code status: Full code Discharge Plan: Home Plan to discharge in: Greater than 2 days - Advance Directives Does patient have a Living Will: No Does patient have a Durable POA for Healthcare: No - Code Status/Comfort Care Code Status Assessed: Yes (Full code) Critical Care: No Time Spent Managing Pts Care (In Minutes): 71 <Roberto Carrillo - Last Filed: 07/04/25 15:43> Physician Review: Patient Assessed, Agree with Above Assessment and Plan <Kye Germain - Last Filed: 07/04/25 16:04>
[2025-07-04] MEDS: NICOTINE 21 MG/PAT TD SCH (17:44)
[2025-07-05 04:24] LABS: Urine Micro Reflex YN NO BILL NO MICROSCOPIC
[2025-07-05 05:11] LABS: UR CREAT 170.0 mg/dL (20-370); UR PROTEIN > 2500.0 mg/dL (<11.9)
[2025-07-05 05:33] LABS: PT Prothrombin Time 11.2 SECONDS (10-13.0); Protime INR 0.99
[2025-07-05 05:43] LABS: ALT/SGPT 15 U/L (16-61); AST/SGOT 13 U/L (15-37); Albumin 0.9 g/dL (3.4-5.0); Albumin/Globulin Ratio ND (1.1-1.8); Alkaline Phosphatase 98 U/L (45-117); Anion Gap 7.6 mEq/L (5.0-15.0); BUN Blood Urea Nitrogen 25 mg/dL (7-18); Globulin 3.0 g/dL (2.3-3.5); Glucose Level 106 mg/dL (74-106); HDL Cholesterol 69 mg/dL (40-60); LDL Cholesterol, Calculated 120 mg/dL (<130); LDL Cholesterol,Calc NonReport 120; Magnesium 2.2 mg/dL (1.6-2.4); Potassium 3.6 mEq/L (3.5-5.1); Thyroid Stimulating Hormone 9.910 uIU/mL (0.358-3.740)
[2025-07-05 06:58] LABS: Absolute Lymphocytes (CBC) 1.5 K/uL (0.7-4.9); Hematocrit 35.9 % (39.6-49.0); Hemoglobin 12.0 g/dL (13.6-17.9); MCH 31.1 pg (27.0-35.0); MCHC 33.5 g/dL (32.0-36.0); MCV 92.8 fL (80-100); MPV 7.9 fL (7.6-11.3); Nucleated RBC Absolute Count 0.0 (0-0); Nucleated Red Blood Cells % 0.0 % (0-0); RBC Red Blood Cell Count 3.86 M/uL (4.33-5.43); White Blood Count 8.80 thou/uL (4.3-10.9)
[2025-07-05] MEDS: POTASSIUM CL SA 10 MEQ TAB PO ONE (08:03)
[2025-07-05] MEDS: ENOXAPARIN 40 MG/0.4 ML SQ SCH (08:03)
[2025-07-05] MEDS: FUROSEMIDE 40 MG/4 ML VIAL IV SCH (08:03)
--- NOTE | 2025-07-05 08:57 | P.CNS ---
Date of Consult: 07/05/25 Reason for Consult: Anasarca Requesting Physician: Robel Meng Chief Complaint: Anasarca, hypoalbuminemia History of Present Illness: 64-year-old male with history of tobacco use presented to the emergency department with chief complaint of swelling to the face, arms, legs, abdomen and shortness of breath. This is his fourth trip to the hospital in the past 2 weeks. He was admitted for 4 days and treated for suspected pneumonia 06/29 06/30 and subsequently discharged. He has been staying at the [facility] for the last couple of weeks but before then lifted his own although was able to afford food and his bills etc. Patient's blood work today is significant for an albumin of less than 0.9 calcium of 6.9 white blood cell count 11.2 hemoglobin 12.8 hematocrit 37.5 INR 1.02 normal LFTs, renal function. UA is pending. Patient noted to have hypoalbuminemia during each of his visits but this time it is lower. Patient denies GI losses/diarrhea, was getting adequate oral intake/diet until around 2 weeks ago and now has been getting typically 1 meal per day at [facility]. Patient was admitted to the hospital for further evaluation of his anasarca and hypoalbuminemia. He also denies being a heavy drinker. 13:11 This 64 yrs old Male presents to ER via EMS with complaints of Shortness Of Breath. sp3 13:15 64-year-old male with history of pneumonia and multiple recent visits for peripheral sp3 edema now presents to the ED for recurrent shortness of breath, and peripheral edema in all 4 extremities. No documented history of CHF, coronary artery disease or other abnormality. He denies any ongoing chest pain, back pain, anginal equivalents abdominal pain, vomiting, diarrhea, fever, or any other signs or symptoms on ROS at this time Denies NSAIDs. Denies any new medications or supplements. Denies drugs. No urinary difficulties. No family history of CKD. Reports his symptoms started about a month ago. Allergies No Known Allergies Allergy (Unverified 06/26/25 15:42) Home medications list reviewed: Yes Home Medications: NK [No Home Meds] 07/04/25 - Past Medical/Surgical History Diabetic: No -: PNA -: Cataract Sx L eye -: Appy -: Najma -: Laminectomy Psychosocial/ Personal History: Currently staying at the [facility] - Social History Smoking Status: Current every day smoker Alcohol use: No CD- Drugs: No Caffeine use: Yes Place of Residence: Homeless Review of Systems 10-point ROS is otherwise unremarkable General: Malaise Cardiovascular: Edema Physical Examination Temp Pulse Resp BP Pulse Ox 98.0 F 70 20 171/88 H 98 07/05/25 08:00 07/05/25 08:03 07/05/25 08:00 07/05/25 08:03 07/05/25 08:00 General: Oriented x3, Cooperative HEENT: Atraumatic Neck: Supple Respiratory: Clear to auscultation bilaterally Cardiovascular: Regular rate/rhythm, Edema Gastrointestinal: Soft and benign, Non-distended Musculoskeletal: No clubbing, No contractures Integumentary: No rashes Neurological: Normal speech Laboratory Data (last 24 hrs) 07/04/25 07/04/25 07/04/25 14:00 14:00 14:00 WBC 11.20 H Hgb 12.8 L Hct 37.5 L Plt Count 358 PT 11.5 INR 1.02 Sodium 143 Potassium 3.8 BUN 26 H Creatinine 1.01 Glucose 136 H Magnesium 2.2 Total Bilirubin 0.2 AST < 10 L ALT 22 Alkaline Phosphatase 101 Imagings Data: EXAMINATION: ONE VIEW CHEST XR CLINICAL INDICATION: Male, 64 years old.,DYSPNEA TECHNIQUE: Frontal chest projection is submitted. Examination is limited by patient positioning and technique. COMPARISON: 07/02/2025. FINDINGS: The lungs are grossly clear although suboptimal inspiratory effort somewhat limits evaluation. No pneumothorax or sizable effusion. The heart is normal in size. Mediastinal contours are unremarkable. IMPRESSION: No acute intrathoracic abnormalities. 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
--- NOTE | 2025-07-05 09:36 | P.PN ---
Date of Service: 07/05/25 Subjective: No acute events overnight Some mild improvement in swelling ROS: 10 point ROS as noted above, otherwise negative Physical exam GEN: Alert, oriented, NAD HEENT: Normal conjunctiva, sclera anicteric CV: Regular rate and rhythm, anasarca with pitting edema Pulm: Nonlabored respirations on room air ABD: Soft, nontender, nondistended MSK: No joint tenderness Integumentary: No rashes Neuro: Normal speech, normal affect Vitals reviewed Assessment: Nephrotic syndrome Anasarca Hypoalbuminemia Hypocalcemia Tobacco use disorder Plan: Nephrotic syndrome Anasarca Hypoalbuminemia Hypocalcemia Urine protein in the nephrotic range Nephrology consulted/following Arrange for urgent renal biopsy Diurese with IV Lasix, given albumin in ED Repeat chemistries, LFTs, albumin in the morning Tobacco use disorder Smokes a pack per day NicoDerm patch ordered DVT PPX: Lovenox Code status: Full code Discharge Plan: Home Plan to discharge in: Greater than 2 days - Advance Directives Does patient have a Living Will: No Does patient have a Durable POA for Healthcare: No Time Spent Managing Pts Care (In Minutes): 35 <Roberto Carrillo - Last Filed: 07/05/25 09:35> Patient was seen and examined. Events of the last 24 hours have been noted. Spoke with with KRISH regarding patient's clinical picture after evaluating and examining the patient independently. I performed a substantial part of the MDM during this patient's care today. I personally made or approved the documented management plan and acknowledge its risk of complications. I agree with the findings and documentation provided in the KRISH's notes. Workup pending for nephrotic syndrome; patient's biopsy is pending. <Robel Meng - Last Filed: 07/11/25 23:15>
[2025-07-05] MEDS: SPIRONOLACTONE 25 MG TABLET PO SCH (10:33)
[2025-07-05] MEDS ORDERED: LOSARTAN POTASSIUM 50 MG TABLET PO SCH (12:00)
[2025-07-05] MEDS: BENAZEPRIL 20 MG TAB PO SCH (12:17)
[2025-07-05 14:56] LABS: HBsAG Nonreactive Report Report; Hepatitis B Surface Ab - Quant 3.16 mIU/mL (<8.0); Hepatitis B surface AG Interp. Nonreactive (Nonreactive)
[2025-07-05] MEDS: DOCUSATE NA 100 MG CAP PO SCH (20:57)
--- NOTE | 2025-07-05 21:17 | RAD REPORT ---
EXAMINATION: US RETROPERITONEUM CLINICAL INDICATION: [facility] Stage I GINI/ CKD I with Nephrotic Syndrome TECHNIQUE: Real-time ultrasonography of the abdomen was performed. COMPARISON: No prior exam. FINDINGS: Poor penetration somewhat limits evaluation RIGHT KIDNEY: Right renal length measurement: 11.2 cm. Normal in echogenicity and size. No calculus, solid mass or hydronephrosis. Exophytic 2.3 x 2.6 x 1.7 cm cortical cyst near the upper pole. LEFT KIDNEY: Left renal length measurement: 11.4 cm. Normal in echogenicity and size. No calculus, so lid mass or hydronephrosis. URINARY BLADDER: Decompressed limiting evaluation. ADDITIONAL FINDINGS: None. IMPRESSION: No acute or significant abnormalities. Incidentally noted anechoic right renal 2.6 cm cyst, without s uspicious features.
[2025-07-06 05:48] LABS: RPR (Rapid Plasma Reagin) NON-REACT (NON-REACT)
[2025-07-06 06:18] LABS: PT Prothrombin Time 11.4 SECONDS (10-13.0); Protime INR 1.01
[2025-07-06 06:24] LABS: Absolute Lymphocytes (CBC) 1.9 K/uL (0.7-4.9); Hematocrit 40.7 % (39.6-49.0); Hemoglobin 13.8 g/dL (13.6-17.9); MCH 31.4 pg (27.0-35.0); MCHC 33.9 g/dL (32.0-36.0); MCV 92.6 fL (80-100); MPV 7.6 fL (7.6-11.3); Nucleated RBC Absolute Count 0.0 (0-0); Nucleated Red Blood Cells % 0.1 % (0-0); RBC Red Blood Cell Count 4.39 M/uL (4.33-5.43); White Blood Count 9.10 thou/uL (4.3-10.9)
[2025-07-06 06:30] LABS: ALT/SGPT 15 U/L (16-61); AST/SGOT 15 U/L (15-37); Alkaline Phosphatase 93 U/L (45-117); Anion Gap 6.2 mEq/L (5.0-15.0); BUN Blood Urea Nitrogen 23 mg/dL (7-18); Glucose Level 106 mg/dL (74-106); Magnesium 2.4 mg/dL (1.6-2.4); Potassium 4.2 mEq/L (3.5-5.1)
[2025-07-06 06:31] LABS: Albumin < 0.9 g/dL (3.4-5.0); Albumin/Globulin Ratio ND (1.1-1.8); Globulin 3.7 g/dL (2.3-3.5)
[2025-07-06] MEDS: NA CHLORIDE 0.9% 1,000 ML ONE (08:47)
[2025-07-06] MEDS: FLUMAZENIL 0.1 MG/ML (5 mL VIAL) IV ONE (08:51)
[2025-07-06] MEDS: NALOXONE HCL 2 MG/2 ML VIAL ONE (08:52)
[2025-07-06] MEDS: FENTANYL CITR 100 MCG/2 ML ONE (08:52)
[2025-07-06] MEDS: MIDAZOLAM HCL 2 MG/2 ML INJ ONE (08:52)
[2025-07-06] MEDS: DRISDOL (VITAMIN D=ERGOCALCIFEROL) 50000 UNIT CAP PO SCH (09:50)
--- NOTE | 2025-07-06 09:50 | P.PN ---
Date of Service: 07/06/25 Subjective: Was going to have renal biopsy today Canceled due to high blood pressures No other acute events overnight ROS: 10 point ROS as noted above, otherwise negative Physical exam GEN: Alert, oriented, NAD HEENT: Normal conjunctiva, sclera anicteric CV: Regular rate and rhythm, anasarca with pitting edema Pulm: Nonlabored respirations on room air ABD: Soft, nontender, nondistended MSK: No joint tenderness Integumentary: No rashes Neuro: Normal speech, normal affect Vitals reviewed Assessment: Nephrotic syndrome Anasarca Hypoalbuminemia Hypocalcemia Tobacco use disorder Plan: Nephrotic syndrome Anasarca Hypoalbuminemia Hypocalcemia Urine protein in the nephrotic range Nephrology consulted/following Arrange for urgent renal biopsy-held today due to elevated blood pressures Diurese with IV Lasix, given albumin in ED Repeat chemistries, LFTs, albumin in the morning blood pressure medications being adjusted Tobacco use disorder Smokes a pack per day NicoDerm patch ordered DVT PPX: Lovenox Code status: Full code Discharge Plan: Home Plan to discharge in: Greater than 2 days - Advance Directives Does patient have a Living Will: No Does patient have a Durable POA for Healthcare: No Time Spent Managing Pts Care (In Minutes): 35 <Roberto Carrillo - Last Filed: 07/06/25 09:49> Patient was seen and examined. Events of the last 24 hours have been noted. Spoke with with KRISH regarding patient's clinical picture after evaluating and examining the patient independently. I performed a substantial part of the MDM during this patient's care today. I personally made or approved the documented management plan and acknowledge its risk of complications. I agree with the findings and documentation provided in the KRISH's notes. Biopsy was post to be done but delayed because of elevated blood pressure. Will reschedule for either today or in the morning. Continue with current plan of care. Biopsy pending. Plan of care pending biopsy results. <Robel Meng - Last Filed: 07/11/25 23:17>
--- NOTE | 2025-07-06 19:52 | P.PN ---
Date of Service: 07/06/25 Vital Signs Temp Pulse Resp BP Pulse Ox 97.9 F 87 19 139/90 98 07/06/25 16:00 07/06/25 16:07 07/06/25 16:00 07/06/25 16:07 07/06/25 16:00 Medications Benazepril HCl (Benazepril 20 Mg Tab) 20 mg PO BID [facility] Last Admin: 07/06/25 09:14 Dose: 20 mg Diltiazem HCl (Diltiazem Hcl 120 Mg Sr Cap) 120 mg PO 1X ONE Stop: 07/06/25 19:46 Diltiazem HCl (Diltiazem Hcl 180 Mg Sr Cap) 180 mg PO DAILY [facility] Docusate Sodium (Docusate Na 100 Mg Cap) 100 mg PO BID [facility] Last Admin: 07/06/25 09:50 Dose: 100 mg Ergocalciferol (Drisdol (Vitamin D=Ergocalciferol) 42902 Unit Cap) 50,000 unit PO Q7D@0900 [facility] Last Admin: 07/06/25 09:50 Dose: 50,000 unit Furosemide (Furosemide 40 Mg/4 Ml Vial) 40 mg IV Q8HR [facility] Last Admin: 07/06/25 16:07 Dose: 40 mg Nicotine (Nicotine 21 Mg/Pat) 21 mg TD DAILY [facility] Last Admin: 07/06/25 09:50 Dose: 21 mg Spironolactone (Spironolactone 25 Mg Tablet) 25 mg PO BID [facility] Last Admin: 07/06/25 09:15 Dose: 25 mg Assessment/ Plan: Nephrology No dyspnea No chest pain No acute events overnight Vitals, medications, blood work and imaging reviewed in the chart General: Oriented x3, Cooperative HEENT: Atraumatic Neck: Supple Respiratory: Clear to auscultation bilaterally Cardiovascular: Regular rate/rhythm, Edema Gastrointestinal: Soft and benign, Non-distended Musculoskeletal: No clubbing, No contractures Integumentary: No rashes Neurological: Normal speech Laboratory Data (last 24 hrs) 07/04/25 07/04/25 07/04/25 14:00 14:00 14:00 WBC 11.20 H Hgb 12.8 L Hct 37.5 L Plt Count 358 PT 11.5 INR 1.02 Sodium 143 Potassium 3.8 BUN 26 H Creatinine 1.01 Glucose 136 H Magnesium 2.2 Total Bilirubin 0.2 AST < 10 L ALT 22 Alkaline Phosphatase 101 Imagings Data: EXAMINATION: ONE VIEW CHEST XR CLINICAL INDICATION: Male, 64 years old.,DYSPNEA TECHNIQUE: Frontal chest projection is submitted. Examination is limited by patient positioning and technique. COMPARISON: 07/02/2025. FINDINGS: The lungs are grossly clear although suboptimal inspiratory effort somewhat limits evaluation. No pneumothorax or sizable effusion. The heart is normal in size. Mediastinal contours are unremarkable. IMPRESSION: No acute intrathoracic abnormalities. TECHNIQUE: Real-time ultrasonography of the abdomen was performed. COMPARISON: No prior exam. FINDINGS: Poor penetration somewhat limits evaluation RIGHT KIDNEY: Right renal length measurement: 11.2 cm. Normal in echogenicity and size. No calculus, solid mass or hydronephrosis. Exophytic 2.3 x 2.6 x 1.7 cm cortical cyst near the upper pole. LEFT KIDNEY: Left renal length measurement: 11.4 cm. Normal in echogenicity and size. No calculus, solid mass or hydronephrosis. URINARY BLADDER: Decompressed limiting evaluation. ADDITIONAL FINDINGS: None. IMPRESSION: No acute or significant abnormalities. Incidentally noted anechoic right renal 2.6 cm cyst, without suspicious features. 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 Hospitalist note reviewed
[2025-07-06] MEDS: DILTIAZEM HCL 120 MG SR CAP PO ONE (20:40)
[2025-07-07 04:44] LABS: Absolute Lymphocytes (CBC) 1.8 K/uL (0.7-4.9); Hematocrit 32.9 % (39.6-49.0); Hemoglobin 11.2 g/dL (13.6-17.9); MCH 31.4 pg (27.0-35.0); MCHC 34.0 g/dL (32.0-36.0); MCV 92.5 fL (80-100); MPV 7.3 fL (7.6-11.3); Nucleated RBC Absolute Count 0.0 (0-0); Nucleated Red Blood Cells % 0.0 % (0-0); RBC Red Blood Cell Count 3.56 M/uL (4.33-5.43); White Blood Count 8.10 thou/uL (4.3-10.9)
[2025-07-07 04:48] LABS: PT Prothrombin Time 11.6 SECONDS (10-13.0); Protime INR 1.03
[2025-07-07 05:09] LABS: AST/SGOT 11 U/L (15-37); Alkaline Phosphatase 89 U/L (45-117); Anion Gap 6.0 mEq/L (5.0-15.0); BUN Blood Urea Nitrogen 22 mg/dL (7-18); Glucose Level 101 mg/dL (74-106); Magnesium 2.1 mg/dL (1.6-2.4); Potassium 4.0 mEq/L (3.5-5.1)
[2025-07-07 05:10] LABS: ALT/SGPT < 14 U/L (16-61); Albumin < 0.9 g/dL (3.4-5.0); Albumin/Globulin Ratio ND (1.1-1.8); Globulin 3.1 g/dL (2.3-3.5)
--- NOTE | 2025-07-07 08:32 | P.PN ---
Date of Service: 07/07/25 Subjective: Plan for renal biopsy today, blood pressure improved Still edematous, no other acute events overnight ROS: 10 point ROS as noted above, otherwise negative Physical exam GEN: Alert, oriented, NAD HEENT: Normal conjunctiva, sclera anicteric CV: Regular rate and rhythm, anasarca with pitting edema Pulm: Nonlabored respirations on room air ABD: Soft, nontender, nondistended MSK: No joint tenderness Integumentary: No rashes Neuro: Normal speech, normal affect Vitals reviewed Assessment: Nephrotic syndrome Anasarca Hypoalbuminemia Hypocalcemia Tobacco use disorder Plan: Nephrotic syndrome Anasarca Hypoalbuminemia Hypocalcemia Urine protein in the nephrotic range Nephrology consulted/following Arrange for urgent renal biopsy-should take place today Diurese with IV Lasix Repeat chemistries, LFTs, albumin in the morning blood pressure medications being adjusted for better control Tobacco use disorder Smokes a pack per day NicoDerm patch ordered DVT PPX: Lovenox Code status: Full code Discharge Plan: Home Plan to discharge in: Greater than 2 days - Advance Directives Does patient have a Living Will: No Does patient have a Durable POA for Healthcare: No Time Spent Managing Pts Care (In Minutes): 35 <Roberto Carrillo - Last Filed: 07/07/25 08:31> Patient was seen and examined. Events of the last 24 hours have been noted. Spoke with with KRISH regarding patient's clinical picture after evaluating and examining the patient independently. I performed a substantial part of the MDM during this patient's care today. I personally made or approved the documented management plan and acknowledge its risk of complications. I agree with the findings and documentation provided in the KRISH's notes. Biopsy completed. Pathology pending. <Robel Meng - Last Filed: 07/11/25 23:17>
[2025-07-07] MEDS: DILTIAZEM HCL 180 MG SR CAP PO SCH (09:04)
[2025-07-07] MEDS: MIDAZOLAM HCL 2 MG/2 ML INJ ONE (09:45)
[2025-07-07] MEDS: FLUMAZENIL 0.1 MG/ML (5 mL VIAL) IV ONE (09:45)
[2025-07-07] MEDS: FENTANYL CITR 100 MCG/2 ML ONE (09:46)
[2025-07-07] MEDS: NALOXONE HCL 2 MG/2 ML VIAL ONE (09:46)
[2025-07-07] MEDS: NA CHLORIDE 0.9% 250 ML ONE (09:47)
--- NOTE | 2025-07-07 12:41 | RAD REPORT ---
PROCEDURE: CT-GUIDED BIOPSY Renal Biopsy CT Pre-procedure diagnosis: Proteinuria Post-procedure diagnosis: Same as above. COMPLICATIONS: No immediate complications. IMPRESSION: CT-guided biopsy of the left kidney PROCEDURE DETAILS: Consent: Informed consent for the procedure including risks, benefits and alternatives was obtained a nd time-out was performed prior to the procedure. Sedation: Moderate sedation (conscious sedation) Administered by: Nurse, or other independent traine d observer, with level of consciousness and vital signs continuously monitored. Total sedation administered: 1 mL Versed and 50 mcg Fentanyl. Total intra-service sedation time: 30 minutes. Biopsy: Local anesthesia was administered. Under CT guidance, the biopsy needle was advanced to the t arget and biopsy was performed. [id number]. Number of specimens: 3 Additional sampling description: None. Preliminary assessment of sample adequacy: Not applicable. The biopsy needle was removed and a sterile dressing was applied. Post-biopsy imaging findings: No immediate complications seen. Additional Details: Additional description of procedure: None Equipment details: 18 gauge core sample device Estimated blood loss: Less than 10 mL.
[2025-07-07] MEDS ORDERED: NEBIVOLOL HCL 5 MG TAB PO ONE (19:45)
--- NOTE | 2025-07-07 20:10 | P.PN ---
Date of Service: 07/07/25 Vital Signs Temp Pulse Resp BP Pulse Ox 98.0 F 78 16 134/65 97 07/07/25 16:00 07/07/25 16:00 07/07/25 16:00 07/07/25 16:00 07/07/25 16:00 Medications Benazepril HCl (Benazepril 20 Mg Tab) 20 mg PO BID [facility] Last Admin: 07/07/25 09:04 Dose: 20 mg Diltiazem HCl (Diltiazem Hcl 180 Mg Sr Cap) 180 mg PO DAILY [facility] Last Admin: 07/07/25 09:04 Dose: 180 mg Docusate Sodium (Docusate Na 100 Mg Cap) 100 mg PO BID [facility] Last Admin: 07/07/25 09:04 Dose: 100 mg Ergocalciferol (Drisdol (Vitamin D=Ergocalciferol) 42144 Unit Cap) 50,000 unit PO Q7D@0900 [facility] Last Admin: 07/06/25 09:50 Dose: 50,000 unit Furosemide (Furosemide 40 Mg/4 Ml Vial) 40 mg IV Q8HR [facility] Last Admin: 07/07/25 17:48 Dose: 40 mg Nicotine (Nicotine 21 Mg/Pat) 21 mg TD DAILY [facility] Last Admin: 07/07/25 09:04 Dose: 21 mg Spironolactone (Spironolactone 25 Mg Tablet) 25 mg PO BID [facility] Last Admin: 07/07/25 09:04 Dose: 25 mg Assessment/ Plan: Nephrology No dyspnea No chest pain No acute events overnight Persistent edema Vitals, medications, blood work and imaging reviewed in the chart General: Oriented x3, Cooperative HEENT: Atraumatic Neck: Supple Respiratory: Clear to auscultation bilaterally Cardiovascular: Regular rate/rhythm, Edema Gastrointestinal: Soft and benign, Non-distended Musculoskeletal: No clubbing, No contractures Integumentary: No rashes Neurological: Normal speech Laboratory Data (last 24 hrs) 07/04/25 07/04/25 07/04/25 14:00 14:00 14:00 WBC 11.20 H Hgb 12.8 L Hct 37.5 L Plt Count 358 PT 11.5 INR 1.02 Sodium 143 Potassium 3.8 BUN 26 H Creatinine 1.01 Glucose 136 H Magnesium 2.2 Total Bilirubin 0.2 AST < 10 L ALT 22 Alkaline Phosphatase 101 Imagings Data: EXAMINATION: ONE VIEW CHEST XR CLINICAL INDICATION: Male, 64 years old.,DYSPNEA TECHNIQUE: Frontal chest projection is submitted. Examination is limited by patient positioning and technique. COMPARISON: 07/02/2025. FINDINGS: The lungs are grossly clear although suboptimal inspiratory effort somewhat limits evaluation. No pneumothorax or sizable effusion. The heart is normal in size. Mediastinal contours are unremarkable. IMPRESSION: No acute intrathoracic abnormalities. TECHNIQUE: Real-time ultrasonography of the abdomen was performed. COMPARISON: No prior exam. FINDINGS: Poor penetration somewhat limits evaluation RIGHT KIDNEY: Right renal length measurement: 11.2 cm. Normal in echogenicity and size. No calculus, solid mass or hydronephrosis. Exophytic 2.3 x 2.6 x 1.7 cm cortical cyst near the upper pole. LEFT KIDNEY: Left renal length measurement: 11.4 cm. Normal in echogenicity and size. No calculus, solid mass or hydronephrosis. URINARY BLADDER: Decompressed limiting evaluation. ADDITIONAL FINDINGS: None. IMPRESSION: No acute or significant abnormalities. Incidentally noted anechoic right renal 2.6 cm cyst, without suspicious features. 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 Meng
[2025-07-07] MEDS: FUROSEMIDE 40 MG/4 ML VIAL IV SCH (22:09)
[2025-07-08] MEDS: METOLAZONE 5 MG TABLET PO ONE ×2 (05:34→13:43)
[2025-07-08] MEDS: ALBUMIN HUMAN 25% 100 ML IV ONE (12:26)
--- NOTE | 2025-07-08 12:35 | P.PN ---
Date of Service: 07/08/25 Subjective: Had a renal biopsy yesterday Still with 3+ pitting edema, anasarca No other acute events overnight ROS: 10 point ROS as noted above, otherwise negative Physical exam GEN: Alert, oriented, NAD HEENT: Normal conjunctiva, sclera anicteric CV: Regular rate and rhythm, anasarca with pitting edema Pulm: Nonlabored respirations on room air ABD: Soft, nontender, nondistended MSK: No joint tenderness Integumentary: No rashes Neuro: Normal speech, normal affect Vitals reviewed Assessment: Nephrotic syndrome Anasarca Hypoalbuminemia Hypocalcemia Tobacco use disorder Plan: Nephrotic syndrome Anasarca Hypoalbuminemia Hypocalcemia Urine protein in the nephrotic range Nephrology consulted/following S/p renal biopsy 07/07 Diurese with IV Lasix Repeat chemistries, LFTs, albumin in the morning blood pressure medications were adjusted for better control Continue diuresis Tobacco use disorder Smokes a pack per day NicoDerm patch ordered DVT PPX: Lovenox Code status: Full code Discharge Plan: Home Plan to discharge in: Greater than 2 days - Advance Directives Does patient have a Living Will: No Does patient have a Durable POA for Healthcare: No Time Spent Managing Pts Care (In Minutes): 35 <Roberto Carrillo - Last Filed: 07/08/25 12:34> Patient was seen and examined. Events of the last 24 hours have been noted. Spoke with with KRISH regarding patient's clinical picture after evaluating and examining the patient independently. I performed a substantial part of the MDM during this patient's care today. I personally made or approved the documented management plan and acknowledge its risk of complications. I agree with the findings and documentation provided in the KRISH's notes. Patient given albumin and Lasix drip and significant diuresing. Minimal lower extremity edema. Continue with monitoring volume status. Awaiting biopsy results. <Robel Meng - Last Filed: 07/11/25 23:19>
[2025-07-08] MEDS: ALBUMIN HUMAN 25% 12.5 GM, FUROSEMIDE 100 MG in NA CHLORIDE 0.9% 40 ML IV SCH (13:42)
--- NOTE | 2025-07-08 21:49 | P.PN ---
Date of Service: 07/08/25 Vital Signs Temp Pulse Resp BP Pulse Ox 98.2 F 74 20 143/80 H 96 07/08/25 16:00 07/08/25 20:24 07/08/25 16:00 07/08/25 20:24 07/08/25 16:00 Medications Benazepril HCl (Benazepril 20 Mg Tab) 20 mg PO BID [facility] Last Admin: 07/08/25 20:24 Dose: 20 mg Chlorthalidone (Chlorthalidone 25 Mg Tab) 25 mg PO Q24H [facility] Diltiazem HCl (Diltiazem Hcl 120 Mg Sr Cap) 240 mg PO DAILY [facility] Docusate Sodium (Docusate Na 100 Mg Cap) 100 mg PO BID [facility] Last Admin: 07/08/25 20:24 Dose: Not Given Ergocalciferol (Drisdol (Vitamin D=Ergocalciferol) 35790 Unit Cap) 50,000 unit PO Q7D@0900 [facility] Last Admin: 07/06/25 09:50 Dose: 50,000 unit Albumin Human 12.5 gm/Furosemide 100 mg/ Sodium Chloride 100 mls @ 20 mls/hr IV Q5H [facility] Stop: 07/09/25 13:59 Nicotine (Nicotine 21 Mg/Pat) 21 mg TD DAILY [facility] Last Admin: 07/08/25 08:10 Dose: 21 mg Spironolactone (Spironolactone 25 Mg Tablet) 25 mg PO BID [facility] Last Admin: 07/08/25 20:24 Dose: 25 mg Assessment/ Plan: Nephrology No dyspnea No chest pain No acute events overnight Persistent edema Good urine output Vitals, medications, blood work and imaging reviewed in the chart General: Oriented x3, Cooperative HEENT: Atraumatic Neck: Supple Respiratory: Clear to auscultation bilaterally Cardiovascular: Regular rate/rhythm, Edema Gastrointestinal: Soft and benign, Non-distended Musculoskeletal: No clubbing, No contractures Integumentary: No rashes Neurological: Normal speech Laboratory Data (last 24 hrs) 07/04/25 07/04/25 07/04/25 14:00 14:00 14:00 WBC 11.20 H Hgb 12.8 L Hct 37.5 L Plt Count 358 PT 11.5 INR 1.02 Sodium 143 Potassium 3.8 BUN 26 H Creatinine 1.01 Glucose 136 H Magnesium 2.2 Total Bilirubin 0.2 AST < 10 L ALT 22 Alkaline Phosphatase 101 Imagings Data: EXAMINATION: ONE VIEW CHEST XR CLINICAL INDICATION: Male, 64 years old.,DYSPNEA TECHNIQUE: Frontal chest projection is submitted. Examination is limited by patient positioning and technique. COMPARISON: 07/02/2025. FINDINGS: The lungs are grossly clear although suboptimal inspiratory effort somewhat limits evaluation. No pneumothorax or sizable effusion. The heart is normal in size. Mediastinal contours are unremarkable. IMPRESSION: No acute intrathoracic abnormalities. TECHNIQUE: Real-time ultrasonography of the abdomen was performed. COMPARISON: No prior exam. FINDINGS: Poor penetration somewhat limits evaluation RIGHT KIDNEY: Right renal length measurement: 11.2 cm. Normal in echogenicity and size. No calculus, solid mass or hydronephrosis. Exophytic 2.3 x 2.6 x 1.7 cm cortical cyst near the upper pole. LEFT KIDNEY: Left renal length measurement: 11.4 cm. Normal in echogenicity and size. No calculus, solid mass or hydronephrosis. URINARY BLADDER: Decompressed limiting evaluation. ADDITIONAL FINDINGS: None. IMPRESSION: No acute or significant abnormalities. Incidentally noted anechoic right renal 2.6 cm cyst, without suspicious features. 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 Meng The patient is homeless and requested a social work consult to assist him with homelessness options. His homelessness status may make it difficult to arrange for adequate treatment of PMN.
[2025-07-09 06:38] LABS: Sqamous Epithelial <5 /HPF (None Seen); Urine Crystals Unidentified Few /HPF (None Seen); Urine Micro Reflex YN NO BILL MICROSCOPIC; Urine WBC Clump Rare /HPF (None Seen); Urine Yeast (Budding) Trace /HPF (None Seen)
[2025-07-09 07:17] LABS: MA/CREAT RATIO 850.0 (< 30.0); UR CREAT 40.0 mg/dL (20-370); UR MICROALBUMIN > 34.0 mg/dL (< 1.9); UR PROTEIN 801.0 mg/dL (<11.9)
[2025-07-09 08:16] LABS: Absolute Lymphocytes (CBC) 1.4 K/uL (0.7-4.9); Hematocrit 32.2 % (39.6-49.0); Hemoglobin 11.2 g/dL (13.6-17.9); MCH 31.6 pg (27.0-35.0); MCHC 34.6 g/dL (32.0-36.0); MCV 91.3 fL (80-100); MPV 6.8 fL (7.6-11.3); Nucleated RBC Absolute Count 0.0 (0-0); Nucleated Red Blood Cells % 0.0 % (0-0); RBC Red Blood Cell Count 3.53 M/uL (4.33-5.43); White Blood Count 7.20 thou/uL (4.3-10.9)
[2025-07-09 08:25] LABS: PT Prothrombin Time 11.7 SECONDS (10-13.0); Protime INR 1.04
[2025-07-09 08:34] LABS: Albumin 1.1 g/dL (3.4-5.0); Anion Gap 6.8 mEq/L (5.0-15.0); BUN Blood Urea Nitrogen 20.0 mg/dL (7-18); Glucose Level 139.0 mg/dL (74-106); Potassium 3.8 mEq/L (3.5-5.1); Uric Acid 6.2 mg/dL (3.5-7.2)
[2025-07-09 08:36] LABS: ALT/SGPT 15 U/L (16-61); AST/SGOT < 10 U/L (15-37); Albumin 1.1 g/dL (3.4-5.0); Albumin/Globulin Ratio 0.3 (1.1-1.8); Alkaline Phosphatase 84 U/L (45-117); Anion Gap 7.8 mEq/L (5.0-15.0); BUN Blood Urea Nitrogen 20 mg/dL (7-18); Globulin 3.3 g/dL (2.3-3.5); Glucose Level 139 mg/dL (74-106); Magnesium 2.0 mg/dL (1.6-2.4); Potassium 3.8 mEq/L (3.5-5.1)
[2025-07-09] MEDS: DILTIAZEM HCL 120 MG SR CAP PO SCH (08:43)
[2025-07-09] MEDS: ALBUMIN HUMAN 25% 12.5 GM, FUROSEMIDE 100 MG in NA CHLORIDE 0.9% 40 ML IV SCH (08:43)
[2025-07-09] MEDS: CHLORTHALIDONE 25 MG TAB PO SCH (08:45)
--- NOTE | 2025-07-09 08:49 | P.PN ---
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 Anasarca Hypoalbuminemia Hypocalcemia Tobacco use disorder Plan: Nephrotic syndrome-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 Anasarca Hypoalbuminemia Hypocalcemia Urine protein in the nephrotic range Nephrology consulted/following S/p renal biopsy 07/07 Preliminary renal ultrasound shows primary membranous nephropathy which was positive for anti- PLA2R Per nephrology patient would likely benefit with immunosuppressive therapy We will discuss further Repeat chemistries, LFTs, albumin in the morning blood pressure medications were adjusted for better control Continue diuresis Tobacco use disorder Smokes a pack per day NicoDerm patch ordered DVT PPX: Lovenox Code status: Full code Discharge Plan: Home Plan to discharge in: Greater than 2 days - Advance Directives Does patient have a Living Will: No Does patient have a Durable POA for Healthcare: No Time Spent Managing Pts Care (In Minutes): 35 <Roberto Carrillo - Last Filed: 07/09/25 08:47> Patient was seen and examined. Events of the last 24 hours have been noted. Spoke with with KRISH regarding patient's clinical picture after evaluating and examining the patient independently. I performed a substantial part of the MDM during this patient's care today. I personally made or approved the documented management plan and acknowledge its risk of complications. I agree with the findings and documentation provided in the KRISH's notes. Pathology revealed primary membranous glomerulopathy. however, patient also had some micro thrombi. Will need to continue with anticoagulation going forward. Long-term prognosis is is dependent on patient following up with therapy. Patient requesting stent placement. Will consult case management work on sniff placement on Saturday. Nephrology recommending 1st dose of rituximab in the hospital. <Robel Meng - Last Filed: 07/11/25 23:21>
--- NOTE | 2025-07-09 11:13 | P.PN ---
Nephrology note (S) Discussed renal biopsy findings with pt in detail, tolerated biopsy without apparent complications, denies back pain or gross hematuria. Weight and edema improving it appears, has been getting IV Albumin/Lasix per IM. Endorses some continued SOB. Discussed POC for apparent mod risk PMN given the sig proteinuria > 3.5 gm/24h on spot urine study and other Vitals, medications, blood work and imaging reviewed in the chart General: NAD HEENT: Atraumatic, on LFNC Neck: Supple Respiratory: b/l air entry without wheezing Cardiovascular: Regular rate/rhythm, 2+ distal edema b/l Gastrointestinal: Soft and benign, Non-distended Musculoskeletal: shins are non tender Integumentary: No rashes Neurological: Normal speech, awake, alert, non focal Laboratory Data (last 24 hrs) Reviewed in the EMR Conclusions/Impression: Acute nephrotic syndrome, nephrotic range proteinuria on spot urine testing. 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 -Await anti-PLA2R titer and full report -Cont anti proteinuric therapy BP control (ACEi, MRA, non dihydropyridine CCB, SGLT2i), management of edema and othe -Given mod risk on stratification, if proteinuria persists for > 3 mo, would benefit from immunosuppressive therapy but will hold off on Rituxan ordering here as pt's transient living status may complicate proper f/u, timely labs and other that will needed with an IS protocol/regimen and there could be spont remission in 20-30% of cases Peripheral edema, abnormality of albumin in the setting of above -Albumin < 2, pt at higher risk for VTE, will need to consider ppx anticoagulation but choice of agent and monitoring again may be trick, will need to review with IM, pt within 48h from bx, mild drop in H/H, trend for now -Monitor edema on Lasix, Spironolactone and Jardiance HTN 2nd to renal disorder -Cont current meds
[2025-07-09] MEDS: EMPAGLIFLOZIN 10 MG TABLET PO SCH (12:26)
[2025-07-09] MEDS: ATORVASTATIN 20 MG TAB PO SCH (21:34)
[2025-07-10 06:05] LABS: ALT/SGPT 16.0 U/L (16-61); AST/SGOT 12.0 U/L (15-37); Albumin 1.0 g/dL (3.4-5.0); Albumin/Globulin Ratio 0.3 (1.1-1.8); Alkaline Phosphatase 83.0 U/L (45-117); Anion Gap 6.1 mEq/L (5.0-15.0); BUN Blood Urea Nitrogen 20.0 mg/dL (7-18); Globulin 3.2 g/dL (2.3-3.5); Glucose Level 114.0 mg/dL (74-106); Potassium 4.1 mEq/L (3.5-5.1)
[2025-07-10 07:42] LABS: Hematocrit 58.4 % (39.6-49.0); Hemoglobin 19.5 g/dL (13.6-17.9); MCH 30.8 pg (27.0-35.0); MCHC 33.4 g/dL (32.0-36.0); MCV 92.4 fL (80-100); MPV 7.8 fL (7.6-11.3); RBC Red Blood Cell Count 6.32 M/uL (4.33-5.43); White Blood Count 3.40 thou/uL (4.3-10.9)
[2025-07-10] MEDS: FUROSEMIDE 40 MG TABLET PO SCH (09:21)
--- NOTE | 2025-07-10 09:29 | P.PN ---
Date of Service: 07/10/25 Subjective: Improvement in edema No acute events overnight Preliminary renal biopsy results returned ROS: 10 point ROS as noted above, otherwise negative Physical exam GEN: Alert, oriented, NAD HEENT: Normal conjunctiva, sclera anicteric CV: Regular rate and rhythm, anasarca with pitting edema Pulm: Nonlabored respirations on room air ABD: Soft, nontender, nondistended MSK: No joint tenderness Integumentary: No rashes Neuro: Normal speech, normal affect Vitals reviewed Assessment: Nephrotic syndrome-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 Anasarca Hypoalbuminemia Hypocalcemia Tobacco use disorder Plan: Nephrotic syndrome-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 Anasarca Hypoalbuminemia Hypocalcemia Urine protein in the nephrotic range Nephrology consulted/following S/p renal biopsy 07/07 Preliminary renal ultrasound shows primary membranous nephropathy which was positive for anti- PLA2R Plan for symptomatic management/volume and blood pressure control for now per nephrology Will need further management outpatient, if there is not improvement in the next few months may require immunosuppressive therapy with rituximab Repeat chemistries, LFTs, albumin in the morning blood pressure medications were adjusted for better control Continue diuresis Tobacco use disorder Smokes a pack per day NicoDerm patch ordered DVT PPX: Lovenox Code status: Full code Discharge Plan: Home Plan to discharge in: Greater than 2 days - Advance Directives Does patient have a Living Will: No Does patient have a Durable POA for Healthcare: No Time Spent Managing Pts Care (In Minutes): 35 <Roberto Carrillo - Last Filed: 07/10/25 09:27> Patient was seen and examined. Events of the last 24 hours have been noted. Spoke with with KRISH regarding patient's clinical picture after evaluating and examining the patient independently. I performed a substantial part of the MDM during this patient's care today. I personally made or approved the documented management plan and acknowledge its risk of complications. I agree with the findings and documentation provided in the KRISH's notes. <Robel Meng - Last Filed: 07/11/25 23:24>
[2025-07-10] MEDS ORDERED: RITUXIMAB IV ONE (12:33)
--- NOTE | 2025-07-10 17:22 | PN ---
Date of Progress Note: 07/10/2025 Subjective: Patient was seen and examined at bedside. He is doing okay. Denies any complaints. Fe els about the same. Physical Examination: Vital Signs: Have been reviewed. Blood pressures are stable. General: He appears in no acute distress. Lungs: Clear to auscultation with diminished breath sounds. Extremities: With anasarca noted. Laboratory Data: Showed creatinine of 0.93, sodium of 140, potassium of 4.1, bicarb of 34. CBC resu lts are showing hemoglobin worsening to 19.5, hematocrit 58.4, WBC count of 3.4. Current Medications: Have been reviewed in detail. He is on spironolactone 25 mg b.i.d., Lasix 40 m g daily, Jardiance, and benazepril. 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 At this time, he has had severe anasarc a with severe nephrotic syndrome. Since we have the results of the biopsy, we will initiate for Shona janine therapy to induce remission. Continue SARAI inhibitors for management of proteinuria. Diuretic re gimen cannot be further increased because of contraction alkalosis. We will request hepatitis panel prior to Rituxan therapy and continue all other medications and plan of care. The plan was discussed with the patient and I have also requested for Social Work consult for arranging Rituxan infusion th e 2nd dose as outpatient after 2 weeks of the 1st dose. VV/MODL Voice ID: [id number] Report ID: [id number]
[2025-07-11 06:01] LABS: Hematocrit 33.7 % (39.6-49.0); Hemoglobin 11.6 g/dL (13.6-17.9); MCH 31.6 pg (27.0-35.0); MCHC 34.3 g/dL (32.0-36.0); MCV 92.2 fL (80-100); MPV 7.3 fL (7.6-11.3); RBC Red Blood Cell Count 3.66 M/uL (4.33-5.43); White Blood Count 9.80 thou/uL (4.3-10.9)
[2025-07-11 06:16] LABS: ALT/SGPT 22.0 U/L (16-61); AST/SGOT 16.0 U/L (15-37); Albumin 1.0 g/dL (3.4-5.0); Albumin/Globulin Ratio 0.3 (1.1-1.8); Alkaline Phosphatase 95.0 U/L (45-117); Anion Gap 7.5 mEq/L (5.0-15.0); BUN Blood Urea Nitrogen 17.0 mg/dL (7-18); Globulin 3.4 g/dL (2.3-3.5); Glucose Level 111.0 mg/dL (74-106); Potassium 4.5 mEq/L (3.5-5.1)
--- NOTE | 2025-07-11 09:28 | P.PN ---
Date of Service: 07/11/25 Subjective: Improvement in edema No acute events overnight Preliminary renal biopsy results returned Pending possible immunosuppressive infusion saturday ROS: 10 point ROS as noted above, otherwise negative Physical exam GEN: Alert, oriented, NAD HEENT: Normal conjunctiva, sclera anicteric CV: Regular rate and rhythm, anasarca with pitting edema Pulm: Nonlabored respirations on room air ABD: Soft, nontender, nondistended MSK: No joint tenderness Integumentary: No rashes Neuro: Normal speech, normal affect Vitals reviewed Assessment: Nephrotic syndrome-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 Anasarca Hypoalbuminemia Hypocalcemia Tobacco use disorder Plan: Nephrotic syndrome-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 Anasarca Hypoalbuminemia Hypocalcemia Urine protein in the nephrotic range Nephrology consulted/following S/p renal biopsy 07/07 Preliminary renal ultrasound shows primary membranous nephropathy which was positive for anti- PLA2R Plan for symptomatic management/volume and blood pressure control for now per nephrology nephro considering rituximab infusion Saturday Will need further management outpatient, if there is not improvement in the next few months may require immunosuppressive therapy with rituximab Repeat chemistries, LFTs, albumin in the morning blood pressure medications were adjusted for better control Continue diuresis Tobacco use disorder Smokes a pack per day NicoDerm patch ordered DVT PPX: Lovenox Code status: Full code Discharge Plan: Home Plan to discharge in: Greater than 2 days - Advance Directives Does patient have a Living Will: No Does patient have a Durable POA for Healthcare: No Time Spent Managing Pts Care (In Minutes): 35 <Roberto Carrillo - Last Filed: 07/11/25 09:27> Patient was seen and examined. Events of the last 24 hours have been noted. Spoke with with KRISH regarding patient's clinical picture after evaluating and examining the patient independently. I performed a substantial part of the MDM during this patient's care today. I personally made or approved the documented management plan and acknowledge its risk of complications. I agree with the findings and documentation provided in the KRISH's notes. 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 Patient will need immunosuppressants at discharge. Patient also will need continued strengthening and workup for monitoring renal disease. Continue with rituximab at discharge as well. Will get Physical therapy to evaluate the patient and see if he qualifies for care home facility placement. Will continue with current plan of care at this time. <Robel Meng - Last Filed: 07/11/25 23:26>
[2025-07-12 05:21] LABS: Hematocrit 32.4 % (39.6-49.0); Hemoglobin 10.9 g/dL (13.6-17.9); MCH 31.1 pg (27.0-35.0); MCHC 33.6 g/dL (32.0-36.0); MCV 92.6 fL (80-100); MPV 7.4 fL (7.6-11.3); RBC Red Blood Cell Count 3.50 M/uL (4.33-5.43); White Blood Count 8.10 thou/uL (4.3-10.9)
[2025-07-12 05:44] LABS: ALT/SGPT 21 U/L (16-61); AST/SGOT 13 U/L (15-37); Albumin 0.9 g/dL (3.4-5.0); Albumin/Globulin Ratio ND (1.1-1.8); Alkaline Phosphatase 95 U/L (45-117); Anion Gap 7.3 mEq/L (5.0-15.0); BUN Blood Urea Nitrogen 20 mg/dL (7-18); Globulin 3.3 g/dL (2.3-3.5); Glucose Level 107 mg/dL (74-106); Potassium 4.3 mEq/L (3.5-5.1)
[2025-07-12 07:54] LABS: Hepatitis B Surface Ab - Quant 4.00 mIU/mL (<8.0)
--- NOTE | 2025-07-12 09:07 | P.PN ---
Date of Service: 07/12/25 Subjective: Plan for infusion of rituximab today No other acute events overnight ROS: 10 point ROS as noted above, otherwise negative Physical exam GEN: Alert, oriented, NAD HEENT: Normal conjunctiva, sclera anicteric CV: Regular rate and rhythm, anasarca with pitting edema Pulm: Nonlabored respirations on room air ABD: Soft, nontender, nondistended MSK: No joint tenderness Integumentary: No rashes Neuro: Normal speech, normal affect Vitals reviewed Assessment: Nephrotic syndrome-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 Anasarca Hypoalbuminemia Hypocalcemia Tobacco use disorder Plan: Nephrotic syndrome-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 Anasarca Hypoalbuminemia Hypocalcemia Urine protein in the nephrotic range Nephrology consulted/following S/p renal biopsy 07/07 Preliminary renal ultrasound shows primary membranous nephropathy which was positive for anti- PLA2R Plan for symptomatic management/volume and blood pressure control for now per nephrology Plan for rituximab infusion today Repeat chemistries, LFTs, albumin in the morning Still with edema/anasarca blood pressure medications were adjusted for better control Continue diuresis PT evaluation, may benefit from SNF Tobacco use disorder Smokes a pack per day NicoDerm patch ordered DVT PPX: Lovenox Code status: Full code Discharge Plan: Home Plan to discharge in: Greater than 2 days - Advance Directives Does patient have a Living Will: No Does patient have a Durable POA for Healthcare: No Time Spent Managing Pts Care (In Minutes): 35 <Roberto Carrillo - Last Filed: 07/12/25 09:06> I Have personally reviewed this patient's chart, progress note, and plan of care as documented. I agree with Roberto Jurado NP the assessment and plan as outlined, with any additional comments or modifications noted below <Kye Germain - Last Filed: 07/12/25 15:00>
[2025-07-12] MEDS: APIXABAN 5 MG TABLET PO SCH (09:09)
[2025-07-12] MEDS: NA CHLORIDE 0.9% IV ONE (11:16)
[2025-07-12] MEDS: RITUXIMAB ARRX IV ONE (11:16)
[2025-07-12] MEDS: DIPHENHYDRAMINE 50 MG/ML VIAL IV ONE (12:15)
--- NOTE | 2025-07-12 19:53 | P.PN ---
Date of Service: 07/12/25 Vital Signs Temp Pulse Resp BP Pulse Ox 98.0 F 83 16 116/65 94 07/12/25 16:00 07/12/25 16:00 07/12/25 16:00 07/12/25 16:00 07/12/25 16:00 Medications Apixaban (Apixaban 5 Mg Tablet) 5 mg PO BID [facility] Last Admin: 07/12/25 09:09 Dose: 5 mg Atorvastatin Calcium (Atorvastatin 20 Mg Tab) 20 mg PO BEDTIME [facility] Last Admin: 07/11/25 21:26 Dose: 20 mg Benazepril HCl (Benazepril 20 Mg Tab) 20 mg PO BID [facility] Last Admin: 07/12/25 09:09 Dose: 20 mg Diltiazem HCl (Diltiazem Hcl 120 Mg Sr Cap) 240 mg PO DAILY [facility] Last Admin: 07/12/25 09:08 Dose: 240 mg Docusate Sodium (Docusate Na 100 Mg Cap) 100 mg PO BID [facility] Last Admin: 07/12/25 09:09 Dose: 100 mg Ergocalciferol (Drisdol (Vitamin D=Ergocalciferol) 81197 Unit Cap) 50,000 unit PO Q7D@0900 [facility] Last Admin: 07/06/25 09:50 Dose: 50,000 unit Furosemide (Furosemide 40 Mg Tablet) 40 mg PO DAILY [facility] Last Admin: 07/12/25 09:08 Dose: 40 mg Nicotine (Nicotine 21 Mg/Pat) 21 mg TD DAILY [facility] Last Admin: 07/12/25 09:09 Dose: 21 mg Spironolactone (Spironolactone 25 Mg Tablet) 25 mg PO BID [facility] Last Admin: 07/12/25 09:09 Dose: 25 mg Assessment/ Plan: Nephrology No dyspnea No chest pain No acute events overnight Persistent edema Good urine output Vitals, medications, blood work and imaging reviewed in the chart General: Oriented x3, Cooperative HEENT: Atraumatic Neck: Supple Respiratory: Clear to auscultation bilaterally Cardiovascular: Regular rate/rhythm, Edema Gastrointestinal: Soft and benign, Non-distended Musculoskeletal: No clubbing, No contractures Integumentary: No rashes Neurological: Normal speech Laboratory Data (last 24 hrs) 07/04/25 07/04/25 07/04/25 14:00 14:00 14:00 WBC 11.20 H Hgb 12.8 L Hct 37.5 L Plt Count 358 PT 11.5 INR 1.02 Sodium 143 Potassium 3.8 BUN 26 H Creatinine 1.01 Glucose 136 H Magnesium 2.2 Total Bilirubin 0.2 AST < 10 L ALT 22 Alkaline Phosphatase 101 Imagings Data: EXAMINATION: ONE VIEW CHEST XR CLINICAL INDICATION: Male, 64 years old.,DYSPNEA TECHNIQUE: Frontal chest projection is submitted. Examination is limited by patient positioning and technique. COMPARISON: 07/02/2025. FINDINGS: The lungs are grossly clear although suboptimal inspiratory effort somewhat limits evaluation. No pneumothorax or sizable effusion. The heart is normal in size. Mediastinal contours are unremarkable. IMPRESSION: No acute intrathoracic abnormalities. TECHNIQUE: Real-time ultrasonography of the abdomen was performed. COMPARISON: No prior exam. FINDINGS: Poor penetration somewhat limits evaluation RIGHT KIDNEY: Right renal length measurement: 11.2 cm. Normal in echogenicity and size. No calculus, solid mass or hydronephrosis. Exophytic 2.3 x 2.6 x 1.7 cm cortical cyst near the upper pole. LEFT KIDNEY: Left renal length measurement: 11.4 cm. Normal in echogenicity and size. No calculus, solid mass or hydronephrosis. URINARY BLADDER: Decompressed limiting evaluation. ADDITIONAL FINDINGS: None. IMPRESSION: No acute or significant abnormalities. Incidentally noted anechoic right renal 2.6 cm cyst, without suspicious features. 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 Germain
[2025-07-13 07:42] LABS: Hematocrit 31.6 % (39.6-49.0); Hemoglobin 10.9 g/dL (13.6-17.9); MCH 31.8 pg (27.0-35.0); MCHC 34.5 g/dL (32.0-36.0); MCV 92.1 fL (80-100); MPV 7.4 fL (7.6-11.3); RBC Red Blood Cell Count 3.44 M/uL (4.33-5.43); White Blood Count 5.70 thou/uL (4.3-10.9)
[2025-07-13 08:01] LABS: ALT/SGPT 25 U/L (16-61); AST/SGOT 15 U/L (15-37); Albumin 0.9 g/dL (3.4-5.0); Albumin/Globulin Ratio ND (1.1-1.8); Alkaline Phosphatase 93 U/L (45-117); Anion Gap 9.2 mEq/L (5.0-15.0); BUN Blood Urea Nitrogen 23 mg/dL (7-18); Globulin 3.1 g/dL (2.3-3.5); Glucose Level 103 mg/dL (74-106); Potassium 4.2 mEq/L (3.5-5.1)
[2025-07-13 13:31] LABS: Albumin, (SPE) 1.3 g/dL (3.8-4.8); Total Protein 3.7 g/dL (6.1-8.1)
--- NOTE | 2025-07-13 14:25 | P.PN ---
Subjective Date of Service: 07/13/25 Chief Complaint: Anasarca, hypoalbuminemia Subjective: No chest pain or shortness of breath. No nausea or vomiting. No abdominal pain. No obvious bleeding. Looks comfortable in the bed. Objective: General appearance: Alert and comfortable CVS: Normal S1 and S2 Lungs: Clear to auscultation bilaterally Abdomen: Soft, bowel sounds present, no tenderness Extremities: Mild b/l lower extremity edema Physical Examination - Vital Signs Temperature: 98.1 F Blood Pressure: 118/67 Pulse: 66 Respirations: 16 Pulse Ox (%): 97 Assessment And Plan - Plan Nephrotic syndrome-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 Anasarca Hypoalbuminemia Hypocalcemia Tobacco use disorder Abnormal thyroid labs Plan: Nephrotic syndrome-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 Anasarca Hypoalbuminemia Hypocalcemia Urine protein in the nephrotic range Nephrology consulted/following S/p renal biopsy 07/07 Preliminary renal path shows primary membranous nephropathy which was positive for anti- PLA2R Given rituximab infusion 07/12, with some side effects. Still with edema/anasarca blood pressure medications and diuretics were adjusted by renal PT evaluation, may benefit from SNF Tobacco use disorder Smokes a pack per day NicoDerm patch ordered Plan discussed with the patient and nursing staff, discussed with case management team, will recheck thyroid labs tomorrow Physician Review: Patient Assessed, Agree with Above Assessment and Plan
--- NOTE | 2025-07-13 20:26 | P.PN ---
Date of Service: 07/13/25 Vital Signs Temp Pulse Resp BP Pulse Ox 97.9 F 68 16 132/72 97 07/13/25 16:00 07/13/25 16:00 07/13/25 16:00 07/13/25 16:00 07/13/25 16:00 Medications Apixaban (Apixaban 5 Mg Tablet) 5 mg PO BID [facility] Last Admin: 07/13/25 09:04 Dose: 5 mg Atorvastatin Calcium (Atorvastatin 20 Mg Tab) 20 mg PO BEDTIME [facility] Last Admin: 07/12/25 20:39 Dose: 20 mg Benazepril HCl (Benazepril 20 Mg Tab) 20 mg PO BID [facility] Last Admin: 07/13/25 09:03 Dose: 20 mg Diltiazem HCl (Diltiazem Hcl 120 Mg Sr Cap) 240 mg PO DAILY [facility] Last Admin: 07/13/25 09:03 Dose: 240 mg Docusate Sodium (Docusate Na 100 Mg Cap) 100 mg PO BID [facility] Last Admin: 07/13/25 09:04 Dose: 100 mg Ergocalciferol (Drisdol (Vitamin D=Ergocalciferol) 93722 Unit Cap) 50,000 unit PO Q7D@0900 [facility] Last Admin: 07/13/25 09:04 Dose: 50,000 unit Furosemide (Furosemide 40 Mg Tablet) 40 mg PO DAILY [facility] Last Admin: 07/13/25 09:03 Dose: 40 mg Nicotine (Nicotine 21 Mg/Pat) 21 mg TD DAILY [facility] Last Admin: 07/13/25 09:04 Dose: 21 mg Spironolactone (Spironolactone 25 Mg Tablet) 25 mg PO BID [facility] Last Admin: 07/13/25 09:03 Dose: 25 mg Assessment/ Plan: Nephrology No dyspnea No chest pain No acute events overnight Persistent edema Good urine output Vitals, medications, blood work and imaging reviewed in the chart General: Oriented x3, Cooperative HEENT: Atraumatic Neck: Supple Respiratory: Clear to auscultation bilaterally Cardiovascular: Regular rate/rhythm, Edema Gastrointestinal: Soft and benign, Non-distended Musculoskeletal: No clubbing, No contractures Integumentary: No rashes Neurological: Normal speech Laboratory Data (last 24 hrs) 07/04/25 07/04/25 07/04/25 14:00 14:00 14:00 WBC 11.20 H Hgb 12.8 L Hct 37.5 L Plt Count 358 PT 11.5 INR 1.02 Sodium 143 Potassium 3.8 BUN 26 H Creatinine 1.01 Glucose 136 H Magnesium 2.2 Total Bilirubin 0.2 AST < 10 L ALT 22 Alkaline Phosphatase 101 Imagings Data: EXAMINATION: ONE VIEW CHEST XR CLINICAL INDICATION: Male, 64 years old.,DYSPNEA TECHNIQUE: Frontal chest projection is submitted. Examination is limited by patient positioning and technique. COMPARISON: 07/02/2025. FINDINGS: The lungs are grossly clear although suboptimal inspiratory effort somewhat limits evaluation. No pneumothorax or sizable effusion. The heart is normal in size. Mediastinal contours are unremarkable. IMPRESSION: No acute intrathoracic abnormalities. TECHNIQUE: Real-time ultrasonography of the abdomen was performed. COMPARISON: No prior exam. FINDINGS: Poor penetration somewhat limits evaluation RIGHT KIDNEY: Right renal length measurement: 11.2 cm. Normal in echogenicity and size. No calculus, solid mass or hydronephrosis. Exophytic 2.3 x 2.6 x 1.7 cm cortical cyst near the upper pole. LEFT KIDNEY: Left renal length measurement: 11.4 cm. Normal in echogenicity and size. No calculus, solid mass or hydronephrosis. URINARY BLADDER: Decompressed limiting evaluation. ADDITIONAL FINDINGS: None. IMPRESSION: No acute or significant abnormalities. Incidentally noted anechoic right renal 2.6 cm cyst, without suspicious features. 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 Nephrotic Syndrome -No NSAIDs -Renal US reviewed -Serologies pending -Preliminary Renal Biopsy demonstrates Primary Membranous Nephropathy positive for anti-PLA2R -Rituximab aborted due to diffuse itching Hypernatremia -Resolved HTN with CKD -Continue Benazepril BID -Continue Spironolactone -Continue Diltazem CD -Continue Farxiga Anasarca Severe Hypoalbuminemia -Continue Lasix 40mg Daily -Continue Spironolactone BID Anemia in chronic illness -Monitor H&H Cigarette Smoker -Recommend cessation -Agree with [facility] Hospitalist note reviewed Case reviewed with Dr. Rosado
[2025-07-13 20:46] LABS: C-ANCA Anti-Proteinase 3 <1.0 AI (<1.0); P-ANCA Anti-Myeloperoxidase Ab <1.0 AI (<1.0)
[2025-07-14 07:45] LABS: Absolute Lymphocytes (CBC) 1.0 K/uL (0.7-4.9); Hematocrit 29.7 % (39.6-49.0); Hemoglobin 10.3 g/dL (13.6-17.9); MCH 32.0 pg (27.0-35.0); MCHC 34.8 g/dL (32.0-36.0); MCV 92.0 fL (80-100); MPV 6.8 fL (7.6-11.3); Nucleated RBC Absolute Count 0.0 (0-0); Nucleated Red Blood Cells % 0.1 % (0-0); RBC Red Blood Cell Count 3.23 M/uL (4.33-5.43); White Blood Count 5.60 thou/uL (4.3-10.9)
[2025-07-14 08:10] LABS: Anion Gap 8.1 mEq/L (5.0-15.0); BUN Blood Urea Nitrogen 20.0 mg/dL (7-18); Glucose Level 103.0 mg/dL (74-106); Potassium 4.1 mEq/L (3.5-5.1); Thyroid Stimulating Hormone 2.95 uIU/mL (0.358-3.740)
[2025-07-14 13:40] LABS: Hepatitis C RNA (PCR) <15 IU/mL; Hepatitis C Virus RNA (PCR)log <1.18 log IU/mL
--- NOTE | 2025-07-14 14:49 | P.PN ---
Subjective Date of Service: 07/14/25 Chief Complaint: Anasarca, hypoalbuminemia Subjective: No chest pain or shortness of breath. No nausea or vomiting. No abdominal pain. No obvious bleeding. Looks comfortable in the bed. Objective: General appearance: Alert and comfortable CVS: Normal S1 and S2 Lungs: Clear to auscultation bilaterally Abdomen: Soft, bowel sounds present, no tenderness Extremities: Mild b/l lower extremity edema Physical Examination - Vital Signs Temperature: 97.6 F Blood Pressure: 126/70 Pulse: 67 Respirations: 16 Pulse Ox (%): 98 Assessment And Plan - Plan Nephrotic syndrome-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 Anasarca Hypoalbuminemia Hypocalcemia Tobacco use disorder Abnormal thyroid labs Plan: Nephrotic syndrome-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 Anasarca Hypoalbuminemia Hypocalcemia Urine protein in the nephrotic range Nephrology consulted/following S/p renal biopsy 07/07 Preliminary renal path shows primary membranous nephropathy which was positive for anti- PLA2R Given rituximab infusion 07/12, with some itching, he would like to retry today.. Still with edema/anasarca blood pressure medications and diuretics were adjusted by renal PT evaluation, may benefit from SNF Tobacco use disorder Smokes a pack per day NicoDerm patch ordered Plan discussed with the patient and nursing staff, discussed with case management team, will recheck thyroid labs tomorrow Physician Review: Patient Assessed, Agree with Above Assessment and Plan
--- NOTE | 2025-07-14 21:01 | P.PN ---
Date of Service: 07/14/25 Vital Signs Temp Pulse Resp BP Pulse Ox 97.4 F 70 18 135/70 97 07/14/25 20:00 07/14/25 20:00 07/14/25 20:00 07/14/25 20:00 07/14/25 20:00 Medications Apixaban (Apixaban 5 Mg Tablet) 5 mg PO BID [facility] Last Admin: 07/14/25 09:13 Dose: 5 mg Atorvastatin Calcium (Atorvastatin 20 Mg Tab) 20 mg PO BEDTIME [facility] Last Admin: 07/13/25 20:53 Dose: 20 mg Benazepril HCl (Benazepril 20 Mg Tab) 20 mg PO BID [facility] Last Admin: 07/14/25 09:13 Dose: 20 mg Diltiazem HCl (Diltiazem Hcl 120 Mg Sr Cap) 240 mg PO DAILY [facility] Last Admin: 07/14/25 09:13 Dose: 240 mg Docusate Sodium (Docusate Na 100 Mg Cap) 100 mg PO BID [facility] Last Admin: 07/14/25 09:13 Dose: 100 mg Ergocalciferol (Drisdol (Vitamin D=Ergocalciferol) 69008 Unit Cap) 50,000 unit PO Q7D@0900 [facility] Last Admin: 07/13/25 09:04 Dose: 50,000 unit Furosemide (Furosemide 40 Mg Tablet) 40 mg PO DAILY [facility] Last Admin: 07/14/25 09:13 Dose: 40 mg Nicotine (Nicotine 21 Mg/Pat) 21 mg TD DAILY [facility] Last Admin: 07/14/25 09:13 Dose: 21 mg Spironolactone (Spironolactone 25 Mg Tablet) 25 mg PO BID [facility] Last Admin: 07/14/25 09:13 Dose: 25 mg Assessment/ Plan: Nephrology No dyspnea No chest pain No acute events overnight Persistent edema Good urine output Vitals, medications, blood work and imaging reviewed in the chart General: Oriented x3, Cooperative HEENT: Atraumatic Neck: Supple Respiratory: Clear to auscultation bilaterally Cardiovascular: Regular rate/rhythm, Edema Gastrointestinal: Soft and benign, Non-distended Musculoskeletal: No clubbing, No contractures Integumentary: No rashes Neurological: Normal speech Laboratory Data (last 24 hrs) 07/04/25 07/04/25 07/04/25 14:00 14:00 14:00 WBC 11.20 H Hgb 12.8 L Hct 37.5 L Plt Count 358 PT 11.5 INR 1.02 Sodium 143 Potassium 3.8 BUN 26 H Creatinine 1.01 Glucose 136 H Magnesium 2.2 Total Bilirubin 0.2 AST < 10 L ALT 22 Alkaline Phosphatase 101 Imagings Data: EXAMINATION: ONE VIEW CHEST XR CLINICAL INDICATION: Male, 64 years old.,DYSPNEA TECHNIQUE: Frontal chest projection is submitted. Examination is limited by patient positioning and technique. COMPARISON: 07/02/2025. FINDINGS: The lungs are grossly clear although suboptimal inspiratory effort somewhat limits evaluation. No pneumothorax or sizable effusion. The heart is normal in size. Mediastinal contours are unremarkable. IMPRESSION: No acute intrathoracic abnormalities. TECHNIQUE: Real-time ultrasonography of the abdomen was performed. COMPARISON: No prior exam. FINDINGS: Poor penetration somewhat limits evaluation RIGHT KIDNEY: Right renal length measurement: 11.2 cm. Normal in echogenicity and size. No calculus, solid mass or hydronephrosis. Exophytic 2.3 x 2.6 x 1.7 cm cortical cyst near the upper pole. LEFT KIDNEY: Left renal length measurement: 11.4 cm. Normal in echogenicity and size. No calculus, solid mass or hydronephrosis. URINARY BLADDER: Decompressed limiting evaluation. ADDITIONAL FINDINGS: None. IMPRESSION: No acute or significant abnormalities. Incidentally noted anechoic right renal 2.6 cm cyst, without suspicious features. 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 Hospitalist note reviewed Case reviewed with Dr. Rosado
[2025-07-15 02:37] LABS: Sqamous Epithelial None Seen /HPF (None Seen); Urine Micro Reflex YN NO BILL MICROSCOPIC
[2025-07-15 03:27] LABS: MA/CREAT RATIO 6240.5 (< 30.0); UR CREAT 79.0 mg/dL (20-370); UR MICROALBUMIN 493.0 mg/dL (< 1.9); UR PROTEIN 737.8 mg/dL (<11.9)
[2025-07-15 05:06] LABS: Absolute Lymphocytes (CBC) 1.2 K/uL (0.7-4.9); Hematocrit 31.2 % (39.6-49.0); Hemoglobin 10.8 g/dL (13.6-17.9); MCH 31.7 pg (27.0-35.0); MCHC 34.5 g/dL (32.0-36.0); MCV 92.0 fL (80-100); MPV 6.7 fL (7.6-11.3); Nucleated RBC Absolute Count 0.0 (0-0); Nucleated Red Blood Cells % 0.0 % (0-0); RBC Red Blood Cell Count 3.40 M/uL (4.33-5.43); White Blood Count 5.90 thou/uL (4.3-10.9)
[2025-07-15 05:18] LABS: Anion Gap 9.1 mEq/L (5.0-15.0); BUN Blood Urea Nitrogen 21.0 mg/dL (7-18); Glucose Level 105.0 mg/dL (74-106); Potassium 4.1 mEq/L (3.5-5.1)
[2025-07-15] MEDS: RITUXIMAB IV ONE (09:00)
[2025-07-15] MEDS: ACETAMINOPHEN 500 MG TAB PO ONE (10:18)
[2025-07-15] MEDS: METHYLPREDNISOLONE 125 MG INJ IV ONE (10:18)
--- NOTE | 2025-07-15 11:17 | P.PN ---
Date of Service: 07/15/25 Vital Signs Temp Pulse Resp BP Pulse Ox 97.8 F 71 18 134/73 96 07/15/25 08:00 07/15/25 08:00 07/15/25 08:00 07/15/25 08:00 07/15/25 08:00 Medications Acetaminophen (Acetaminophen 500 Mg Tab) 500 mg PO 1X ONE Stop: 07/15/25 08:01 Apixaban (Apixaban 5 Mg Tablet) 5 mg PO BID [facility] Last Admin: 07/15/25 09:18 Dose: 5 mg Atorvastatin Calcium (Atorvastatin 20 Mg Tab) 20 mg PO BEDTIME [facility] Last Admin: 07/14/25 21:05 Dose: 20 mg Benazepril HCl (Benazepril 20 Mg Tab) 20 mg PO BID [facility] Last Admin: 07/15/25 09:18 Dose: 20 mg Diltiazem HCl (Diltiazem Hcl 120 Mg Sr Cap) 240 mg PO DAILY [facility] Last Admin: 07/15/25 09:17 Dose: 240 mg Diphenhydramine HCl (Diphenhydramine 25 Mg Tab/Cap) 50 mg PO 1X ONE Stop: 07/15/25 08:01 Docusate Sodium (Docusate Na 100 Mg Cap) 100 mg PO BID [facility] Last Admin: 07/15/25 09:18 Dose: 100 mg Ergocalciferol (Drisdol (Vitamin D=Ergocalciferol) 74031 Unit Cap) 50,000 unit PO Q7D@0900 [facility] Last Admin: 07/13/25 09:04 Dose: 50,000 unit Furosemide (Furosemide 40 Mg Tablet) 40 mg PO DAILY [facility] Last Admin: 07/15/25 09:18 Dose: 40 mg Home Med (Rituximab) 1 g IV 1X ONE Stop: 07/15/25 09:01 Methylprednisolone Sodium Succinate (Methylprednisolone 125 Mg Inj) 125 mg IV 1X ONE Stop: 07/15/25 08:31 Nicotine (Nicotine 21 Mg/Pat) 21 mg TD DAILY [facility] Last Admin: 07/15/25 09:18 Dose: 21 mg Spironolactone (Spironolactone 25 Mg Tablet) 25 mg PO BID [facility] Last Admin: 07/15/25 09:18 Dose: 25 mg Assessment/ Plan: Nephrology No dyspnea No chest pain No acute events overnight Persistent edema Vitals, medications, blood work and imaging reviewed in the chart General: Oriented x3, Cooperative HEENT: Atraumatic Neck: Supple Respiratory: Clear to auscultation bilaterally Cardiovascular: Regular rate/rhythm, Edema Gastrointestinal: Soft and benign, Non-distended Musculoskeletal: No clubbing, No contractures Integumentary: No rashes Neurological: Normal speech Laboratory Data (last 24 hrs) 07/04/25 07/04/25 07/04/25 14:00 14:00 14:00 WBC 11.20 H Hgb 12.8 L Hct 37.5 L Plt Count 358 PT 11.5 INR 1.02 Sodium 143 Potassium 3.8 BUN 26 H Creatinine 1.01 Glucose 136 H Magnesium 2.2 Total Bilirubin 0.2 AST < 10 L ALT 22 Alkaline Phosphatase 101 Imagings Data: EXAMINATION: ONE VIEW CHEST XR CLINICAL INDICATION: Male, 64 years old.,DYSPNEA TECHNIQUE: Frontal chest projection is submitted. Examination is limited by patient positioning and technique. COMPARISON: 07/02/2025. FINDINGS: The lungs are grossly clear although suboptimal inspiratory effort somewhat limits evaluation. No pneumothorax or sizable effusion. The heart is normal in size. Mediastinal contours are unremarkable. IMPRESSION: No acute intrathoracic abnormalities. TECHNIQUE: Real-time ultrasonography of the abdomen was performed. COMPARISON: No prior exam. FINDINGS: Poor penetration somewhat limits evaluation RIGHT KIDNEY: Right renal length measurement: 11.2 cm. Normal in echogenicity and size. No calculus, solid mass or hydronephrosis. Exophytic 2.3 x 2.6 x 1.7 cm cortical cyst near the upper pole. LEFT KIDNEY: Left renal length measurement: 11.4 cm. Normal in echogenicity and size. No calculus, solid mass or hydronephrosis. URINARY BLADDER: Decompressed limiting evaluation. ADDITIONAL FINDINGS: None. IMPRESSION: No acute or significant abnormalities. Incidentally noted anechoic right renal 2.6 cm cyst, without suspicious features. 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 Rosado SNF placement pending
--- NOTE | 2025-07-15 12:29 | P.PN ---
Subjective Date of Service: 07/15/25 Chief Complaint: Anasarca, hypoalbuminemia Subjective: No chest pain or shortness of breath. No nausea or vomiting. No abdominal pain. No obvious bleeding. Looks comfortable in the bed. Objective: General appearance: Alert and comfortable CVS: Normal S1 and S2 Lungs: Clear to auscultation bilaterally Abdomen: Soft, bowel sounds present, no tenderness Extremities: Mild b/l lower extremity edema Physical Examination - Vital Signs Temperature: 97.9 F Blood Pressure: 113/68 Pulse: 65 Respirations: 16 Pulse Ox (%): 96 Assessment And Plan - Plan Nephrotic syndrome-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 Anasarca Hypoalbuminemia Hypocalcemia Tobacco use disorder Abnormal thyroid labs Plan: Nephrotic syndrome-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 Anasarca Hypoalbuminemia Hypocalcemia Urine protein in the nephrotic range Nephrology consulted/following S/p renal biopsy 07/07 Preliminary renal path shows primary membranous nephropathy which was positive for anti- PLA2R Given rituximab infusion 07/12, with some itching, so the infusion was stopped. Plan to give Rituxan today with pretreatment as per nephrology. Still with mild edema/anasarca blood pressure medications and diuretics were adjusted by renal PT evaluation, will benefit from SNF Tobacco use disorder Smokes a pack per day NicoDerm patch ordered Plan discussed with the patient and nursing staff, discussed with case management team. Case management team working on rehab placement but they are waiting on final recommendations from renal regarding o/p rituxan Rx. Physician Review: Patient Assessed, Agree with Above Assessment and Plan
[2025-07-16 06:32] LABS: Absolute Lymphocytes (CBC) 1.2 K/uL (0.7-4.9); Hematocrit 30.2 % (39.6-49.0); Hemoglobin 10.6 g/dL (13.6-17.9); MCH 31.6 pg (27.0-35.0); MCHC 35.1 g/dL (32.0-36.0); MCV 90.0 fL (80-100); MPV 6.6 fL (7.6-11.3); Nucleated RBC Absolute Count 0.0 (0-0); Nucleated Red Blood Cells % 0.0 % (0-0); RBC Red Blood Cell Count 3.36 M/uL (4.33-5.43); White Blood Count 6.30 thou/uL (4.3-10.9)
[2025-07-16 06:53] LABS: ALT/SGPT 18 U/L (16-61); AST/SGOT < 10 U/L (15-37); Albumin 0.9 g/dL (3.4-5.0); Albumin/Globulin Ratio ND (1.1-1.8); Alkaline Phosphatase 95 U/L (45-117); Anion Gap 4.2 mEq/L (5.0-15.0); BUN Blood Urea Nitrogen 25 mg/dL (7-18); Bilirubin Indirect, Calculated 0.0 mg/dL (0.2-0.8); Globulin 3.2 g/dL (2.3-3.5); Glucose Level 111 mg/dL (74-106); Potassium 4.2 mEq/L (3.5-5.1)
[2025-07-16] MEDS: METHYLPREDNISOLONE 125 MG INJ IV ONE (10:51)
[2025-07-16] MEDS: DIPHENHYDRAMINE 25 MG TAB/CAP PO ONE (10:51)
[2025-07-16] MEDS: ACETAMINOPHEN 500 MG TAB PO ONE (10:51)
[2025-07-16] MEDS: RITUXIMAB ARRX IV ONE (11:57)
[2025-07-16] MEDS: NA CHLORIDE 0.9% IV ONE (11:57)
--- NOTE | 2025-07-16 15:38 | P.PN ---
Subjective Date of Service: 07/16/25 Chief Complaint: Anasarca, hypoalbuminemia Subjective: Improving (No acute events overnight. Patient is waiting for placement to SNF.) Physical Examination - Vital Signs Temperature: 98.1 F Blood Pressure: 143/83 Pulse: 66 Respirations: 18 Pulse Ox (%): 98 - Physical Exam General: Alert, In no apparent distress, Cooperative HEENT: Atraumatic, Normocephalic Respiratory: Clear to auscultation bilaterally, Normal air movement Cardiovascular: No edema, Normal pulses, Regular rate/rhythm, Normal S1 S2 Neurological: Normal speech Assessment And Plan - Plan Assessment Patient is a 64-year-old male who presented to the hospital with shortness of breath and volume overload. Patient was admitted for anasarca secondary to nephrotic syndrome. He eventually underwent renal biopsy with pathology consistent with membranous glomerulopathy. Patient has been started on immunosuppressive agents, received the first dose of rituximab yesterday. He did develop diffuse hives as rituximab was given alone without premedication. Primary membranous glomerulopathy Anasarca Nephrotic syndrome Plan: Will give another dose of rituximab with pre-medication at this time Anticipate biweekly dose of 1 g of rituximab after discharge This will need to be follow-up with nephrology, Dr. Blackwood Patient does not have to wait Case discussed during MDR as well Patient is pending placement to residential facility Physician Review: Patient Assessed, Agree with Above Assessment and Plan
--- NOTE | 2025-07-16 17:49 | P.PN ---
Nephrology note (S) Delayed entry note, pt seen this AM on rounds, pt seen prior to Rituxan infusion, discussed medication with pt and RN, pt had received pre medication protocol with steroids, anti histamine and Tylenol. Discussed slow infusion rate with RN Vitals, medications, blood work and imaging reviewed in the chart General: NAD HEENT: Atraumatic, on LFNC Neck: Supple Respiratory: b/l air entry without wheezing Cardiovascular: Regular rate/rhythm, 2+ distal edema b/l Gastrointestinal: Soft and benign, Non-distended Musculoskeletal: shins are non tender Integumentary: No rashes Neurological: Normal speech, awake, alert, non focal Laboratory Data (last 24 hrs) Reviewed in the EMR Conclusions/Impression: Acute nephrotic syndrome, nephrotic range proteinuria on spot urine testing. 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 Blackwood has ordered initial Rituxan dose with pre-medication for today, apparently 2nd attempt to give medication. Will monitor closely for tolerance and if tolerated, can receive 2nd dose in a few weeks, there are various protocols Peripheral edema, abnormality of albumin in the setting of above -Albumin < 2, pt at higher risk for VTE, will need to consider ppx anticoagulation and appears Eliquis 5 mg BID has been ordered since last seen. H/H has downward trended some since admission, monitor closely -Monitor edema on Lasix, Spironolactone and Jardiance. Improved since admission HTN 2nd to renal disorder -Cont current meds, BP has improved sig, no reports of relative hypotension or dizzy symptoms
[2025-07-17 05:43] LABS: Absolute Lymphocytes (CBC) 0.3 K/uL (0.7-4.9); Hematocrit 31.9 % (39.6-49.0); Hemoglobin 11.0 g/dL (13.6-17.9); MCH 31.4 pg (27.0-35.0); MCHC 34.5 g/dL (32.0-36.0); MCV 91.2 fL (80-100); MPV 7.7 fL (7.6-11.3); Nucleated RBC Absolute Count 0.0 (0-0); Nucleated Red Blood Cells % 0.0 % (0-0); RBC Red Blood Cell Count 3.50 M/uL (4.33-5.43); White Blood Count 10.50 thou/uL (4.3-10.9)
[2025-07-17 05:58] LABS: Anion Gap 10.3 mEq/L (5.0-15.0); BUN Blood Urea Nitrogen 26.0 mg/dL (7-18); Glucose Level 229.0 mg/dL (74-106); Potassium 4.3 mEq/L (3.5-5.1)
[2025-07-17 09:28] LABS: Anisocytosis 1+; Blood Morphology Comment NOTED (NOT SEEN); Dohle Bodies NOTED; White Blood Cell Scan OK (OK)
[2025-07-17 09:29] LABS: Stomatocytes 1+
[2025-07-18 05:59] LABS: Absolute Lymphocytes (CBC) 1.9 K/uL (0.7-4.9); Hematocrit 30.7 % (39.6-49.0); Hemoglobin 10.6 g/dL (13.6-17.9); MCH 32.0 pg (27.0-35.0); MCHC 34.5 g/dL (32.0-36.0); MCV 92.8 fL (80-100); MPV 6.8 fL (7.6-11.3); Nucleated RBC Absolute Count 0.0 (0-0); Nucleated Red Blood Cells % 0.0 % (0-0); RBC Red Blood Cell Count 3.31 M/uL (4.33-5.43); White Blood Count 9.40 thou/uL (4.3-10.9)
[2025-07-18 06:11] LABS: Anion Gap 6.4 mEq/L (5.0-15.0); BUN Blood Urea Nitrogen 27.0 mg/dL (7-18); Glucose Level 104.0 mg/dL (74-106); Potassium 4.4 mEq/L (3.5-5.1)
[2025-07-19 06:34] VITALS: BMI 27.4
--- NOTE | 2025-07-19 11:29 | P.PN ---
Nephrology note (S) No events over the weekend, tolerated Rituximab dose on Fri without issues, BP controlled, edema and weights improved, mild orthostatic symptoms when OOB discussed, discharge plans discussed Vitals, medications, blood work and imaging reviewed in the chart General: NAD HEENT: Atraumatic, on LFNC Neck: Supple Respiratory: b/l air entry without wheezing Cardiovascular: Regular rate/rhythm, 2+ distal edema b/l Gastrointestinal: Soft and benign, Non-distended Musculoskeletal: shins are non tender Integumentary: No rashes Neurological: Normal speech, awake, alert, non focal Laboratory Data (last 24 hrs) Reviewed in the EMR Conclusions/Impression: Acute nephrotic syndrome, nephrotic range proteinuria on spot urine testing. 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 Blackwood had ordered last Sat initial Rituxan dose with pre- medication for today, no issues on 2nd attempt Pt can receive 2nd dose in a few weeks, there are various protocols Peripheral edema, abnormality of albumin in the setting of above -Albumin < 2, pt at higher risk for VTE, will need to consider ppx anticoagulation and appears Eliquis 5 mg BID has been ordered since last seen. H/H has downward trended some since admission, monitor closely, currently holding > 10 -Monitor edema on Lasix, Spironolactone and Jardiance. Improved since admission HTN 2nd to renal disorder -Cont current meds overall but will cut back Spironolactone to once a day, BP has improved sig, monitor for relative hypotension or dizzy symptoms Cleared to discharged from my perspective
[2025-07-19 13:00] VITALS: BP 132/77; TEMP 98.2
[2025-07-19] MEDS: ACETAMINOPHEN 325 MG TABLET PO ONE (13:54)
[2025-07-20] MEDS ORDERED: SPIRONOLACTONE 25 MG TABLET PO SCH (09:00)
--- NOTE | 2025-07-20 17:30 | RAD REPORT ---
EXAM:Mod Sed by Rad Init 15 Mins HISTORY: FINDINGS: Documentation for Moderate Sedation Transcribed Date/Time: 07/20/2025 5:29 PM
== END 2025-07-19 14:55 | DRG 699 ==
LOC: ER 12:55 → ERHOLD 15:34 → 2ND 17:14
PROVIDERS: ADMIT Family Medicine; ATTEND Hospitalist
PROC: 0T913ZX Drainage of Left Kidney, Percutaneous Approach, Diagnostic (ICD-10-PCS; principal; 2025-07-07)
PROC: 05HC33Z Insertion of Infusion Device into Left Basilic Vein, Percutaneous Approach (ICD-10-PCS; 2025-07-11)
DX: N04.21 Primary membranous nephropathy with nephrotic syndrome (principal); E87.0 Hyperosmolality and hypernatremia; Z59.00 Homelessness unspecified; N17.9 Acute kidney failure, unspecified; E86.0 Dehydration; E83.51 Hypocalcemia; E87.70 Fluid overload, unspecified; N18.1 Chronic kidney disease, stage 1; D63.1 Anemia in chronic kidney disease; E88.09 Other disorders of plasma-protein metabolism, not elsewhere classified; F17.210 Nicotine dependence, cigarettes, uncomplicated; Z79.52 Long term (current) use of systemic steroids; Z90.49 Acquired absence of other specified parts of digestive tract; Z79.899 Other long term (current) drug therapy
CPT/HCPCS: 36415; 50200; 71045; 76770; 80048; 80053; 80061; 80069; 80076; 81001; 81003; 82040; 82043; 82570; 83520; 83735; 83880; 84100; 84156; 84165; 84439; 84443; 84484; 84550; 85025; 85027; 85610; 85730; 86021; 86038; 86160; 86335; 86592; 86593; 86704; 86705; 86706; 86803; 87340; 87389; 87522; 88300; 93005; 96365; 96367; 96375; 97116; 97161; 99152; 99285; J0612; J1200; J1650; J1938; J2250; J2312; J2919; J3010; J7030; J7040; J7050; P9047; Q5123